=== PATIENT | female | born 1950 | race Asian ===

== ENCOUNTER 2016-10-20 14:01 | Inpatient (IN) | payer MEDICARE ==
[2016-10-20] MEDS ORDERED: ACETAMINOPHEN 325 MG TABLET PO ONE (14:11)
--- NOTE | 2016-10-20 14:14 | ER Document Report ---
ED Medical Screen (RME) - General Stated Complaint: DIFFICULTY BREATHING Time seen by provider: 14:09 Notes: Patient presents with family member complaining of trouble breathing, fever, pain all over her couple of days. Patient has a history of lung cancer, and only has one lung. Left lung removed 14 years ago. I have greeted and performed a rapid initial assessment of this patient. A comprehensive ED assessment and evaluation of the patient, analysis of test results and completion of the medical decision making process will be conducted by additional ED providers. TRAVEL OUTSIDE OF THE [place] IN LAST 30 DAYS: No - Related Data Allergies/Adverse Reactions: No Known Allergies Allergy (Verified 10/20/16 14:08) Past Medical History - Past Medical History Cardiac Medical History: Reports: Hx Congestive Heart Failure Denies: Hx Coronary Artery Disease, Hx Heart Attack, Hx Hypertension Pulmonary Medical History: Reports: Hx COPD - LEFT LUNG REMOVED, Hx Pneumonia Denies: Hx Asthma, Hx Bronchitis Neurological Medical History: Denies: Hx Cerebrovascular Accident, Hx Seizures Malignancy Medical History: Reports: Hx Lung Cancer Musculoskeltal Medical History: Denies Hx Arthritis Psychiatric Medical History: Denies: Hx Depression Past Surgical History: Denies: Hx Hysterectomy - Immunizations Hx Diphtheria, Pertussis, Tetanus Vaccination: Yes Physical Exam - Respiratory Respiratory status: Tachypnea - No wheezing or rhonchi noted on auscultation.
[2016-10-20 14:48] LABS: ABSOLUTE LYMPHOCYTES (AUTO) 0.8 10^3/uL (0.5-4.7); ABSOLUTE MONOCYTES (AUTO) 0.9 10^3/uL (0.1-1.4); ABSOLUTE NEUT (AUTO) 14.4 10^3/uL (1.7-8.2); BASOPHILS % (AUTO) 0.1 % (0-2); HEMATOCRIT 35.6 % (36.0-47.0); HGB HCT DIFFERENCE 0.4; LYMPHOCYTES % (AUTO) 5.1 % (13-45); MEAN CORPUSCULAR HGB CONC 33.6 g/dL (32.0-36.0); MEAN CORPUSCULAR VOLUME 89 fl (80-97); MONOCYTES % (AUTO) 5.3 % (3-13); RED BLOOD COUNT 3.99 10^6/uL (3.72-5.28); RED CELL DISTRIBUTION WIDTH 12.7 % (11.5-14.0); SEGMENTED NEUTROPHILS % (AUTO) 89.5 % (42-78); WHITE BLOOD COUNT 16.1 10^3/uL (4.0-10.5)
[2016-10-20 15:06] LABS: ALANINE AMINOTRANSFERASE 32 U/L (9-52); ALBUMIN 3.6 g/dL (3.5-5.0); ALKALINE PHOSPHATASE 87 U/L (38-126); ANION GAP 14 (5-19); ASPARTATE AMINO TRANSFERASE 26 U/L (14-36); BILIRUBIN,TOTAL 0.6 mg/dL (0.2-1.3); BLOOD UREA NITROGEN 18 mg/dL (7-20); CALCIUM 8.9 mg/dL (8.4-10.2); CARBON DIOXIDE 26 mmol/L (22-30); CHLORIDE 94 mmol/L (98-107); CREATINE KINASE 38 U/L (30-135); CREATININE RESULT 0.65 mg/dL (0.52-1.25); GLUCOSE 149 mg/dL (75-110); POTASSIUM 4.4 mmol/L (3.6-5.0); SODIUM 133.7 mmol/L (137-145); TOTAL PROTEIN 6.8 g/dL (6.3-8.2)
[2016-10-20 15:17] LABS: CREATINE KINASE MB 0.38 ng/mL (<4.55); TROPONIN I 0.02 ng/mL
[2016-10-20 15:24] LABS: APPEARANCE,URINE CLOUDY; BILIRUBIN,URINE NEGATIVE (NEGATIVE); GLUCOSE, URINE NEGATIVE (NEGATIVE); KETONES,URINE NEGATIVE (NEGATIVE); LEUKOCYTE ESTERASE,URINE TRACE (NEGATIVE); NITRITE,URINE NEGATIVE (NEGATIVE); PROTEIN,URINE 100 mg/dL (NEGATIVE); URINE SPECIFIC GRAVITY 1.028
--- NOTE | 2016-10-20 15:51 | ER Document Report ---
ED Respiratory Problem - General Chief Complaint: Breathing Difficulty Stated Complaint: DIFFICULTY BREATHING Information source: Patient Notes: Patient is a 65-year-old female with past medical history as recorded including a left lung partial resection around 14 years ago secondary to lung cancer, congestive heart failure with defibrillator placement, who presents today with the onset around 2 days ago of some body aches, chills, mild productive cough, runny nose and congestion. She also states a mild sore throat. She denies any fevers, abdominal pain, dysuria, or diarrhea. Patient also states the last 2 days she has had some pain to the area of her defibrillator site. She denies any swelling, redness, or discharge. She states that the pain is brought on by "touching the area". TRAVEL OUTSIDE OF THE [place] IN LAST 30 DAYS: No - HPI Patient complains to provider of: Cough, Short of breath Onset: Other - See above Duration: Better Quality of pain: Achy Severity: Mild Pain Level: 1 Context: Other - See above Short of Breath: Mild Cough: Productive Sputum amount: Scant Sputum color: Clear Associated symptoms: Other - See above Similar symptoms previously: Yes Recently seen / treated by doctor: Yes - Related Data Allergies/Adverse Reactions: No Known Allergies Allergy (Verified 10/20/16 14:08) Past Medical History - General Information source: Patient - Social History Smoking Status: Unknown if Ever Smoked Chew tobacco use (# tins/day): No Frequency of alcohol use: None Drug Abuse: None Family History: Reviewed & Not Pertinent Patient has suicidal ideation: No Patient has homicidal ideation: No - Past Medical History Cardiac Medical History: Reports: Hx Congestive Heart Failure Denies: Hx Coronary Artery Disease, Hx Heart Attack, Hx Hypertension Pulmonary Medical History: Reports: Hx COPD - LEFT LUNG REMOVED, Hx Pneumonia Denies: Hx Asthma, Hx Bronchitis Neurological Medical History: Denies: Hx Cerebrovascular Accident, Hx Seizures Renal/ Medical History: Denies: Hx Peritoneal Dialysis Malignancy Medical History: Reports: Hx Lung Cancer Musculoskeltal Medical History: Denies Hx Arthritis Psychiatric Medical History: Denies: Hx Depression Past Surgical History: Denies: Hx Hysterectomy - Immunizations Hx Diphtheria, Pertussis, Tetanus Vaccination: Yes Hx Pneumococcal Vaccination: 05/18/15 Review of Systems - Review of Systems Constitutional: Fever EENT: Nose congestion, Nose discharge. denies: Eye discharge Cardiovascular: denies: Palpitations Respiratory: Cough, Short of breath Gastrointestinal: denies: Vomiting Genitourinary: denies: Dysuria Musculoskeletal: denies: Leg swelling Skin: Other - no hives. denies: Rash Neurological/Psychological: Other - no slurred speech -: Yes All other systems reviewed and negative Physical Exam - Vital signs Vitals: Temp Pulse Resp BP Pulse Ox 102.3 F H 105 H 45 H 130/86 H 97 10/20/16 14:09 10/20/16 14:09 10/20/16 14:09 10/20/16 14:09 10/20/16 14:09 Notes: Reviewed vital signs and nursing note as charted by RN. CONSTITUTIONAL: Alert and oriented and responds appropriately to questions. Well -appearing; well-nourished HEAD: Normocephalic; atraumatic ENT: Normal nose; no rhinorrhea; moist mucous membranes; pharynx with a minimal erythema with a midline uvula with no peritonsillar swelling or exudate. NECK: Supple without meningismus; non-tender; no cervical lymphadenopathy, no masses CARD: Regular rate and rhythm; no murmurs, no clicks, no rubs, no gallops; symmetric distal pulses RESP: Mild decreased breath sounds to the left side consistent with previous surgery. No rhonchi or wheezing to the right lung caba. Patient has no obvious swelling, erythema to the left anterior defibrillator site. ABD/GI: Normal bowel sounds; non-distended; soft, non-tender BACK: The back appears normal and is non-tender to palpation, there is no CVA tenderness EXT: Normal ROM in all joints; non-tender to palpation; no cyanosis, no effusions, no edema SKIN: Normal color for age and race; warm; dry; good turgor; capillary refill < 2 seconds; no acute lesions noted NEURO: Moves all extremities equally; Motor and sensory function intact PSYCH: The patient's mood and manner are appropriate. Grooming and personal hygiene are appropriate. Course - Re-evaluation Re-evalutation: 10/20/16 15:50 Given the history and physical examination we will order an x-ray of the chest, obtain blood cultures, influenza testing, rapid strep, urinalysis, and reassess the patient. Antipyretics have been provided. Given the atypical nature of the chest pain that has been constant for 2 days, we will obtain one troponin and EKG. Heart rate 102, sinus tachycardia, normal axis, no obvious ST elevation or depression. Previous EKG shows no new or worrisome findings. - Vital Signs Vital signs: Temp Pulse Resp BP Pulse Ox 102.3 F H 105 H 32 H 113/79 93 10/20/16 14:09 10/20/16 14:09 10/20/16 15:00 10/20/16 15:01 10/20/16 15:00 - Laboratory Result Diagrams: 10/20/16 14:23 10/20/16 14:23 Laboratory results interpreted by me: 10/20/16 10/20/16 10/20/16 14:23 14:23 15:00 WBC 16.1 H Hct 35.6 L Seg Neutrophils % 89.5 H Lymphocytes % 5.1 L Absolute Neutrophils 14.4 H Sodium 133.7 L Chloride 94 L Glucose 149 H Urine Protein 100 H Urine Blood LARGE H Urine Urobilinogen 2.0 H Ur Leukocyte Esterase TRACE H Discharge - Discharge Clinical Impression: Chest wall pain Pneumonia Qualifiers: Pneumonia type: due to unspecified organism Laterality: right Lung location: middle lobe of lung Qualified Code(s): J18.1 - Lobar pneumonia, unspecified organism Condition: Fair Disposition: ADMITTED INPATIENT Admitting Provider: Hospitalist Unit Admitted: [facility]
--- NOTE | 2016-10-20 16:11 | EKG REPORT ---
SEVERITY:- ABNORMAL ECG - SINUS RHYTHM OLD ANTERIOR DE NONSPECIFIC LATERAL ST CHANGES. : Confirmed by: Kiran Arauz MD 20-Oct-2016 16:10:36
[2016-10-20] MEDS ORDERED: AZITHROMYCIN INJ 500 MG VIAL IV ONE (16:15)
[2016-10-20] MEDS ORDERED: CEFTRIAXONE RTU 1 GM/D5W 50 ML IV ONE (16:15)
[2016-10-20] MEDS ORDERED: IPRATROPIUM/ALBUTEROL 0.5-2.5 MG/3 ML AMPUL NEB PRN (17:42)
--- NOTE | 2016-10-20 17:54 | PDOC H&P ---
History of Present Illness Admission Date/PCP: 10/20/16 16:51 Dr Rivera Patient complains of: Shortness of breath History of Present Illness: CURT MONTERO is a 65 year old female with past medical history as recorded including a left lung partial resection around 14 years ago secondary to lung cancer, congestive heart failure with defibrillator placement, who presents today with the onset around 2 days ago of some body aches, chills, mild productive cough, runny nose and congestion. She also states a mild sore throat. She denies any fevers, abdominal pain, dysuria , or diarrhea. Patient also states the last 2 days she has had some pain to the area of her defibrillator site. She denies any swelling, redness, or discharge. She states that the pain is brought on by "touching the area". Upon evaluation in the ED patient was found to have a right lower lobe infiltrate, and a white count of 16,000 Her fever was 100.2 She was admitted under hospitalist service for intravenous antibiotics and further management Past Medical History Cardiac Medical History: Reports: Congestive Heart Failure Denies: Coronary Artery Disease, Myocardial Infarction, Hypertension Pulmonary Medical History: Reports: Chronic Obstructive Pulmonary Disease (COPD ) - LEFT LUNG REMOVED, Pneumonia Denies: Asthma, Bronchitis Neurological Medical History: Denies: Seizures Malignancy Medical History: Reports: Lung Cancer Musculoskeltal Medical History: Denies: Arthritis Psychiatric Medical History: Denies: Depression Hematology: Reports: Anemia Past Surgical History Past Surgical History: Reports: Other - Left pneumonectomy 2002 Denies: Hysterectomy Social History Information Source: Patient Lives with: Alone Smoking Status: Former Smoker - Until 2002 Frequency of Alcohol Use: None Hx Recreational Drug Use: No Drugs: None Hx Prescription Drug Abuse: No - Advance Directive Resuscitation Status: Full Code Surrogate healthcare decision maker:: Her daughter Dora Family History Parental Family History Reviewed: Yes - father of an [place] Children Family History Reviewed: Yes Sibling(s) Family History Reviewed.: Yes Medication/Allergy Home Medications: Aspirin [Aspirin 81 mg Chewable Tablet] 81 mg PO DAILY #30 tab.chew 09/11/14 Carvedilol [Coreg 6.25 mg Tablet] 6.25 mg PO Q12 #60 tablet 09/11/14 Digoxin [Lanoxin 0.125 mg Tablet] 0.125 mg PO DAILY #30 tablet 09/11/14 Fluticasone Propionate [Flonase Nasal [place] 50 Mcg/[place] 16 gm] 1 spray NASL DAILY #1 spray.pump 09/11/14 Lisinopril [Prinivil 5 mg Tablet] 2.5 mg PO DAILY #30 tablet 09/11/14 Thiamine HCl [Thiamine 100 mg Tablet] 100 mg PO DAILY #30 tablet 09/11/14 Aspirin 81 mg PO DAILY 09/07/15 Oxycodone HCl/Acetaminophen [Oxycodon-Acetaminophen 2.5-325] 1 each PO DAILY Pyridoxine HCl [Vitamin B-6] 25 mg PO DAILY 09/07/15 Allergies/Adverse Reactions: No Known Allergies Allergy (Verified 10/20/16 14:08) Review of Systems Constitutional: PRESENT: fever(s), weakness, other - Cough Eyes: ABSENT: visual disturbances Cardiovascular: PRESENT: chest pain - Pain no anterior chest wall where the defibrillator is, dyspnea on exertion Gastrointestinal: ABSENT: abdominal pain, constipation, diarrhea, hematemesis, hematochezia, nausea, vomiting Genitourinary: ABSENT: dysuria, hematuria Musculoskeletal: ABSENT: joint swelling Integumentary: ABSENT: rash, wounds Neurological: ABSENT: abnormal gait, abnormal speech, confusion, dizziness, focal weakness, syncope Psychiatric: ABSENT: anxiety, depression, homidical ideation, suicidal ideation Hematologic/Lymphatic: ABSENT: easy bleeding, easy bruising Physical Exam Vital Signs: Temp Pulse Resp BP Pulse Ox 100.2 F 105 H 22 H 124/72 97 10/20/16 17:10 10/20/16 14:09 10/20/16 17:01 10/20/16 17:01 10/20/16 17:01 General appearance: PRESENT: no acute distress, cooperative, thin Head exam: PRESENT: atraumatic, normocephalic Eye exam: PRESENT: conjunctiva pink, EOMI, PERRLA. ABSENT: scleral icterus Neck exam: ABSENT: carotid bruit, JVD, lymphadenopathy, thyromegaly Respiratory exam: PRESENT: decreased breath sounds. ABSENT: accessory muscle use, retraction Cardiovascular exam: PRESENT: RRR. ABSENT: diastolic murmur, rubs, systolic murmur Pulses: PRESENT: normal dorsalis pedis pul GI/Abdominal exam: PRESENT: normal bowel sounds, soft. ABSENT: distended, guarding, mass, organolmegaly, rebound, tenderness Musculoskeletal exam: PRESENT: full ROM. ABSENT: deformity Neurological exam: PRESENT: alert, awake, oriented to person, oriented to place , oriented to time, oriented to situation, CN II-XII grossly intact. ABSENT: motor sensory deficit Psychiatric exam: PRESENT: appropriate affect, normal mood. ABSENT: homicidal ideation, suicidal ideation Skin exam: PRESENT: dry, intact, warm. ABSENT: cyanosis, rash Results Laboratory Results: Labs- All tests 24 hr 10/20/16 10/20/16 10/20/16 14:23 14:23 14:23 WBC 16.1 H RBC 3.99 Hgb 12.0 Hct 35.6 L MCV 89 MCH 30.0 MCHC 33.6 RDW 12.7 Plt Count 201 Seg Neutrophils % 89.5 H Lymphocytes % 5.1 L Monocytes % 5.3 Eosinophils % 0.0 Basophils % 0.1 Absolute Neutrophils 14.4 H Absolute Lymphocytes 0.8 Absolute Monocytes 0.9 Absolute Eosinophils 0.0 Absolute Basophils 0.0 Sodium 133.7 L Potassium 4.4 Chloride 94 L Carbon Dioxide 26 Anion Gap 14 BUN 18 Creatinine 0.65 Est GFR ( Amer) > 60 Est GFR (Non-Af Amer) > 60 Glucose 149 H Lactic Acid Calcium 8.9 Total Bilirubin 0.6 Direct Bilirubin 0.0 AST 26 ALT 32 Alkaline Phosphatase 87 Creatine Kinase 38 CK-MB (CK-2) 0.38 Troponin I 0.020 Total Protein 6.8 Albumin 3.6 Urine Color Urine Appearance Urine pH Ur Specific [place] Urine Protein Urine Glucose (UA) Urine Ketones Urine Blood Urine Nitrite Urine Bilirubin Urine Urobilinogen Ur Leukocyte Esterase Urine WBC (Auto) Urine RBC (Auto) Urine Bacteria (Auto) Squamous Epi Cells Auto U Non-Squamous Epis Auto Urine Mucus (Auto) Urine Ascorbic Acid Influenza A (Rapid) Influenza B (Rapid) Group A Strep Rapid 10/20/16 10/20/16 10/20/16 14:23 15:00 15:00 WBC RBC Hgb Hct MCV MCH MCHC RDW Plt Count Seg Neutrophils % Lymphocytes % Monocytes % Eosinophils % Basophils % Absolute Neutrophils Absolute Lymphocytes Absolute Monocytes Absolute Eosinophils Absolute Basophils Sodium Potassium Chloride Carbon Dioxide Anion Gap BUN Creatinine Est GFR ( Amer) Est GFR (Non-Af Amer) Glucose Lactic Acid 1.2 Calcium Total Bilirubin Direct Bilirubin AST ALT Alkaline Phosphatase Creatine Kinase CK-MB (CK-2) Troponin I Total Protein Albumin Urine Color YELLOW Urine Appearance CLOUDY Urine pH 5.0 Ur Specific [place] 1.028 Urine Protein 100 H Urine Glucose (UA) NEGATIVE Urine Ketones NEGATIVE Urine Blood LARGE H Urine Nitrite NEGATIVE Urine Bilirubin NEGATIVE Urine Urobilinogen 2.0 H Ur Leukocyte Esterase TRACE H Urine WBC (Auto) 5 Urine RBC (Auto) >182 Urine Bacteria (Auto) TRACE Squamous Epi Cells Auto 5 U Non-Squamous Epis Auto 2 Urine Mucus (Auto) RARE Urine Ascorbic Acid NEGATIVE Influenza A (Rapid) NEGATIVE Influenza B (Rapid) NEGATIVE Group A Strep Rapid 10/20/16 15:26 WBC RBC Hgb Hct MCV MCH MCHC RDW Plt Count Seg Neutrophils % Lymphocytes % Monocytes % Eosinophils % Basophils % Absolute Neutrophils Absolute Lymphocytes Absolute Monocytes Absolute Eosinophils Absolute Basophils Sodium Potassium Chloride Carbon Dioxide Anion Gap BUN Creatinine Est GFR ( Amer) Est GFR (Non-Af Amer) Glucose Lactic Acid Calcium Total Bilirubin Direct Bilirubin AST ALT Alkaline Phosphatase Creatine Kinase CK-MB (CK-2) Troponin I Total Protein Albumin Urine Color Urine Appearance Urine pH Ur Specific [place] Urine Protein Urine Glucose (UA) Urine Ketones Urine Blood Urine Nitrite Urine Bilirubin Urine Urobilinogen Ur Leukocyte Esterase Urine WBC (Auto) Urine RBC (Auto) Urine Bacteria (Auto) Squamous Epi Cells Auto U Non-Squamous Epis Auto Urine Mucus (Auto) Urine Ascorbic Acid Influenza A (Rapid) Influenza B (Rapid) Group A Strep Rapid POSITIVE EKG Comments: SINUS RHYTHM - STMT - * OLD ANTERIOR [place] - STMT - * NONSPECIFIC LATERAL ST CHANGES Impressions: Chest X-Ray 10/20/16 14:11 IMPRESSION: Nodule versus early or developing right mid lung infiltrate Assessment & Plan - Diagnosis (1) Strep pharyngitis Is this a current diagnosis for this admission?: YesPlan: 10/20/16 15:26 Group A Strep Rapid POSITIVE We will continue ceftriaxone IV (2) Status post internal cardiac defibrillator procedure Is this a current diagnosis for this admission?: Yes (4) Pneumonia Qualifiers: Pneumonia type: due to unspecified organism Laterality: right Lung location: middle lobe of lung Qualified Code(s): J18.1 - Lobar pneumonia, unspecified organism Is this a current diagnosis for this admission?: YesPlan: Community-acquired pneumonia We'll continue ceftriaxone and azithromycin We will have a CT of the chest performed in a.m. as the infiltrate is not well delineated (5) Chronic systolic CHF (congestive heart failure) Is this a current diagnosis for this admission?: YesPlan: Last echocardiogram performed 06/16/2016 showed an EF of 55% and mild diastolic dysfunction Troponins are in intermediate range we will repeat them every 6 hours - Time Time Spent with patient: Patient will be admitted to an IMCU unit as an inpatient Time Spent: 50 to 70 Minutes - Inpatient Certification Based on my medical assessment, after consideration of the patient's comorbidities, presenting symptoms, or acuity I expect that the services needed warrant INPATIENT care.: Yes I certify that my determination is in accordance with my understanding of Medicare's requirements for reasonable and necessary INPATIENT services [42 CFR 412.3e].: Yes Medical Necessity: Need For Continuous Telemetry Monitoring, Need for Nebulizer Therapy and Monitoring of Response
[2016-10-20] MEDS: ACETAMINOPHEN 325 MG TABLET PO PRN (20:34)
[2016-10-20] MEDS: KETOROLAC TROMETHAMINE INJ/PF 30 MG/1 ML SDV IV PRN (20:57)
[2016-10-20] MEDS: FAMOTIDINE 20 MG TABLET PO SCH (23:22)
[2016-10-20] MEDS: CARVEDILOL 6.25 MG TABLET PO SCH (23:23)
[2016-10-21 04:23] LABS: HEMATOCRIT 32.2 % (36.0-47.0); HGB HCT DIFFERENCE 0.8; MEAN CORPUSCULAR HEMOGLOBIN 30.2 pg (27.0-33.4); MEAN CORPUSCULAR VOLUME 89 fl (80-97); RED BLOOD COUNT 3.63 10^6/uL (3.72-5.28); RED CELL DISTRIBUTION WIDTH 12.8 % (11.5-14.0); WHITE BLOOD COUNT 14.7 10^3/uL (4.0-10.5)
[2016-10-21 04:39] LABS: ALANINE AMINOTRANSFERASE 34 U/L (9-52); ALBUMIN 2.7 g/dL (3.5-5.0); ALKALINE PHOSPHATASE 64 U/L (38-126); ANION GAP 11 (5-19); ASPARTATE AMINO TRANSFERASE 26 U/L (14-36); BILIRUBIN,TOTAL 0.6 mg/dL (0.2-1.3); BLOOD UREA NITROGEN 23 mg/dL (7-20); CALCIUM 8.3 mg/dL (8.4-10.2); CARBON DIOXIDE 23 mmol/L (22-30); CHLORIDE 97 mmol/L (98-107); CREATININE RESULT 0.66 mg/dL (0.52-1.25); GLUCOSE 157 mg/dL (75-110); POTASSIUM 4.1 mmol/L (3.6-5.0); SODIUM 130.7 mmol/L (137-145); TOTAL PROTEIN 5.5 g/dL (6.3-8.2)
[2016-10-21] MEDS ORDERED: CEFTRIAXONE 1 GM/D5W RTU 1 GM/50 ML RTUPB IV SCH (10:00)
[2016-10-21] MEDS ORDERED: AZITHROMYCIN 500 MG in DEXTROSE 5%-WATER 250 ML IV SCH (10:00)
[2016-10-21] MEDS ORDERED: LISINOPRIL 5 MG TABLET PO SCH ×2 (10:00→18:00)
[2016-10-21] MEDS: ENOXAPARIN SODIUM INJ 30 MG/0.3 ML DISP.SYRIN SUBCUT SCH (10:54)
[2016-10-21] MEDS: CARVEDILOL 6.25 MG TABLET PO SCH (10:57)
[2016-10-21] MEDS: FAMOTIDINE 20 MG TABLET PO SCH ×2 (10:57→21:08)
[2016-10-21] MEDS: ASPIRIN 81 MG TABLET, CHEWABLE PO SCH (10:57)
[2016-10-21] MEDS ORDERED: CARVEDILOL 6.25 MG TABLET PO SCH (13:09)
[2016-10-21] MEDS ORDERED: FUROSEMIDE INJ/PF 20 MG/2 ML SDV IV ONE (14:00)
--- NOTE | 2016-10-21 15:37 | PDOC PROGRESS REPORT ---
Subjective Progress Note for:: 10/21/16 Subjective:: 65 year old female extremely frail with a known history of left pneumonectomy for Ca about 13 years ago, previous smoker Was admitted with increasing shortness of breath patient was diagnosed of pneumonia ; a CT of the chest performed yesterday showed infiltrates in the right middle and lower lobe Patient was still febrile this morning but feeling somewhat better, she is currently on Levaquin and cefepime She has no chest pain, nausea vomiting or abdominal pain Although she is still somewhat tachypneic she is oxygenating today at 94% on 2 L /mn Physical Exam Vital Signs: Temp Pulse Resp BP Pulse Ox 101.4 F H 92 28 H 116/59 L 94 10/21/16 11:21 10/21/16 14:00 10/21/16 12:15 10/21/16 11:21 10/21/16 12:15 Intake & Output 10/20/16 10/21/16 10/22/16 00:59 00:59 00:59 Intake Total 208 Balance 208 Weight 40.7 kg General appearance: PRESENT: no acute distress, cooperative Head exam: PRESENT: atraumatic, normocephalic Eye exam: PRESENT: conjunctiva pink, EOMI, PERRLA. ABSENT: scleral icterus Neck exam: ABSENT: carotid bruit, JVD, lymphadenopathy, thyromegaly Respiratory exam: PRESENT: accessory muscle use, decreased breath sounds, tachypnea, wheezes Cardiovascular exam: PRESENT: RRR. ABSENT: gallop, rubs, systolic murmur Pulses: PRESENT: normal dorsalis pedis pul GI/Abdominal exam: PRESENT: normal bowel sounds, soft. ABSENT: distended, guarding, mass, organolmegaly, rebound, tenderness Neurological exam: PRESENT: alert, awake, oriented to person, oriented to place , oriented to time, oriented to situation, CN II-XII grossly intact. ABSENT: motor sensory deficit Skin exam: PRESENT: dry, intact, warm. ABSENT: cyanosis, rash Results Laboratory Results: 10/21/16 04:01 10/21/16 04:01 10/21/16 10/21/16 10/21/16 04:01 04:01 04:01 WBC 14.7 H RBC 3.63 L Hgb 11.0 L Hct 32.2 L MCV 89 MCH 30.2 MCHC 34.0 RDW 12.8 Plt Count 150 Sodium 130.7 L Potassium 4.1 Chloride 97 L Carbon Dioxide 23 Anion Gap 11 BUN 23 H Creatinine 0.66 Est GFR ( Amer) > 60 Est GFR (Non-Af Amer) > 60 Glucose 157 H Calcium 8.3 L Total Bilirubin 0.6 AST 26 ALT 34 Alkaline Phosphatase 64 Total Protein 5.5 L Albumin 2.7 L TSH 1.05 10/20/16 10/21/16 20:05 04:01 Troponin I 0.018 0.016 EKG Comments: STMT - * SINUS RHYTHM - STMT - * OLD ANTERIOR [place] - STMT - * NONSPECIFIC LATERAL ST CHANGES Impressions: Chest X-Ray 10/20/16 14:11 IMPRESSION: Nodule versus early or developing right mid lung infiltrate Chest CT 10/21/16 08:00 IMPRESSION: Right middle and lower lobe airspace disease. In the appropriate clinical setting this is consistent with pneumonia. However there are all small pulmonary nodules so the possibility of metastatic disease cannot be excluded. Empiric therapy and follow-up is recommended. Assessment & Plan - Diagnosis (1) Strep pharyngitis Is this a current diagnosis for this admission?: YesPlan: Continue treatment with ceftriaxone (2) Status post internal cardiac defibrillator procedure Is this a current diagnosis for this admission?: Yes (4) Pneumonia Qualifiers: Pneumonia type: due to unspecified organism Laterality: right Lung location: middle lobe of lung Qualified Code(s): J18.1 - Lobar pneumonia , unspecified organism Is this a current diagnosis for this admission?: YesPlan: No sputum has been obtained yet; 2 blood cultures were negative Continue broad spectrum with Levaquin and cefepime (5) Diastolic CHF Qualifiers: Congestive heart failure chronicity: chronic Qualified Code(s): I50.32 - Chronic diastolic (congestive) heart failure Is this a current diagnosis for this admission?: YesPlan: Chronic diastolic CHF Patient has had BNP is over 20,000 in the past We will just give the patient 10 mg IV Lasix Noted that an echocardiogram performed on 06/01/2016 showed an EF of 55% and mild diastolic dysfunction (6) Pulmonary nodules Is this a current diagnosis for this admission?: YesPlan: 2 nodules described in the right lower lobe Patient should be followed as an outpatient with serial CAT scans - Time Time Spent with patient: 25-34 minutes
[2016-10-21] MEDS: ACETAMINOPHEN 325 MG TABLET PO PRN (15:41)
[2016-10-21] MEDS: CEFEPIME 1 GM/D5W RTU 1 GM/50 ML RTUPB IV SCH (18:38)
[2016-10-21] MEDS: CARVEDILOL 3.125 MG TABLET PO SCH (21:08)
[2016-10-21] MEDS: LISINOPRIL 5 MG TABLET PO SCH (21:08)
[2016-10-21] MEDS: KETOROLAC TROMETHAMINE INJ/PF 30 MG/1 ML SDV IV PRN (21:11)
[2016-10-22] MEDS: CEFEPIME 1 GM/D5W RTU 1 GM/50 ML RTUPB IV SCH (05:39)
[2016-10-22] MEDS: LISINOPRIL 5 MG TABLET PO SCH (09:11)
[2016-10-22] MEDS: FAMOTIDINE 20 MG TABLET PO SCH (09:11)
[2016-10-22] MEDS: ASPIRIN 81 MG TABLET, CHEWABLE PO SCH (09:11)
[2016-10-22] MEDS: ENOXAPARIN SODIUM INJ 30 MG/0.3 ML DISP.SYRIN SUBCUT SCH (09:12)
[2016-10-22] MEDS: CARVEDILOL 3.125 MG TABLET PO SCH (09:12)
[2016-10-22] MEDS ORDERED: AZITHROMYCIN 250 MG TABLET PO SCH (10:00)
--- NOTE | 2016-10-22 10:30 | PDOC DISCHARGE SUMMARY ---
General - Admit/Disc Date/PCP Admission Date/Primary Care Provider: 10/20/16 17:42 Discharge Date: 10/22/16 - Discharge Diagnosis (1) Chest wall pain Is this a current diagnosis for this admission?: YesSummary: Resolved and likely secondary to pneumonia, possibly related to scar tissue and around the pacer pocket without evidence of acute infection or complication. (2) Pneumonia Is this a current diagnosis for this admission?: YesSummary: Likely strep, continue a 10 day course of penicillin. Follow up with primary care provider in 10 days to confirm clearing. (3) Pulmonary nodules Is this a current diagnosis for this admission?: YesSummary: Likely related to the acute infection, recommend follow-up CT scan in 3-6 months. (4) Strep pharyngitis Is this a current diagnosis for this admission?: YesSummary: Continue penicillin therapy for an additional 10 days. Salt water gargles as needed. - Additional Information Resuscitation Status: Full Code Discharge Diet: As Tolerated Discharge Activity: Activity As Tolerated Home Medications: Aspirin [Aspirin 325 mg Tablet] 325 mg PO DAILY 10/21/16 Gabapentin [Neurontin 300 mg Capsule] 300 mg PO QHS 10/21/16 Acetaminophen [Tylenol 325 mg Tablet] 650 mg PO Q6HP PRN tablet 10/22/16 Amox Tr/Potassium Clavulanate [Augmentin 875-125 mg Tablet] 1 tab PO BID #20 tablet 10/22/16 Carvedilol [Coreg 3.125 mg Tablet] 3.125 mg PO Q12 #60 tablet 10/22/16 Lisinopril [Prinivil 5 mg Tablet] 2.5 mg PO Q12 #30 tablet 10/22/16 History of Present Illness Patient complains of: Cough and congestion with fevers and chills History of Present Illness: CURT MONTERO is a 65 year old female with past medical history as recorded including a left lung partial resection around 14 years ago secondary to lung cancer, congestive heart failure with defibrillator placement, who presents today with the onset around 2 days ago of some body aches, chills, mild productive cough, runny nose and congestion. She also states a mild sore throat. She denies any fevers, abdominal pain, dysuria , or diarrhea. Patient also states the last 2 days she has had some pain to the area of her defibrillator site. She denies any swelling, redness, or discharge. She states that the pain is brought on by "touching the area". Upon evaluation in the ED patient was found to have a right lower lobe infiltrate, and a white count of 16,000 Her fever was 100.2 She was admitted under hospitalist service for intravenous antibiotics and further management Hospital Course Hospital Course: She was admitted to the hospital and started on broad spectrum antibiotics, rapid strep screen was positive, blood cultures 2 were negative, CT of the chest showed a multilobar pneumonia in the right middle and lower lobe with small pulmonary nodules incidentally noted. Over the course of the next 48 hours she rapidly improved, was weaned off supplemental oxygen easily and on the day of discharge is actually asking to go home. She states her fever broke more than 24 hours ago and since that time she has felt well enough to go home. She is currently oxygenating greater than 94% on room air for this provider at the bedside. She is able speak in complete word sentences without pausing for respiration and is clearly in no acute distress. At this point she is stable for discharge home. She should follow-up with her primary care provider in 7-10 days to confirm clearing of the pneumonia and resolution of the pharyngitis. She can return to the emergency department for any worsening in her condition. Physical Exam Vital Signs: Temp Pulse Resp BP Pulse Ox 97.3 F 66 18 128/61 H 95 10/22/16 07:35 10/22/16 07:35 10/22/16 07:35 10/22/16 07:35 10/22/16 07:35 Intake & Output 10/21/16 10/22/16 10/23/16 06:59 06:59 06:59 Intake Total 208 1993 Balance 208 1993 Weight 40.7 kg 40.1 kg EXAM GENERAL: NAD; well developed, well nourished; no obese; alert and oriented to person, place, time, situation HEENT: normocephalic, atraumatic; no conjunctival injection, no scleral icterus ; oral mucosa moist; posterior oropharynx mildly erythematous without exudate, erosions or lesions; no cervical adenopathy RESPIRATORY: no accessory muscle use, no increased WOB, good air entry bilaterally; no wheezes, rales, rhonchi; bilateral right greater than left inspiratory crackles, mild CARDIO: no JVD; RRR; no systolic murmur; no tachycardia GI: soft; nondistended; normal bowel sounds; no rebound, rigidity, guarding VASCULAR: no carotid bruit; no abdominal bruit; no pallor; 2+ radial, DP pulse ; normal capillary refill EXTREMITIES: no calf tender; no palpable cords in calf; no clubbing, cyanosis , pedal edema PSYCH: normal affect, normal mood SKIN: warm; moist; no petechiae; no telengectasias; no jaundice; no rash Results Laboratory Results: 10/21/16 04:01 10/21/16 04:01 10/20/16 10/21/16 20:05 04:01 Troponin I 0.018 0.016 Impressions: Chest X-Ray 10/20/16 14:11 IMPRESSION: Nodule versus early or developing right mid lung infiltrate Chest CT 10/21/16 08:00 IMPRESSION: Right middle and lower lobe airspace disease. In the appropriate clinical setting this is consistent with pneumonia. However there are all small pulmonary nodules so the possibility of metastatic disease cannot be excluded. Empiric therapy and follow-up is recommended. Qualifiers PATEINT BEING DISCHARGED WITH ANY OF THE FOLLOWING DIAGNOSIS?: No VTE patient discharged on overlapping Therapy?: Yes Plan Discharge Plan: Discharge home for continued antibiotics, follow-up with PCP in 7-10 days, return to the emergency if worsening condition. Patient expresses no concerns about going home today and quite in fact anxious to go home. Time Spent: Greater than 30 Minutes
[2016-10-22 16:19] VITALS: BP 119/62
== END 2016-10-22 17:39 | disposition home or self-care (01) | DRG 152 ==
LOC: ER 14:01 → UNDOADMIN 16:51 → EH 16:51 → 3W 18:37
PROVIDERS: ADMIT Emergency Medicine; ATTEND Emergency Medicine
DX: J02.0 Streptococcal pharyngitis (principal); J18.1 Lobar pneumonia, unspecified organism; J18.9 Pneumonia, unspecified organism; I50.22 Chronic systolic (congestive) heart failure; J44.0 Chronic obstructive pulmonary disease with (acute) lower respiratory infection; R91.1 Solitary pulmonary nodule; Z85.118 Personal history of other malignant neoplasm of bronchus and lung; Z90.2 Acquired absence of lung [part of]; Z95.810 Presence of automatic (implantable) cardiac defibrillator; Z87.891 Personal history of nicotine dependence
CPT/HCPCS: 36415; 71020; 71250; 80053; 81001; 82550; 82553; 83605; 83880; 84443; 84484; 85025; 85027; 87040; 87804; 87880; 93005; 93010; 94660; 96374; 99285; J0456; J0692; J0696; J1650; J1885; J1940; J7060; J7620

== ENCOUNTER 2017-02-06 17:11 | Emergency (ER) | payer MEDICARE ==
--- NOTE | 2017-02-06 18:03 | ER Document Report ---
ED Medical Screen (RME) - General Chief Complaint: Abdominal Pain Stated Complaint: BLOOD IN URINE Time Seen by Provider: 02/06/17 17:48 Notes: Patient is complaining of pain with urinating since this morning. Has been off and on in the past. Noted some blood in the toilet bowl after urinating this morning. She first started having this problem 5 or 6 months ago. She has seen a local urologist and, according to the daughter, had a cystoscopy done and there were no significant findings such as cancer, etc. Patient has not had a fever. History of lung cancer surgery many years ago. History of defibrillator. Hypertension. TRAVEL OUTSIDE OF THE [place] IN LAST 30 DAYS: No - Related Data Allergies/Adverse Reactions: No Known Allergies Allergy (Verified 10/20/16 14:08) Past Medical History - Past Medical History Cardiac Medical History: Reports: Hx Congestive Heart Failure Denies: Hx Coronary Artery Disease, Hx Heart Attack, Hx Hypertension Pulmonary Medical History: Reports: Hx COPD - LEFT LUNG REMOVED, Hx Pneumonia Denies: Hx Asthma, Hx Bronchitis Neurological Medical History: Denies: Hx Cerebrovascular Accident, Hx Seizures Renal/ Medical History: Denies: Hx Peritoneal Dialysis Malignancy Medical History: Reports: Hx Lung Cancer Musculoskeltal Medical History: Denies Hx Arthritis Psychiatric Medical History: Denies: Hx Depression Past Surgical History: Reports: Other - Left pneumonectomy 2002. Denies: Hx Hysterectomy - Immunizations Hx Diphtheria, Pertussis, Tetanus Vaccination: Yes Physical Exam - Vital signs Vitals: Temp Pulse Resp BP Pulse Ox 97.6 F 84 24 H 129/63 H 97 02/06/17 17:17 02/06/17 17:17 02/06/17 17:17 02/06/17 17:17 02/06/17 17:17 Course - Vital Signs Vital signs: Temp Pulse Resp BP Pulse Ox 97.6 F 84 24 H 129/63 H 97 02/06/17 17:17 02/06/17 17:17 02/06/17 17:17 02/06/17 17:17 02/06/17 17:17
[2017-02-06 18:11] LABS: ABSOLUTE EOSINOPHILS # (AUTO) 0.2 10^3/uL (0.0-0.6); ABSOLUTE LYMPHOCYTES (AUTO) 1.9 10^3/uL (0.5-4.7); ABSOLUTE MONOCYTES (AUTO) 0.5 10^3/uL (0.1-1.4); ABSOLUTE NEUT (AUTO) 2.9 10^3/uL (1.7-8.2); BASOPHILS % (AUTO) 0.4 % (0-2); EOSINOPHILS % (AUTO) 3.5 % (0-6); HEMATOCRIT 38.2 % (36.0-47.0); HEMOGLOBIN 12.7 g/dL (12.0-15.5); HGB HCT DIFFERENCE -0.1; LYMPHOCYTES % (AUTO) 34.5 % (13-45); MEAN CORPUSCULAR HEMOGLOBIN 29.8 pg (27.0-33.4); MEAN CORPUSCULAR HGB CONC 33.2 g/dL (32.0-36.0); MEAN CORPUSCULAR VOLUME 90 fl (80-97); MONOCYTES % (AUTO) 9.4 % (3-13); RED BLOOD COUNT 4.26 10^6/uL (3.72-5.28); RED CELL DISTRIBUTION WIDTH 12.5 % (11.5-14.0); SEGMENTED NEUTROPHILS % (AUTO) 52.2 % (42-78); WHITE BLOOD COUNT 5.5 10^3/uL (4.0-10.5)
[2017-02-06 18:22] LABS: PROTHROMBIN TIME 13.4 SEC (11.4-15.4)
[2017-02-06 18:35] LABS: ALANINE AMINOTRANSFERASE 27 U/L (9-52); ALBUMIN 3.8 g/dL (3.5-5.0); ALKALINE PHOSPHATASE 84 U/L (38-126); ANION GAP 10 (5-19); ASPARTATE AMINO TRANSFERASE 26 U/L (14-36); BILIRUBIN,DIRECT 0.2 mg/dL (0.0-0.4); BILIRUBIN,TOTAL 0.3 mg/dL (0.2-1.3); BLOOD UREA NITROGEN 8 mg/dL (7-20); CALCIUM 9.1 mg/dL (8.4-10.2); CARBON DIOXIDE 29 mmol/L (22-30); CHLORIDE 100 mmol/L (98-107); CREATININE RESULT 0.61 mg/dL (0.52-1.25); GLUCOSE 103 mg/dL (75-110); POTASSIUM 4.2 mmol/L (3.6-5.0); SODIUM 139.2 mmol/L (137-145); TOTAL PROTEIN 7.1 g/dL (6.3-8.2)
[2017-02-06 18:47] LABS: APPEARANCE,URINE CLEAR; BILIRUBIN,URINE NEGATIVE (NEGATIVE); GLUCOSE, URINE NEGATIVE (NEGATIVE); KETONES,URINE NEGATIVE (NEGATIVE); LEUKOCYTE ESTERASE,URINE NEGATIVE (NEGATIVE); NITRITE,URINE NEGATIVE (NEGATIVE); PROTEIN,URINE NEGATIVE (NEGATIVE); URINE SPECIFIC GRAVITY 1.002; UROBILINOGEN,URINE NEGATIVE mg/dL (<2.0)
--- NOTE | 2017-02-06 21:08 | RADIOLOGY REPORT (SQ) ---
EXAM DESCRIPTION: CT LTD RENAL STONE PROTOCOL ON COMPLETED DATE/TIME: 02/06/2017 8:50 pm REASON FOR STUDY: flank pain, right hematura COMPARISON: May 2015 TECHNIQUE: CT scan of the abdomen and pelvis performed without intravenous or oral contrast. Images reviewed with lung, soft tissue, and bone windows. Reconstructed coronal and sagittal MPR images revi ewed. All images stored on PACS. All CT scanners at this facility use dose modulation, iterative reconstruction, and/or weight based d osing when appropriate to reduce radiation dose to as low as reasonably achievable (ALARA). [facility]: Dose Right [facility]: CareDose [facility]: Dose Right [facility]: Teradose 4D [facility]: [employer] RADIATION DOSE: 4.80mGy. LIMITATIONS: None. FINDINGS: LOWER CHEST: Patient is status post left pneumonectomy. NON-CONTRASTED LIVER, SPLEEN, ADRENALS: Evaluation limited by lack of IV contrast. No identified sign ificant masses. PANCREAS: No masses. No peripancreatic inflammatory changes. GALLBLADDER: No identified stones by CT criteria. No inflammatory changes to suggest cholecystitis. RIGHT KIDNEY AND URETER: No suspicious masses. Assessment limited by lack of IV contrast. No signif icant calcifications. No hydronephrosis or hydroureter. LEFT KIDNEY AND URETER: No suspicious masses. Assessment limited by lack of IV contrast. No signifi cant calcifications. No hydronephrosis or hydroureter. AORTA AND RETROPERITONEUM: No aneurysm. No retroperitoneal masses or adenopathy. BOWEL AND PERITONEAL CAVITY: No obvious masses or inflammatory changes. No free fluid. APPENDIX: Normal. PELVIS, BLADDER, AND ABDOMINAL WALL:No abnormal masses. No free fluid. Bladder normal. BONES: No significant findings. OTHER: No other significant finding. IMPRESSION: NO SIGNIFICANT OR ACUTE PROCESS IN THE ABDOMEN OR PELVIS. TECHNICAL DOCUMENTATION: JOB ID: [id number] Quality ID # [id number]: Final reports with documentation of one or more dose reduction techniques (e.g., Au tomated exposure control, adjustment of the mA and/or kV according to patient size, use of iterative reconstruction technique) 2010 [employer]- All Rights Reserved
--- NOTE | 2017-02-06 21:17 | ER Document Report ---
ED General - General Chief Complaint: Abdominal Pain Stated Complaint: BLOOD IN URINE Time Seen by Provider: 02/06/17 17:48 Mode of Arrival: Ambulatory Information source: Patient, Relative Notes: 66-year-old female presents with complaints of hematuria. Patient notes symptoms started just prior to arrival, patient has urinated since and the bleeding has stopped. Patient admits to mild right flank pain Denies any fevers chills nausea vomiting or diarrhea TRAVEL OUTSIDE OF THE [place] IN LAST 30 DAYS: No - HPI Onset: Just prior to arrival Onset/Duration: Sudden Quality of pain: Achy Severity: Mild Pain Level: 1 Associated symptoms: None Exacerbated by: Denies Relieved by: Denies Similar symptoms previously: No Recently seen / treated by doctor: No - Related Data Allergies/Adverse Reactions: No Known Allergies Allergy (Verified 10/20/16 14:08) Past Medical History - Social History Smoking Status: Never Smoker Cigarette use (# per day): No Chew tobacco use (# tins/day): No Smoking Education Provided: No Family History: Reviewed & Not Pertinent Patient has suicidal ideation: No Patient has homicidal ideation: No - Past Medical History Cardiac Medical History: Reports: Hx Congestive Heart Failure Denies: Hx Coronary Artery Disease, Hx Heart Attack, Hx Hypertension Pulmonary Medical History: Reports: Hx COPD - LEFT LUNG REMOVED, Hx Pneumonia Denies: Hx Asthma, Hx Bronchitis Neurological Medical History: Denies: Hx Cerebrovascular Accident, Hx Seizures Renal/ Medical History: Denies: Hx Peritoneal Dialysis Malignancy Medical History: Reports: Hx Lung Cancer Musculoskeltal Medical History: Denies Hx Arthritis Psychiatric Medical History: Denies: Hx Depression Past Surgical History: Reports: Other - Left pneumonectomy 2002. Denies: Hx Hysterectomy - Immunizations Hx Diphtheria, Pertussis, Tetanus Vaccination: Yes Hx Pneumococcal Vaccination: 05/18/15 Review of Systems - Review of Systems Notes: REVIEW OF SYSTEMS: CONSTITUTIONAL : Denies fever, chills, or sweats. Denies recent illness. EENT: Denies eye, ear, throat, or mouth pain or symptoms. Denies nasal or sinus congestion or discharge. Denies throat, tongue, or mouth swelling or difficulty swallowing. CARDIOVASCULAR: Denies chest pain. Denies palpitations or racing or irregular heart beat. Denies ankle edema. RESPIRATORY: Denies cough, cold, or chest congestion. Denies shortness of breath, difficulty breathing, or wheezing. GASTROINTESTINAL: Denies abdominal pain or distention. Denies nausea, vomiting , or diarrhea. Denies blood in vomitus, stools, or per rectum. Denies black, tarry stools. Denies constipation. Admits to right flank pain GENITOURINARY: Admits to blood in urine FEMALE GENITOURINARY: Denies vaginal bleeding, heavy or abnormal periods, irregular periods. Denies vaginal discharge or odor. MUSCULOSKELETAL: Denies back or neck pain or stiffness. Denies joint pain or swelling. SKIN: Denies rash, lesions or sores. HEMATOLOGIC : Denies easy bruising or bleeding. LYMPHATIC: Denies swollen, enlarged glands. NEUROLOGICAL: Denies confusion or altered mental status. Denies passing out or loss of consciousness. Denies dizziness or lightheadedness. Denies headache. Denies weakness or paralysis or loss of use of either side. Denies problems with gait or speech. Denies sensory loss, numbness, or tingling. Denies seizures. PSYCHIATRIC: Denies anxiety or stress. Denies depression, suicidal ideation, or homicidal ideation. ALL OTHER SYSTEMS REVIEWED AND NEGATIVE. PHYSICAL EXAMINATION: GENERAL: Well-appearing, well-nourished and in no acute distress. HEAD: Atraumatic, normocephalic. EYES: Pupils equal round and reactive to light, extraocular movements intact, conjunctiva are normal. ENT: Nares patent, oropharynx clear without exudates. Moist mucous membranes. NECK: Normal range of motion, supple without lymphadenopathy LUNGS: Breath sounds clear to auscultation bilaterally and equal. No wheezes rales or rhonchi. HEART: Regular rate and rhythm without murmurs ABDOMEN: Soft, nontender, nondistended abdomen. No guarding, no rebound. No masses appreciated. Female : deferred Musculoskeletal: Normal range of motion, no pitting or edema. No cyanosis. NEUROLOGICAL: Cranial nerves grossly intact. Normal speech, normal gait. Normal sensory, motor exams PSYCH: Normal mood, normal affect. SKIN: Warm, Dry, normal turgor, no rashes or lesions noted. Dictation was performed using [employer] recognition software Physical Exam - Vital signs Vitals: Temp Pulse Resp BP Pulse Ox 97.6 F 84 24 H 129/63 H 97 02/06/17 17:17 02/06/17 17:17 06/22/17 17:17 02/06/17 17:17 02/06/17 17:17 Course - Re-evaluation Re-evalutation: 02/06/17 21:16 CT noted no acute abnormality patient will be given follow-up with urology for hematuria and is otherwise well-appearing stable for discharge Urinalysis notes no sign of infection After performing a Medical Screening Examination, I estimate there is LOW risk for ACUTE APPENDICITIS, BOWEL OBSTRUCTION, ACUTE CHOLECYSTITIS, PERFORATED DIVERTICULITIS, INCARCERATED HERNIA, PANCREATITIS, PELVIC INFLAMMATORY DISEASE, PERFORATED ULCER, ECTOPIC , or TUBO-OVARIAN ABSCESS, thus I consider the discharge disposition reasonable. Also, there is no evidence or peritonitis , sepsis, or toxicity. I have reevaluated this patient multiple times and no significant life threatening changes are noted. The patient and I have discussed the diagnosis and risks, and we agree with discharging home with close follow-up with the understanding that symptoms and presentations can change. We also discussed returning to the Emergency Department immediately if new or worsening symptoms occur. We have discussed the symptoms which are most concerning (e.g., bloody stool, fever, changing or worsening pain, vomiting) that necessitate immediate return. 02/07/17 02:10 - Vital Signs Vital signs: Temp Pulse Resp BP Pulse Ox 97.6 F 74 18 112/57 L 97 02/06/17 21:37 02/06/17 21:37 02/06/17 21:37 02/06/17 21:37 02/06/17 21:37 - Laboratory Result Diagrams: 02/06/17 18:00 02/06/17 18:00 Laboratory results interpreted by me: 02/06/17 18:00 Urine Blood SMALL H - Diagnostic Test Radiology reviewed: Image reviewed, Reports reviewed - No acute abnormality Discharge - Discharge Clinical Impression: Hematuria, Flank pain Condition: Stable Disposition: HOME, SELF-CARE Instructions: Hematuria (OM) Referrals: INEZ ADAN DO [Primary Care Provider] - Follow up as needed REBECCA HUGO MD [ACTIVE STAFF] - Follow up tomorrow
[2017-02-06 21:38] VITALS: BP 112/57
== END 2017-02-06 21:50 | disposition home or self-care (01) ==
LOC: ER 17:11
DX: R31.9 Hematuria, unspecified (principal); R10.9 Unspecified abdominal pain; J44.9 Chronic obstructive pulmonary disease, unspecified; Z85.118 Personal history of other malignant neoplasm of bronchus and lung; Z90.2 Acquired absence of lung [part of]
CPT/HCPCS: 36415; 76380; 80053; 81001; 85025; 85610; 87086; 99284

== ENCOUNTER 2017-03-06 17:51 | Inpatient (IN) | payer MEDICARE ==
[2017-03-06] MEDS ORDERED: NORMAL SALINE 1000 ML 1,000 ML IV ONE (18:07)
--- NOTE | 2017-03-06 18:09 | ER Document Report ---
ED Medical Screen (RME) - General Chief Complaint: Fever Stated Complaint: DIFFICULTY BREATHING Time Seen by Provider: 03/06/17 18:07 Notes: Patient has had cough with green sputum fever and shortness of breath for 3-4 days. Patient has had a similar episode in the past with pneumonia. Patient does have a history of a lobectomy for lung cancer. TRAVEL OUTSIDE OF THE [place] IN LAST 30 DAYS: No - Related Data Allergies/Adverse Reactions: No Known Allergies Allergy (Verified 10/20/16 14:08) Past Medical History - Past Medical History Cardiac Medical History: Reports: Hx Congestive Heart Failure Denies: Hx Coronary Artery Disease, Hx Heart Attack, Hx Hypertension Pulmonary Medical History: Reports: Hx COPD - LEFT LUNG REMOVED, Hx Pneumonia Denies: Hx Asthma, Hx Bronchitis Neurological Medical History: Denies: Hx Cerebrovascular Accident, Hx Seizures Renal/ Medical History: Denies: Hx Peritoneal Dialysis Malignancy Medical History: Reports: Hx Lung Cancer Musculoskeltal Medical History: Denies Hx Arthritis Psychiatric Medical History: Denies: Hx Depression Past Surgical History: Reports: Other - Left pneumonectomy 2002. Denies: Hx Hysterectomy - Immunizations Hx Diphtheria, Pertussis, Tetanus Vaccination: Yes Physical Exam - Vital signs Vitals: Temp Pulse Resp BP Pulse Ox 99.1 F 103 H 18 109/65 96 03/06/17 17:55 03/06/17 17:55 03/06/17 17:55 03/06/17 17:55 03/06/17 17:55 Course - Vital Signs Vital signs: Temp Pulse Resp BP Pulse Ox 99.1 F 103 H 18 109/65 96 03/06/17 17:55 03/06/17 17:55 03/06/17 17:55 03/06/17 17:55 03/06/17 17:55
[2017-03-06 18:43] LABS: ABSOLUTE LYMPHOCYTES (AUTO) 0.8 10^3/uL (0.5-4.7); ABSOLUTE MONOCYTES (AUTO) 1.4 10^3/uL (0.1-1.4); ABSOLUTE NEUT (AUTO) 9.4 10^3/uL (1.7-8.2); BASOPHILS % (AUTO) 0.1 % (0-2); EOSINOPHILS % (AUTO) 0.2 % (0-6); HEMATOCRIT 32.7 % (36.0-47.0); HEMOGLOBIN 11.2 g/dL (12.0-15.5); HGB HCT DIFFERENCE 0.9; LYMPHOCYTES % (AUTO) 6.7 % (13-45); MEAN CORPUSCULAR HEMOGLOBIN 30.6 pg (27.0-33.4); MEAN CORPUSCULAR HGB CONC 34.1 g/dL (32.0-36.0); MEAN CORPUSCULAR VOLUME 90 fl (80-97); MONOCYTES % (AUTO) 12.1 % (3-13); RED BLOOD COUNT 3.65 10^6/uL (3.72-5.28); SEGMENTED NEUTROPHILS % (AUTO) 80.9 % (42-78); WHITE BLOOD COUNT 11.6 10^3/uL (4.0-10.5)
[2017-03-06 18:54] LABS: ALANINE AMINOTRANSFERASE 36 U/L (9-52); ALBUMIN 3.4 g/dL (3.5-5.0); ALKALINE PHOSPHATASE 99 U/L (38-126); ANION GAP 13 (5-19); ASPARTATE AMINO TRANSFERASE 33 U/L (14-36); BILIRUBIN,DIRECT 0.2 mg/dL (0.0-0.4); BILIRUBIN,TOTAL 0.8 mg/dL (0.2-1.3); BLOOD UREA NITROGEN 12 mg/dL (7-20); CALCIUM 8.5 mg/dL (8.4-10.2); CARBON DIOXIDE 23 mmol/L (22-30); CHLORIDE 95 mmol/L (98-107); CREATININE RESULT 0.57 mg/dL (0.52-1.25); GLUCOSE 186 mg/dL (75-110); POTASSIUM 4.3 mmol/L (3.6-5.0); SODIUM 131.1 mmol/L (137-145); TOTAL PROTEIN 6.9 g/dL (6.3-8.2)
--- NOTE | 2017-03-06 19:00 | ER Document Report ---
ED Fever - General Chief Complaint: Fever Stated Complaint: DIFFICULTY BREATHING Time Seen by Provider: 03/06/17 18:07 Mode of Arrival: Ambulatory Information source: Patient TRAVEL OUTSIDE OF THE [place] IN LAST 30 DAYS: No - HPI Notes: Patient has had cough with green sputum fever and shortness of breath for 3-4 days. Patient has had a similar episode in the past with pneumonia. Patient does have a history of a lobectomy for lung cancer. 66-year-old female with history of lung cancer is post left pneumonectomy presents with 4 days of fever cough and shortness of breath. Shortness of breath has been moderate. She has had some mild green sputum. She denies any new pain but reports anorexia and no solid p.o. intake for the last few days. This is confirmed by family. This has been similar in the past when she has had prior pneumonia. She has had a history of CHF and has a defibrillator but denies any defibrillator discharge. PCP Dr. Rivera - Related Data Allergies/Adverse Reactions: No Known Allergies Allergy (Verified 10/20/16 14:08) Past Medical History - Social History Smoking Status: Former Smoker Lives with: Family, Other - Patient's is by approximately 6 years. Family History: Reviewed & Not Pertinent Patient has suicidal ideation: No Patient has homicidal ideation: No - Past Medical History Cardiac Medical History: Reports: Hx Congestive Heart Failure Denies: Hx Coronary Artery Disease, Hx Heart Attack, Hx Hypertension Pulmonary Medical History: Reports: Hx COPD - LEFT LUNG REMOVED, Hx Pneumonia Denies: Hx Asthma, Hx Bronchitis Neurological Medical History: Denies: Hx Cerebrovascular Accident, Hx Seizures Renal/ Medical History: Denies: Hx Peritoneal Dialysis Malignancy Medical History: Reports: Hx Lung Cancer Musculoskeltal Medical History: Denies Hx Arthritis Psychiatric Medical History: Denies: Hx Depression Past Surgical History: Reports: Other - Left pneumonectomy 2002. Denies: Hx Hysterectomy - Immunizations Hx Diphtheria, Pertussis, Tetanus Vaccination: Yes Hx Pneumococcal Vaccination: 05/18/15 Review of Systems - Review of Systems -: Yes All other systems reviewed and negative Physical Exam - Vital signs Vitals: Temp Pulse Resp BP Pulse Ox 99.1 F 103 H 18 109/65 96 03/06/17 17:55 03/06/17 17:55 03/06/17 17:55 03/06/17 17:55 03/06/17 17:55 - Notes Notes: GENERAL: VS as per nursing doc. then cachectic female in mild respiratory distress HEAD: Atraumatic, normocephalic. EYES: Pupils equal round and reactive to light, extraocular movements intact, sclera anicteric, no conjunctival injection or discharge. ENT: Nares patent, oropharynx clear without exudates, slightly dry mucous membranes. NECK: Supple without lymphadenopathy. LUNGS: Tachypneic, breath sounds are decreased markedly on the left and on the right as well. HEART: Regular rate and rhythm without murmurs. ABDOMEN: Soft, non-tender, scaphoid BACK: No CVA tenderness. EXTREMITIES: Normal range of motion, no calf tenderness, no edema. NEUROLOGICAL: Cranial nerves grossly intact. Normal speech. Normal sensory and motor exams. No gross cerebellar abnormalities. PSYCH: Normal mood, normal affect. SKIN: Warm, dry, no petechiae Course - Re-evaluation Re-evalutation: 03/06/17 22:02 The patient remained hemodynamically stable. Oxygen saturation 96% on room air. X-ray shows what appears to be a right lower lobe infiltrate, urine as well did not look clean but a culture is pending as are blood cultures. Lactic acid 1.8, white blood cell count slightly elevated. As the patient has no reserve at this point she would benefit from admission. Levaquin has been initiated. - Vital Signs Vital signs: Temp Pulse Resp BP Pulse Ox 99.1 F 98 28 H 108/60 97 03/06/17 17:55 03/06/17 21:00 03/06/17 21:00 03/06/17 21:00 03/06/17 21:00 - Laboratory Result Diagrams: 03/06/17 18:25 03/06/17 18:16 Laboratory results interpreted by me: 03/06/17 03/06/17 03/06/17 18:16 18:25 18:45 WBC 11.6 H RBC 3.65 L Hgb 11.2 L Hct 32.7 L Seg Neutrophils % 80.9 H Lymphocytes % 6.7 L Absolute Neutrophils 9.4 H Sodium 131.1 L Chloride 95 L Glucose 186 H Albumin 3.4 L Urine Protein 100 H Urine Blood LARGE H Ur Leukocyte Esterase MODERATE H Urine Ascorbic Acid 20 H - Diagnostic Test Radiology reviewed: Image reviewed - Right lower infiltrate, Reports reviewed - Consults Dr. Cárdenas Time consulted: 22:09 - A call has been placed for admission. Spoke with patient with daughter and she is a full code at this point. Discharge - Discharge Clinical Impression: Pneumonia Qualifiers: Pneumonia type: due to unspecified organism Laterality: right Lung location: middle lobe of lung Qualified Code(s): J18.1 - Lobar pneumonia, unspecified organism Condition: Fair Disposition: ADMITTED OBSERVATION Admitting Provider: Hospitalist Unit Admitted: Telemetry
[2017-03-06 19:18] LABS: APPEARANCE,URINE CLOUDY; BILIRUBIN,URINE NEGATIVE (NEGATIVE); GLUCOSE, URINE NEGATIVE (NEGATIVE); KETONES,URINE NEGATIVE (NEGATIVE); LEUKOCYTE ESTERASE,URINE MODERATE (NEGATIVE); NITRITE,URINE NEGATIVE (NEGATIVE); PROTEIN,URINE 100 mg/dL (NEGATIVE); URINE SPECIFIC GRAVITY 1.023; UROBILINOGEN,URINE NEGATIVE mg/dL (<2.0)
--- NOTE | 2017-03-06 19:26 | RADIOLOGY REPORT (SQ) ---
EXAM DESCRIPTION: CHEST PA/LAT COMPLETED DATE/TIME: 03/06/2017 6:41 pm REASON FOR STUDY: cough fever COMPARISON: 10/20/2016 TECHNIQUE: Frontal and lateral radiographic views of the chest acquired. NUMBER OF VIEWS: Two view./ 3 films total. LIMITATIONS: None. FINDINGS: LUNGS AND PLEURA: New patchy infiltrate changes right lung base. Nearly complete clearing of previously noted patchy change of the right mid lung field. Linear marking again noted right upper lung field. Changes post left pneumonectomy. MEDIASTINUM AND HILAR STRUCTURES: Stable appearance post left pneumonectomy. HEART AND VASCULAR STRUCTURES: Stable heart, obscured by post pneumonectomy. BONES: No acute findings. HARDWARE: Transvenous pacer. OTHER: No other significant finding. IMPRESSION: Patchy infiltrate right lung base. TECHNICAL DOCUMENTATION: JOB ID: [id number] [employer]- All Rights Reserved
[2017-03-06] MEDS ORDERED: IPRATROPIUM/ALBUTEROL 0.5-2.5 MG/3 ML AMPUL NEB ONE (20:50)
[2017-03-06] MEDS ORDERED: LEVOFLOXACIN 750 MG/D5W RTU 150 ML IV ONE (21:58)
[2017-03-06] MEDS ORDERED: ACETAMINOPHEN 325 MG TABLET PO PRN (22:41)
[2017-03-06] MEDS ORDERED: GUAIFENESIN SYRP 200 MG/10 ML UDC PO PRN (22:42)
[2017-03-06] MEDS ORDERED: GABAPENTIN 300 MG CAPSULE PO ONE (23:00)
[2017-03-06] MEDS ORDERED: FLUTICASONE NASAL SPRAY 50 MCG/SPRY 120 SPRAY/16 GM NASL ONE ×2 (23:00→23:15)
[2017-03-06 23:26] LABS: ARTERIAL BLOOD BASE EXCESS 1.2 mmol/L; ARTERIAL BLOOD O2 SATURATION 94.1 % (94-98)
[2017-03-06] MEDS ORDERED: FLUTICASONE NASAL SPRAY 50 MCG/SPRY 120 SPRAY/16 GM ONE (23:27)
--- NOTE | 2017-03-07 00:19 | PDOC H&P ---
History of Present Illness Admission Date/PCP: 03/06/17 22:42 Patient complains of: Shortness of breath and productive cough History of Present Illness: CURT MONTERO is a 66 year old female with a past medical history of left- sided pneumonectomy for remote cancer, coronary artery disease, and hypertension who would been her usual state of health until 4 days ago noted to have rhinorrhea without sore throat a productive cough of green sputum subjective fever and chills and shortness of breath. She denies any recent antibiotics or infectious contacts in the emergency room she is found to have a right-sided infiltrate with fluid in the fissure, tachypnea, tachycardia and leukocytosis. She is started on empiric antibiotics and referred to the hospital for admission. Past Medical History Cardiac Medical History: Reports: Congestive Heart Failure Denies: Coronary Artery Disease, Myocardial Infarction, Hypertension Pulmonary Medical History: Reports: Chronic Obstructive Pulmonary Disease (COPD ) - LEFT LUNG REMOVED, Pneumonia Denies: Asthma, Bronchitis Neurological Medical History: Denies: Seizures Malignancy Medical History: Reports: Lung Cancer Musculoskeltal Medical History: Denies: Arthritis Psychiatric Medical History: Denies: Depression Hematology: Reports: Anemia Past Surgical History Past Surgical History: Reports: Internal Defibrillator, Pacemaker, Other - Left pneumonectomy 2002 Denies: Hysterectomy Social History Information Source: Patient Lives with: Family, Other - Patient's is by approximately 6 years. Smoking Status: Former Smoker Frequency of Alcohol Use: None Hx Recreational Drug Use: No Drugs: None Hx Prescription Drug Abuse: No - Advance Directive Resuscitation Status: Full Code Family History Family History: COPD Parental Family History Reviewed: Yes Children Family History Reviewed: Yes Sibling(s) Family History Reviewed.: Yes Medication/Allergy Home Medications: Aspirin [Aspirin 325 mg Tablet] 325 mg PO DAILY 10/21/16 Gabapentin [Neurontin 300 mg Capsule] 300 mg PO QHS 10/21/16 Acetaminophen [Tylenol 325 mg Tablet] 650 mg PO Q6HP PRN tablet 10/22/16 Amox Tr/Potassium Clavulanate [Augmentin 875-125 mg Tablet] 1 tab PO BID #20 tablet 10/22/16 Carvedilol [Coreg 3.125 mg Tablet] 3.125 mg PO Q12 #60 tablet 10/22/16 Lisinopril [Prinivil 5 mg Tablet] 2.5 mg PO Q12 #30 tablet 10/22/16 Allergies/Adverse Reactions: No Known Allergies Allergy (Verified 10/20/16 14:08) Review of Systems Constitutional: PRESENT: as per HPI, fatigue, fever(s) Eyes: ABSENT: visual disturbances Ears: ABSENT: hearing changes Cardiovascular: ABSENT: chest pain, dyspnea on exertion, edema, orthropnea, palpitations Respiratory: PRESENT: cough, dyspnea, sputum Gastrointestinal: ABSENT: abdominal pain, constipation, diarrhea, hematemesis, hematochezia, nausea, vomiting Genitourinary: ABSENT: dysuria, hematuria Musculoskeletal: ABSENT: joint swelling Integumentary: ABSENT: rash, wounds Neurological: ABSENT: abnormal gait, abnormal speech, confusion, dizziness, focal weakness, syncope Psychiatric: ABSENT: anxiety, depression, homidical ideation, suicidal ideation Endocrine: ABSENT: cold intolerance, heat intolerance, polydipsia, polyuria Hematologic/Lymphatic: ABSENT: easy bleeding, easy bruising Physical Exam Vital Signs: Temp Pulse Resp BP Pulse Ox 98.4 F 80 26 H 116/60 98 03/06/17 23:39 03/06/17 23:39 03/06/17 23:39 03/06/17 23:39 03/06/17 23:39 General appearance: PRESENT: cooperative, mild distress, thin. ABSENT: disheveled Head exam: PRESENT: atraumatic, normocephalic Eye exam: PRESENT: conjunctiva pink, EOMI, PERRLA. ABSENT: scleral icterus Ear exam: PRESENT: normal external ear exam Mouth exam: PRESENT: moist, tongue midline Neck exam: ABSENT: carotid bruit, JVD, lymphadenopathy, thyromegaly Respiratory exam: PRESENT: accessory muscle use, crackles, prolonged expiratory phas, retraction, rhonchi, tachypnea. ABSENT: symmetrical Cardiovascular exam: PRESENT: RRR. ABSENT: diastolic murmur, rubs, systolic murmur Pulses: PRESENT: normal dorsalis pedis pul Vascular exam: PRESENT: normal capillary refill GI/Abdominal exam: PRESENT: normal bowel sounds, soft. ABSENT: distended, guarding, mass, organolmegaly, rebound, tenderness Rectal exam: PRESENT: deferred Extremities exam: PRESENT: full ROM. ABSENT: calf tenderness, clubbing, pedal edema Neurological exam: PRESENT: alert, awake, oriented to person, oriented to place , oriented to time, oriented to situation, CN II-XII grossly intact. ABSENT: motor sensory deficit Psychiatric exam: PRESENT: appropriate affect, normal mood. ABSENT: homicidal ideation, suicidal ideation Skin exam: PRESENT: dry, intact, warm. ABSENT: cyanosis, rash Results Impressions: Chest X-Ray 03/06/17 18:08 IMPRESSION: Patchy infiltrate right lung base. Assessment & Plan - Diagnosis (1) Pneumonia Is this a current diagnosis for this admission?: YesPlan: Likely secondary to upper URI complicated by pneumonectomy. He is admitted with a pneumonia care set to a monitored bed with empiric antibiotics, Flonase, Claritin, flutter valve and incentive spirometry follow-up CBC and culture. (2) Acute respiratory failure Is this a current diagnosis for this admission?: YesPlan: Secondary to pneumonia complicated by pneumonectomy and history of COPD, supplemental oxygen incentive spirometry, flutter valve and pneumonia treatment. (3) Diastolic CHF Qualifiers: Congestive heart failure chronicity: chronic Qualified Code(s): I50.32 - Chronic diastolic (congestive) heart failure Is this a current diagnosis for this admission?: YesPlan: Currently compensated, avoid hypertension, tachycardia and hypoxia. Continue outpatient medication may require diuresis - Time Time Spent: 30 to 50 Minutes - Inpatient Certification Medical Necessity: Need Close Monitoring Due to Risk of Patient Decompensation
[2017-03-07] MEDS: HEPARIN SOD (PORCINE) 5,000 UNIT/ML 1 ML SYRINGE SUBCUT SCH ×3 (05:19→21:28)
--- NOTE | 2017-03-07 06:04 | EKG REPORT ---
SEVERITY:- ABNORMAL ECG - SINUS RHYTHM PROBABLE ANTEROSEPTAL INFARCT, AGE INDETERM : Confirmed by: Luci Ann MD 07-Mar-2017 06:03:34
[2017-03-07 07:03] LABS: ABSOLUTE LYMPHOCYTES (AUTO) 0.9 10^3/uL (0.5-4.7); ABSOLUTE NEUT (AUTO) 5.4 10^3/uL (1.7-8.2); BASOPHILS % (AUTO) 0.2 % (0-2); EOSINOPHILS % (AUTO) 0.6 % (0-6); HEMATOCRIT 28.3 % (36.0-47.0); HEMOGLOBIN 9.6 g/dL (12.0-15.5); HGB HCT DIFFERENCE 0.5; LYMPHOCYTES % (AUTO) 12.5 % (13-45); MEAN CORPUSCULAR VOLUME 88 fl (80-97); MONOCYTES % (AUTO) 13.5 % (3-13); RED BLOOD COUNT 3.21 10^6/uL (3.72-5.28); RED CELL DISTRIBUTION WIDTH 12.8 % (11.5-14.0); SEGMENTED NEUTROPHILS % (AUTO) 73.2 % (42-78); WHITE BLOOD COUNT 7.4 10^3/uL (4.0-10.5)
[2017-03-07 07:24] LABS: ANION GAP 10 (5-19); BLOOD UREA NITROGEN 8 mg/dL (7-20); CALCIUM 8.2 mg/dL (8.4-10.2); CARBON DIOXIDE 24 mmol/L (22-30); CHLORIDE 101 mmol/L (98-107); CREATININE RESULT 0.49 mg/dL (0.52-1.25); GLUCOSE 107 mg/dL (75-110); POTASSIUM 3.9 mmol/L (3.6-5.0); SODIUM 134.8 mmol/L (137-145)
[2017-03-07] MEDS: IPRATROPIUM/ALBUTEROL 0.5-2.5 MG/3 ML AMPUL NEB SCH ×3 (08:17→20:36)
[2017-03-07] MEDS: LORATADINE 10 MG TABLET PO SCH (09:13)
[2017-03-07] MEDS: ASPIRIN 325 MG TABLET PO SCH (09:13)
[2017-03-07] MEDS: FLUTICASONE NASAL SPRAY 50 MCG/SPRY 120 SPRAY/16 GM NASL SCH (09:15)
[2017-03-07] MEDS: LISINOPRIL 5 MG TABLET PO SCH ×2 (09:16→21:29)
[2017-03-07] MEDS: CARVEDILOL 3.125 MG TABLET PO SCH ×2 (09:16→21:29)
[2017-03-07] MEDS ORDERED: KETOROLAC TROMETHAMINE INJ/PF 30 MG/1 ML SDV IV ONE (14:45)
--- NOTE | 2017-03-07 17:27 | Progress Note ---
Provider Note Provider Note: Unable to reach listed contact on phone at 17:26. Unavailable and generic unidentifiable voicemail.
--- NOTE | 2017-03-07 17:32 | PDOC PROGRESS REPORT ---
Subjective Progress Note for:: 03/07/17 Subjective:: patient reports she is feeling better and would like to go home as soon as she can. Admits to left lower chest discomfort when coughing. Patient denies abdominal pain, nausea, vomiting, fevers, chills, diarrhea, constipation, headache, new onset weakness. Physical Exam Vital Signs: Temp Pulse Resp BP Pulse Ox 98.9 F 92 23 H 124/64 100 03/07/17 16:00 03/07/17 16:00 03/07/17 16:00 03/07/17 16:00 03/07/17 16:00 Intake & Output 03/06/17 03/07/17 03/08/17 06:59 06:59 06:59 Intake Total 720 Balance 720 Weight 39.9 kg Exam: General: Thin, older than stated age appearing, no acute respiratory distress HEENT: AT/NC, PERRL, EOMI, oropharynx is moist, pink, no scleral icterus, no conjunctival injection Neck: No JVD, trachea midline Chest: RLL rhonchi, left absent breath sounds CV: Regular rate and rhythm, normal S1 and S2, no murmur, rub, or gallop Abdomen: Soft, nontender to palpation, nondistended, active bowel sounds; no rebound, rigidity, or guarding Extremities: No cyanosis, clubbing or edema Neuro: Cranial nerves II through XII are grossly intact without focal deficits Psych: Normal mood and affect Results Laboratory Results: 03/07/17 06:46 03/07/17 06:46 03/07/17 03/07/17 06:46 06:46 WBC 7.4 RBC 3.21 L Hgb 9.6 L Hct 28.3 L MCV 88 MCH 30.0 MCHC 34.0 RDW 12.8 Plt Count 237 Seg Neutrophils % 73.2 Lymphocytes % 12.5 L Monocytes % 13.5 H Eosinophils % 0.6 Basophils % 0.2 Absolute Neutrophils 5.4 Absolute Lymphocytes 0.9 Absolute Monocytes 1.0 Absolute Eosinophils 0.0 Absolute Basophils 0.0 Sodium 134.8 L Potassium 3.9 Chloride 101 Carbon Dioxide 24 Anion Gap 10 BUN 8 Creatinine 0.49 L Est GFR ( Amer) > 60 Est GFR (Non-Af Amer) > 60 Glucose 107 Calcium 8.2 L Impressions: Chest X-Ray 03/06/17 18:08 IMPRESSION: Patchy infiltrate right lung base. Assessment & Plan - Diagnosis (1) Pneumonia Qualifiers: Laterality: right Lung location: lower lobe of lung Is this a current diagnosis for this admission?: YesPlan: Continue patient on scheduled nebulized treatments and Levaquin pending sputum culture. Patient reports she is feeling significantly improved (2) Acute respiratory failure Qualifiers: Respiratory failure complication: hypoxia Qualified Code(s): J96.01 - Acute respiratory failure with hypoxia Is this a current diagnosis for this admission?: YesPlan: Continue oxygen as needed (3) Chest wall pain Is this a current diagnosis for this admission?: YesPlan: Toradol as needed (4) Diastolic CHF Qualifiers: Congestive heart failure chronicity: chronic Qualified Code(s): I50.32 - Chronic diastolic (congestive) heart failure Is this a current diagnosis for this admission?: YesPlan: Currently euvolemic (5) Status post internal cardiac defibrillator procedure Is this a current diagnosis for this admission?: Yes (6) Malnutrition Is this a current diagnosis for this admission?: YesPlan: Patient with BMI of 16.6. Consult dietary. Add Ensure 3 times daily - Time Time Spent with patient: 25-34 minutes Medications reviewed and adjusted accordingly: Yes Anticipated discharge: Home Within: within 48 hours
[2017-03-07] MEDS ORDERED: LEVOFLOXACIN 750 MG/D5W RTU 750 MG/150 ML RTUPB IV SCH (22:00)
[2017-03-07] MEDS ORDERED: GABAPENTIN 300 MG CAPSULE PO SCH (22:00)
[2017-03-08] MEDS: HEPARIN SOD (PORCINE) 5,000 UNIT/ML 1 ML SYRINGE SUBCUT SCH ×2 (05:23→14:47)
[2017-03-08] MEDS ORDERED: KETOROLAC TROMETHAMINE INJ/PF 30 MG/1 ML SDV IV PRN (07:42)
[2017-03-08] MEDS ORDERED: TRAMADOL HCL 50 MG TABLET PO PRN (07:42)
[2017-03-08] MEDS: IPRATROPIUM/ALBUTEROL 0.5-2.5 MG/3 ML AMPUL NEB SCH ×2 (07:57→13:49)
[2017-03-08] MEDS: ASPIRIN 325 MG TABLET PO SCH (09:49)
[2017-03-08] MEDS: FLUTICASONE NASAL SPRAY 50 MCG/SPRY 120 SPRAY/16 GM NASL SCH (09:49)
[2017-03-08] MEDS: CARVEDILOL 3.125 MG TABLET PO SCH (09:50)
[2017-03-08] MEDS: LORATADINE 10 MG TABLET PO SCH (09:50)
[2017-03-08] MEDS: LISINOPRIL 5 MG TABLET PO SCH (09:50)
[2017-03-08] MEDS ORDERED: GUAIFENESIN 600 MG TABLET.SA PO SCH (10:00)
[2017-03-08] MEDS ORDERED: DIGOXIN 0.125 MG TABLET PO SCH (10:00)
[2017-03-08 13:02] VITALS: BP 92/47
--- NOTE | 2017-03-08 17:02 | PDOC DISCHARGE SUMMARY ---
General - Admit/Disc Date/PCP Admission Date/Primary Care Provider: 03/06/17 22:42 Discharge Date: 03/08/17 - Discharge Diagnosis (1) Pneumonia Is this a current diagnosis for this admission?: Yes (2) Acute respiratory failure Is this a current diagnosis for this admission?: Yes (3) Chest wall pain Is this a current diagnosis for this admission?: Yes (4) Diastolic CHF Is this a current diagnosis for this admission?: Yes (5) Status post internal cardiac defibrillator procedure Is this a current diagnosis for this admission?: Yes (6) Malnutrition Is this a current diagnosis for this admission?: Yes - Additional Information Resuscitation Status: Full Code Discharge Diet: Regular Discharge Activity: Activity As Tolerated Home Medications: Aspirin [Aspirin 81 mg Chewable Tablet] 81 mg PO DAILY 03/07/17 Digoxin [Lanoxin 0.125 mg Tablet] 0.125 mg PO DAILY 03/07/17 Gabapentin [Neurontin 300 mg Capsule] 300 mg PO QHS 03/07/17 Lisinopril [Prinivil 2.5 mg Tablet] 2.5 mg PO DAILY 03/07/17 Albuterol Sulfate [Ventolin Hfa] 1 - 2 puff IH Q4 PRN #1 hfa.aer.ad 03/08/17 Benzonatate [Tessalon Perles 100 mg Capsule] 100 mg PO Q8HP PRN #40 capsule Carvedilol [Coreg 3.125 mg Tablet] 3.125 mg PO Q12 #60 tablet 03/08/17 Fluticasone Propionate [Flonase Nasal [place] 50 Mcg/[place] 16 gm] 1 spray NASL DAILY #1 spray.pump 03/08/17 Guaifenesin [Mucinex Sr 600 mg Tablet.sa] 600 mg PO Q12 #20 tablet.sa 03/08/17 Lactose-Reduced Food [Ensure Muscle Health] 237 ml PO TID #90 liquid 03/08/17 Levofloxacin [Levaquin 750 mg Tablet] 750 mg PO DAILY #8 tab 03/08/17 Loratadine [Claritin 10 mg Tablet] 10 mg PO DAILY #30 tablet 03/08/17 Tramadol HCl [Ultram 50 mg Tablet] 50 mg PO Q6HP PRN #10 tablet 03/08/17 History of Present Illness History of Present Illness: CURT MONTERO is a 66 year old femalea past medical history of left-sided pneumonectomy for remote cancer, coronary artery disease, and hypertension who would been her usual state of health until 4 days ago noted to have rhinorrhea without sore throat a productive cough of green sputum subjective fever and chills and shortness of breath. She denies any recent antibiotics or infectious contacts in the emergency room she is found to have a right-sided infiltrate with fluid in the fissure, tachypnea, tachycardia and leukocytosis. She is started on empiric antibiotics and referred to the hospital for admission. Hospital Course Hospital Course: Patient continued to improve on Levaquin. Patient's white count improved. Her cough did become productive. She had some chest discomfort which is controlled with Toradol and tramadol. Patient did not require oxygen and on day of discharge was requesting to go home. Physical Exam Vital Signs: Temp Pulse Resp BP Pulse Ox 98.0 F 84 15 92/47 L 98 03/08/17 14:05 03/08/17 14:05 03/08/17 14:05 03/08/17 14:05 03/08/17 14:05 Intake & Output 03/07/17 03/08/17 03/09/17 06:59 06:59 06:59 Intake Total 1235 Balance 1235 Weight 39.9 kg 40.2 kg Exam: General: Thin, older than stated age appearing, no acute respiratory distress HEENT: AT/NC, PERRL, EOMI, oropharynx is moist, pink, no scleral icterus, no conjunctival injection Neck: No JVD, trachea midline Chest: Occasional RLL rhonchi, left absent breath sounds CV: Regular rate and rhythm, normal S1 and S2, no murmur, rub, or gallop Abdomen: Soft, nontender to palpation, nondistended, active bowel sounds; no rebound, rigidity, or guarding Extremities: No cyanosis, clubbing or edema Neuro: Cranial nerves II through XII are grossly intact without focal deficits Psych: Normal mood and affect Results Laboratory Results: 03/07/17 06:46 03/07/17 06:46 Impressions: Chest X-Ray 03/06/17 18:08 IMPRESSION: Patchy infiltrate right lung base. Qualifiers PATEINT BEING DISCHARGED WITH ANY OF THE FOLLOWING DIAGNOSIS?: No Plan Time Spent: Less than 30 Minutes
== END 2017-03-08 15:13 | disposition home or self-care (01) | DRG 193 ==
LOC: ER 17:51 → OBSVTOIN 22:42 → EH 22:42 → UNDOADMOB 22:50 → EH 22:50 → 4S 03-07 00:36
PROVIDERS: ADMIT Internal Medicine; ATTEND Internal Medicine
PROC: 3E0F73Z Introduction of Anti-inflammatory into Respiratory Tract, Via Natural or Artificial Opening (ICD-10-PCS; principal; 2017-03-07)
DX: J18.9 Pneumonia, unspecified organism (principal); J96.01 Acute respiratory failure with hypoxia; I50.32 Chronic diastolic (congestive) heart failure; E46 Unspecified protein-calorie malnutrition; Z68.1 Body mass index [BMI] 19.9 or less, adult; I11.0 Hypertensive heart disease with heart failure; I25.10 Atherosclerotic heart disease of native coronary artery without angina pectoris; J44.9 Chronic obstructive pulmonary disease, unspecified; D64.9 Anemia, unspecified; Z79.82 Long term (current) use of aspirin; Z79.899 Other long term (current) drug therapy; Z95.810 Presence of automatic (implantable) cardiac defibrillator; Z90.2 Acquired absence of lung [part of]; Z85.118 Personal history of other malignant neoplasm of bronchus and lung; Z87.891 Personal history of nicotine dependence
CPT/HCPCS: 36415; 36600; 71020; 80048; 80053; 81001; 82803; 83605; 85025; 87040; 87070; 87077; 87086; 87186; 87205; 88305; 88313; 88341; 88342; 93005; 93010; 94640; 94667; 94668; 94799; 96361; 96365; 96366; 99285; J1644; J1885; J1956; J3490; J7030; J7620

== ENCOUNTER → 2017-03-10 | Outpatient (CLI) | payer MEDICARE ==
--- NOTE | 2017-03-10 14:12 | RADIOLOGY REPORT (SQ) ---
EXAM DESCRIPTION: CT ABD/PELVIS COMBO COMPLETED DATE/TIME: 03/10/2017 10:30 am REASON FOR STUDY: GROSS HEMATURIA R31.0 GROSS HEMATURIA COMPARISON: CT of the chest dated 10/21/2016 TECHNIQUE: CT scan of the abdomen and pelvis performed with and without intravenous contrast, and wi thout oral contrast. Contrasted imaging performed helical scanning technique and dynamic intravenous contrast injection. Images reviewed with lung, soft tissue, and bone windows. Reconstructed coronal a nd sagittal MPR images reviewed. Delayed images for evaluation of the urinary system also acquired. A ll images stored on PACS. All CT scanners at this facility use dose modulation, iterative reconstruction, and/or weight based d osing when appropriate to reduce radiation dose to as low as reasonably achievable (ALARA). [facility]: Dose Right [facility]: CareDose [facility]: Dose Right [facility]: Teradose 4D [facility]: [employer] CONTRAST TYPE AND DOSE: contrast/concentration: Isovue 370.00 mg/ml; Total Contrast Delivered: 39.0 ml; Total Saline Delivered: 65.0 ml RENAL FUNCTION: Creatinine 0.4 RADIATION DOSE: Up-to-date CT equipment and radiation dose reduction techniques were employed. CTDIv ol: 8.9 - 8.9 mGy. DLP: 1273 mGy-cm. . LIMITATIONS: Lack of oral contrast and paucity of intra-abdominal fat. FINDINGS: NON-CONTRASTED IMAGING: No significant renal or bladder calcifications. No other significa nt organ calcifications. POST-CONTRASTED IMAGING: LOWER CHEST: Patchy infiltrates are present in the right lower lobe. There has been left pneumonecto my. LIVER: Normal size. No masses. No dilated ducts. SPLEEN: Normal size. No focal lesions. PANCREAS: No masses. No significant calcifications. No adjacent inflammation or peripancreatic fluid collections. Pancreatic duct not dilated. GALLBLADDER: Gallbladder is contracted. No stones are seen. ADRENAL GLANDS: No significant masses or asymmetry. RIGHT KIDNEY AND URETER: No solid masses. No significant calcifications. There is minimal pelvica liectasis. The ureter cannot be followed all the way to the bladder. However, no ureteral calculus is appreciated. LEFT KIDNEY AND URETER: No solid masses. No significant calcifications. No hydronephrosis or hydr oureter. AORTA AND VESSELS: No aneurysm. No dissection. Renal arteries, SMA, celiac without stenosis. RETROPERITONEUM: No retroperitoneal adenopathy, hemorrhage or masses. BOWEL AND PERITONEAL CAVITY: No masses or inflammatory changes. No free fluid or peritoneal masses. APPENDIX: Not identified. PELVIS: A normal appearing urinary bladder contains contrast on the delayed images. The uterus appea rs to be retroflexed. ABDOMINAL WALL: No masses. No hernias. BONES: Osteopenia. OTHER: No other significant finding. IMPRESSION: 1. Left pneumonectomy right lower lobe infiltrates. 2. There is some minimal pelvicaliectasis on the right. No ureteral stone is identified. 3. The gallbladder is contracted but no stones are present. 4. The appendix is not identified. TECHNICAL DOCUMENTATION: JOB ID: [id number] Quality ID # [id number]: Final reports with documentation of one or more dose reduction techniques (e.g., Au tomated exposure control, adjustment of the mA and/or kV according to patient size, use of iterative reconstruction technique) 2010 [employer]- All Rights Reserved
== END ==
LOC: RAD 09:52
PROVIDERS: ATTEND Urology
DX: R31.0 Gross hematuria (principal)
CPT/HCPCS: 74178; 82565

== ENCOUNTER 2017-03-26 10:04 | Day surgery (SDC) | payer MEDICARE ==
[2017-03-25 11:05] LABS: ABSOLUTE EOSINOPHILS # (AUTO) 0.1 10^3/uL (0.0-0.6); ABSOLUTE LYMPHOCYTES (AUTO) 1.3 10^3/uL (0.5-4.7); ABSOLUTE MONOCYTES (AUTO) 0.4 10^3/uL (0.1-1.4); ABSOLUTE NEUT (AUTO) 1.6 10^3/uL (1.7-8.2); BASOPHILS % (AUTO) 0.4 % (0-2); EOSINOPHILS % (AUTO) 2.2 % (0-6); HEMATOCRIT 35.3 % (36.0-47.0); HEMOGLOBIN 11.9 g/dL (12.0-15.5); HGB HCT DIFFERENCE 0.4; LYMPHOCYTES % (AUTO) 37.6 % (13-45); MEAN CORPUSCULAR HEMOGLOBIN 30.3 pg (27.0-33.4); MEAN CORPUSCULAR HGB CONC 33.6 g/dL (32.0-36.0); MEAN CORPUSCULAR VOLUME 90 fl (80-97); MONOCYTES % (AUTO) 11.7 % (3-13); RED BLOOD COUNT 3.92 10^6/uL (3.72-5.28); SEGMENTED NEUTROPHILS % (AUTO) 48.1 % (42-78); WHITE BLOOD COUNT 3.4 10^3/uL (4.0-10.5)
--- NOTE | 2017-03-25 11:13 | RADIOLOGY REPORT (SQ) ---
EXAM DESCRIPTION: CHEST PA/LATERAL COMPLETED DATE/TIME: 03/25/2017 10:53 am REASON FOR STUDY: PRE OP COMPARISON: Chest films 09/24/2010, 11/01/2015, 10/20/2016, 03/06/2017 CT chest 09/24/2010, 10/21/2016 EXAM PARAMETERS: NUMBER OF VIEWS: two views TECHNIQUE: Digital Frontal and Lateral radiographic views of the chest acquired. RADIATION DOSE: NA LIMITATIONS: none FINDINGS: LUNGS AND PLEURA: Persistent patchy airspace disease in the right lateral costophrenic sul cus. This is similar compared to 03/06/2017 and new compared to 10/21/2016. Airspace disease in the right mid lung seen on 10/20/2016 and 10/21/2016 has cleared. There is chronic pleural-parenchymal scarring at the right lung apex, stable compared to studies dati ng back to 2010. Baseline hyperinflation of the right lung related to left pneumonectomy. Left hemithorax is opacifie d with post pneumonectomy fluid. Mediastinal structures are shifted into the left chest. No right-sided pleural effusion or pneumothorax. MEDIASTINUM AND HILAR STRUCTURES: Shift of mediastinal structures into the left chest post left pneum onectomy. HEART AND VASCULAR STRUCTURES: Cardiac silhouette size difficult to visualize, shifted into the left chest post pneumonectomy. BONES: No acute findings. HARDWARE: Left-sided pacemaker unchanged OTHER: No other significant finding. IMPRESSION: Persistent airspace disease in the right lateral costophrenic sulcus. TECHNICAL DOCUMENTATION: JOB ID: [id number] [employer]- All Rights Reserved
[2017-03-25 11:29] LABS: ANION GAP 9 (5-19); BLOOD UREA NITROGEN 11 mg/dL (7-20); CARBON DIOXIDE 28 mmol/L (22-30); CHLORIDE 101 mmol/L (98-107); CREATININE RESULT 0.57 mg/dL (0.52-1.25); GLUCOSE 94 mg/dL (75-110); POTASSIUM 4.7 mmol/L (3.6-5.0); SODIUM 138.3 mmol/L (137-145)
--- NOTE | 2017-03-25 12:11 | EKG REPORT ---
SEVERITY:- BORDERLINE ECG - SINUS RHYTHM BORDERLINE T ABNORMALITIES, ANTERIOR LEADS : Confirmed by: Harpreet Whitley 25-Mar-2017 12:11:08
[~2017-03-26 10:04] MED LIST: CIPROFLOXACIN 400 MG/D5W RTU 400 MG/200 ML RTUPB IV PRN; LACTATED RINGERS 1000 ML IV PRN; LIDOCAINE 0.5% INJ-PF (5 MG/ML) 50 ML SDV SUBCUT PRN
[2017-03-26] MEDS ORDERED: LIDOCAINE 2% URO-JET 5 ML KIT ONE (11:05)
[2017-03-26] MEDS ORDERED: KETAMINE HCL INJ 500 MG/10 ML VIAL ONE (11:41)
[2017-03-26] MEDS ORDERED: FENTANYL CITRATE INJ/PF 100 MCG/2 ML AMPUL ONE ×2 (11:41→11:42)
[2017-03-26] MEDS ORDERED: MIDAZOLAM 2 MG/2 ML INJ ONE (11:42)
[2017-03-26] MEDS ORDERED: PROPOFOL INJ 200 MG/20 ML VIAL IV ONE ×2 (11:42→13:55)
[2017-03-26] MEDS ORDERED: CEFAZOLIN INJ 1 GM VIAL ONE (12:57)
--- NOTE | 2017-03-26 14:07 | Operative Report ---
Operative Report DATE OF SURGERY: 03/26/17 PREOPERATIVE DIAGNOSIS: Hematuria OPERATION: Cystoscopy, pyelograms, selective cytologies, Right ureteroscopy and ureteral biopsy x 3 SURGEON: APRIL LOW ANESTHESIA: Spinal TISSUE REMOVED OR ALTERED: Right mid ureter biopsy x 3 COMPLICATIONS: none ESTIMATED BLOOD LOSS: 0 INTRAOPERATIVE FINDINGS: 66-year-old female who has had intermittent gross hematuria for many months, this was evaluated by performing office cystoscopy which was negative, we had a cytology which is positive for high-grade disease, and a CT scan which showed some mild dilation of the right collecting system. In the OR we performed a cystoscopy selective cytology in the left side, pyelogram of the left side, pyelogram is normal on the left side, Polygram in the right side which showed a mid ureteral approximately 3 cm area with a filling defect, which ureteroscopy was performed and then biopsy 3 was taken from this area. We also did a selective cytology from the right ureter as well. Patient came to the operating room and placed in dorsal lithotomy position was prepped draped and padded in a sterile standard fashion. He is a 30 lens I cannulated the urethra into the bladder entire bladder was visualized there is no mucosal abnormalities in the bladder, there is no area in the bladder which was concerning for any kind of tumor. I used an open- ended ureteral catheter and then I shot a retrograde Polygram the left which is completely normal, I cannulated the left with a wire up into the renal pelvis, the open ended ureteral catheter with a separate open-ended ureteral catheter. Then using another open-ended ureteral catheter shot a pyelogram in the right noticed some mild right hydronephrosis, 3 cm filling defect in the mid ureter, I was able to get a wire into the renal pelvis, and then used a semirigid ureteroscope with the guidance of a 025 Glidewire and I was able to get to the mid ureter, identified the tumor, the wire was able to get past the tumor itself but I was unable to get the ureteroscope past the tumor, cytology was taken from this area, with a previous voided cytology that was high-grade that was likely originating from this area as endoscopically the tumor looked like a high-grade tumor. I then used the Parana ureteroscopic biopsy forceps and I took a biopsy 3 from the mid ureter area and sent for pathological analysis. I also took a picture of this area endoscopically. At this point I decided not to place ureteral stent, she has had CT scan in the past which did not show any evidence of disease outside the ureter, she has had a chest x-ray which did not show any disease, she will need a CT scan of the chest and I feel that the next appropriate move for her would be to undergo a right robotic nephroureterectomy with a lymph node dissection. I have discussed this with the family they will decide if they want to go to [facility] versus [place] to a tertiary center to get this done. PROCEDURE: 66-year-old female who has had intermittent gross hematuria for many months, this was evaluated by performing office cystoscopy which was negative, we had a cytology which is positive for high-grade disease, and a CT scan which showed some mild dilation of the right collecting system. In the OR we performed a cystoscopy selective cytology in the left side, pyelogram of the left side, pyelogram is normal on the left side, Polygram in the right side which showed a mid ureteral approximately 3 cm area with a filling defect, which ureteroscopy was performed and then biopsy 3 was taken from this area. We also did a selective cytology from the right ureter as well. Patient came to the operating room and placed in dorsal lithotomy position was prepped draped and padded in a sterile standard fashion. He is a 30 lens I cannulated the urethra into the bladder entire bladder was visualized there is no mucosal abnormalities in the bladder, there is no area in the bladder which was concerning for any kind of tumor. I used an open-ended ureteral catheter and then I shot a retrograde Polygram the left which is completely normal, I cannulated the left with a wire up into the renal pelvis, the open ended ureteral catheter with a separate open-ended ureteral catheter. Then using another open-ended ureteral catheter shot a pyelogram in the right noticed some mild right hydronephrosis, 3 cm filling defect in the mid ureter, I was able to get a wire into the renal pelvis, and then used a semirigid ureteroscope with the guidance of a 025 Glidewire and I was able to get to the mid ureter, identified the tumor, the wire was able to get past the tumor itself but I was unable to get the ureteroscope past the tumor, cytology was taken from this area, with a previous voided cytology that was high-grade that was likely originating from this area as endoscopically the tumor looked like a high-grade tumor. I then used the Parana ureteroscopic biopsy forceps and I took a biopsy 3 from the mid ureter area and sent for pathological analysis. I also took a picture of this area endoscopically. At this point I decided not to place ureteral stent, she has had CT scan in the past which did not show any evidence of disease outside the ureter, she has had a chest x-ray which did not show any disease, she will need a CT scan of the chest and I feel that the next appropriate move for her would be to undergo a right robotic nephroureterectomy with a lymph node dissection. I have discussed this with the family they will decide if they want to go to [facility] versus [place] to a tertiary center to get this done.
[2017-03-26] MEDS ORDERED: ONDANSETRON HCL INJ/PF 4 MG/2 ML SDV ONE (14:13)
[2017-03-26] MEDS ORDERED: PHENYLEPHRINE HCL INJ/PF 10 MG/1 ML SDV ONE (14:13)
[2017-03-26] MEDS ORDERED: LIDOCAINE 2% INJ-PF (20 MG/ML) 10 ML AMPUL ONE (14:13)
[2017-03-26] MEDS ORDERED: HYDROCODONE/ACETAMINOPHEN 5-325 MG TABLET PO PRN (14:26)
[2017-03-26] MEDS ORDERED: ONDANSETRON HCL INJ/PF 4 MG/2 ML SDV IV PRN (14:27)
--- NOTE | 2017-03-26 16:59 | RADIOLOGY REPORT (SQ) ---
EXAM DESCRIPTION: PYELOGRAM RETROGRADE COMPLETED DATE/TIME: 03/26/2017 2:03 pm REASON FOR STUDY: BILATERAL PYELOGRAM WITH BIOPSY IN CYSTO R31.0 GROSS HEMATURIA COMPARISON: CT abdomen pelvis 03/10/2017, 02/06/2017 FLUOROSCOPY TIME: 1 minutes 27 seconds 6 digital radiographic images saved to PACS. TECHNIQUE: Intra-operative images acquired during surgical procedure to evaluate progress. NUMBER OF IMAGES: 6 digital radiographic images saved to pac's LIMITATIONS: None. FINDINGS: Retrograde study performed. Left-sided retrograde injection demonstrates no filling defec ts worrisome for stones. No hydronephrosis. On the right side, at about the level of the right L5 transverse process, a filling defect is present which could represent an air bubble or ureteral stone. There is adjacent ureteral spasm or mild str icture, and proximal right hydronephrosis and hydroureter. Please see the operative report for further details. IMPRESSION: Intra procedural imaging and fluoro COMMENT: Quality ID [id number]: Final reports for procedures using fluoroscopy that document radiation exp osure indices, or exposure time and number of fluorographic images (if radiation exposure indices are not available) Please consult full operative report of the attending physician for description of the procedure. TECHNICAL DOCUMENTATION: JOB ID: [id number] [employer]- All Rights Reserved
[2017-03-26 17:47] VITALS: BP 145/65
== END 2017-03-26 17:45 | disposition home or self-care (01) ==
LOC: OROUT 10:04
PROVIDERS: ATTEND Urology
PROC: 0TB68ZX Excision of Right Ureter, Via Natural or Artificial Opening Endoscopic, Diagnostic (ICD-10-PCS; principal; 2017-03-26 12:00)
DX: D09.19 Carcinoma in situ of other urinary organs (principal); R31.0 Gross hematuria; N13.30 Unspecified hydronephrosis; J44.9 Chronic obstructive pulmonary disease, unspecified; M19.90 Unspecified osteoarthritis, unspecified site; Z95.810 Presence of automatic (implantable) cardiac defibrillator; Z85.118 Personal history of other malignant neoplasm of bronchus and lung; Z87.891 Personal history of nicotine dependence; Z86.11 Personal history of tuberculosis; Z79.82 Long term (current) use of aspirin; Z79.899 Other long term (current) drug therapy
CPT/HCPCS: 93005; 36415; 85025; 80048; 88162; 88305 ×2; 71020; 74420; 93010; 52354; C1769; C1758; J2250; J0690; J2370; J2405; J2704; J3490; 910; J3010

== ENCOUNTER 2017-08-18 11:54 | Emergency (ER) | payer MEDICARE ==
[2017-08-18 13:24] LABS: ABSOLUTE BASOPHILS # (AUTO) 0.1 10^3/uL (0.0-0.2); ABSOLUTE EOSINOPHILS # (AUTO) 0.4 10^3/uL (0.0-0.6); ABSOLUTE LYMPHOCYTES (AUTO) 1.6 10^3/uL (0.5-4.7); ABSOLUTE MONOCYTES (AUTO) 0.8 10^3/uL (0.1-1.4); ABSOLUTE NEUT (AUTO) 7.2 10^3/uL (1.7-8.2); BASOPHILS % (AUTO) 0.5 % (0-2); EOSINOPHILS % (AUTO) 3.8 % (0-6); HEMATOCRIT 34.8 % (36.0-47.0); HEMOGLOBIN 11.7 g/dL (12.0-15.5); LYMPHOCYTES % (AUTO) 15.5 % (13-45); MEAN CORPUSCULAR HEMOGLOBIN 29.9 pg (27.0-33.4); MEAN CORPUSCULAR HGB CONC 33.6 g/dL (32.0-36.0); MEAN CORPUSCULAR VOLUME 89 fl (80-97); MONOCYTES % (AUTO) 7.9 % (3-13); PLATELET COUNT 293 10^3/uL (150-450); RED BLOOD COUNT 3.91 10^6/uL (3.72-5.28); RED CELL DISTRIBUTION WIDTH 13.6 % (11.5-14.0); SEGMENTED NEUTROPHILS % (AUTO) 72.3 % (42-78); TOTAL CELLS COUNTED % (AUTO) 100 %
[2017-08-18 13:30] LABS: INTERNATIONAL RATION (INR) 1.05; PROTHROMBIN TIME 14.4 SEC (11.4-15.4)
[2017-08-18 13:44] LABS: ALANINE AMINOTRANSFERASE 29 U/L (9-52); ALBUMIN 3.7 g/dL (3.5-5.0); ALKALINE PHOSPHATASE 88 U/L (38-126); ANION GAP 9 (5-19); ASPARTATE AMINO TRANSFERASE 30 U/L (14-36); BILIRUBIN,DIRECT 0.2 mg/dL (0.0-0.4); BILIRUBIN,TOTAL 0.6 mg/dL (0.2-1.3); BLOOD UREA NITROGEN 17 mg/dL (7-20); CALCIUM 9.3 mg/dL (8.4-10.2); CARBON DIOXIDE 27 mmol/L (22-30); CHLORIDE 102 mmol/L (98-107); GLUCOSE 114 mg/dL (75-110); POTASSIUM 4.7 mmol/L (3.6-5.0); SODIUM 137.5 mmol/L (137-145); TOTAL PROTEIN 6.7 g/dL (6.3-8.2)
--- NOTE | 2017-08-18 15:03 | CONSULTATION REPORT E ---
Consultation Report NAME: CURT MONTERO : 1950 AGE: 66Y DATE: 08/18/2017 TO: NARA OHARA M.D. FROM: JORJE GRAY M.D. Requesting Physician CHIEF COMPLAINT: Abdominal wall mass, foul smelling. HISTORY OF PRESENTING ILLNESS: The patient is a 66-year-old Pashto female who presents to the emergency department by [facility] complaining of abdominal pain, drainage from an abdominal wall mass, and foul smell. Patient does have a language barrier. She is not accompanied by anybody. Apparently she is 2-1/2 weeks status post robotic nephrectomy at [facility]. Postoperatively the patient recovered with her daughter in [place]. She recently returned to [place] where she resides. Because of poor appetite, failure to thrive, and bloody purulent discharge from an abdominal wall mass she is seen in the emergency department for further evaluation. PAST MEDICAL HISTORY: Significant for COPD, tuberculosis, smoking disorder, chicken pox, cardiomyopathy. PAST SURGICAL HISTORY: Significant for left pneumonectomy in 2001 for pulmonary malignancy; defibrillator placement 2014 in [place], dual chamber; status post robotic nephrectomy July of 2016 at [facility] for kidney malignancy. HOSPITALIZATION: As per HPI. FAMILY HISTORY: Significant for heart disease. SOCIAL HISTORY: Former smoker; patient is . MEDICATIONS: Multiple. See admission documentation. ALLERGIES: None known. REVIEW OF SYSTEMS: As per HPI. CONSTITUTIONAL: Patient has had poor stamina and has had weight loss since her recent nephrectomy. CARDIAC: Patient denies. GASTROINTESTINAL: Patient has had no nausea or vomiting or diarrhea or constipation. PHYSICAL EXAMINATION: VITAL SIGNS: Temperature 98.4, heart rate 91, blood pressure 124/67, weight 33 kg. GENERAL: The patient is a cachectic, Pashto female in no acute distress. EYES: Without icterus. MUSCULOSKELETAL: Obvious loss of body mass due to cachexia. LUNGS: No breath sounds on the left side; heart sounds heard in the left chest. Lungs sounds distant on the right side. Multiple scars on chest and abdomen consistent with remote and recent surgery. ABDOMEN: Scaphoid, not distended. Left lower quadrant has an operative incision with mass of purulent draining fleshy viable tissue emanating from the incision. We removed a foul smell gauze, washed up the tissue which exposed a heaped up granulating mass of viable soft tissue approximately 4 cm in diameter. The tissue appears to be suspended by a small stalk emanating through the abdominal wall defect consistent with a laparoscopy site. The abdomen is otherwise completely benign. EXTREMITY: The lower extremities are without gross deformity. Vascular exam reveals palpable pulses in the radial and femoral arteries. LABORATORY PROFILE: White blood cell count of 10,000; hemoglobin of 11.7. Electrolytes within normal limits. IMPRESSION: 1. Postoperative abdominal wall mass at site of recent laparoscopy most consistent with herniating omentum; status post robotically assisted nephrectomy at [facility]. 2. Multiple chronic comorbidities including left pneumonectomy for lung carcinoma; cardiomyopathy; dual chamber pacemaker. RECOMMENDATIONS: 1. The patient is not in an emergency situation . The patient does not have a septic picture. I believe the principle problem is evisceration of portion of omentum through the abdominal wall at the laparoscopy port site which is now chronic. 2. We will explore transferring the patient back to [place]. However, if that cannot be facilitated, then care may need to be provided here at [place]. 3. Discussed the above with the patient's daughter here in [place]. They would like to follow-up with [facility] which I think is very reasonable considering the patient's multiple comorbidities including chronic respiratory insufficiency, status post pneumonectomy, and presence of cardiac pacemaker defibrillator; although the operative procedure may not be very complex, the patient could deteriorate requiring advanced ICU support. DICTATING PHYSICIAN: NARA OHARA M.D. [id number] PHY#: [id number] ID: [id number] JOB#: [id number] ACCT: [id number] cc:NARA OHARA M.D. > MTDD
--- NOTE | 2017-08-18 15:55 | ER Document Report ---
ED General - General Chief Complaint: Post Surgical Bleeding Stated Complaint: SURGICAL COMPLICATIONS Time Seen by Provider: 08/18/17 12:38 Mode of Arrival: Ambulatory Information source: Patient Notes: This is a 66-year-old female status post recent robotic assisted left nephrectomy for localized cancer (at [facility] on August 01). The patient presents to the emergency room with bleeding around the wound site. The patient does note that she has been eating and drinking okay. She did have a period of constipation after the surgery. She denies any fever, chills or abdominal pain. TRAVEL OUTSIDE OF THE [place] IN LAST 30 DAYS: No - HPI Onset: Last week Onset/Duration: Gradual Quality of pain: No pain Severity: None Pain Level: Denies Associated symptoms: denies: Chest pain, Fever, Shortness of breath Exacerbated by: Denies Relieved by: Denies Similar symptoms previously: No Recently seen / treated by doctor: No - Related Data Allergies/Adverse Reactions: No Known Allergies Allergy (Verified 08/18/17 11:55) Past Medical History - General Information source: Patient - Social History Smoking Status: Never Smoker Cigarette use (# per day): No Chew tobacco use (# tins/day): No Frequency of alcohol use: None Drug Abuse: None Lives with: Spouse/Significant other Family History: COPD Patient has suicidal ideation: No Patient has homicidal ideation: No - Past Medical History Cardiac Medical History: Reports: Hx Congestive Heart Failure Denies: Hx Coronary Artery Disease, Hx Heart Attack, Hx Hypertension Pulmonary Medical History: Reports: Hx COPD - LEFT LUNG REMOVED, Hx Pneumonia Denies: Hx Asthma, Hx Bronchitis Neurological Medical History: Denies: Hx Cerebrovascular Accident, Hx Seizures Renal/ Medical History: Denies: Hx Peritoneal Dialysis Malignancy Medical History: Reports: Hx Lung Cancer Musculoskeltal Medical History: Denies Hx Arthritis Psychiatric Medical History: Denies: Hx Depression Past Surgical History: Reports: Hx Cardiac Surgery - defib, Hx Internal Defibrillator, Hx Pacemaker, Hx Urinary Tract Surgery - LEFT KIDNEY and URETER REMOVED, Other - Left pneumonectomy 2002. Denies: Hx Hysterectomy - Immunizations Hx Diphtheria, Pertussis, Tetanus Vaccination: Yes Hx Pneumococcal Vaccination: 05/18/15 Review of Systems - Review of Systems Constitutional: denies: Chills, Fever EENT: No symptoms reported Cardiovascular: No symptoms reported Respiratory: No symptoms reported Gastrointestinal: See HPI Genitourinary: No symptoms reported Female Genitourinary: No symptoms reported Musculoskeletal: See HPI Skin: No symptoms reported Hematologic/Lymphatic: No symptoms reported Neurological/Psychological: No symptoms reported Physical Exam - Vital signs Vitals: Temp Pulse Resp BP Pulse Ox 98.4 F 91 18 124/67 100 08/18/17 12:02 08/18/17 12:02 08/18/17 12:02 08/18/17 12:02 08/18/17 12:02 Notes: Physical exam: GENERAL: 66-year-old female, alert and oriented 3, no acute distress HEAD: Atraumatic, normocephalic. EYES: Pupils equal round and reactive to light, extraocular movements intact, sclera anicteric, conjunctiva are normal. ENT: TMs normal, nares patent, oropharynx clear without exudates. Moist mucous membranes. NECK: Normal range of motion, supple without obvious mass or JVD. LUNGS: Breath sounds clear to auscultation bilaterally and equal. No wheezes rales or rhonchi. HEART: Regular rate and rhythm without murmurs, rubs or gallops. ABDOMEN: Soft, left lower quadrant surgical site has old foul-smelling gauze stuck to eviscerated omentum. Does not appear to have any eviscerated bowel. Bowel sounds are soft and there is no evidence of obstruction. The abdomen is nontender. The surrounding abdominal wall skin is without erythema, discharge. EXTREMITIES: Normal range of motion, no pitting or edema. No clubbing or cyanosis. NEUROLOGICAL: Cranial nerves II through XII grossly intact. Normal speech, moving all extremities. PSYCH: Normal mood, normal affect. SKIN: Warm, Dry, normal turgor, no rashes or lesions noted. Course - Re-evaluation Re-evalutation: 08/18/17 15:50 I discussed the case with Dr. Armas and we examined the wound site together. It appears that this eviscerated omentum is not acute but probably there for the past week or 2. The patient has no evidence of bowel obstruction or sepsis. The white count is 10. She is afebrile. I have discussed the case with Dr. Dow who is covering for Dr. Singleton at [place] for urology. He recommended transferring the patient ER to ER for evaluation. I discussed the case with Dr. Gupta who is in the ER at [place] and has agreed to accept the patient. I have discussed the plan with the patient's daughter as well as the patient and the patient is absolutely refusing transfer and wants to go to the clinic tomorrow. She does have a problem with anxiety and does not want to be transferred tonight. The patient will be discharged. Clinically speaking, given that there is no evidence of acute obstruction or sepsis, this choice is probably okay. However, I have discussed with the daughter that ultimately there is in communication with the abdomen and she is at risk of sepsis and this will need to be fixed surgically. They understand these risks but are adamant about discharge tonight with follow-up tomorrow. 08/18/17 18:56 - Vital Signs Vital signs: Temp Pulse Resp BP Pulse Ox 98.1 F 85 16 122/50 L 96 08/18/17 16:25 08/18/17 16:25 08/18/17 16:25 08/18/17 16:25 08/18/17 16:25 - Laboratory Result Diagrams: 08/18/17 13:14 08/18/17 13:14 Laboratory results interpreted by me: 08/18/17 08/18/17 13:14 13:14 Hgb 11.7 L Hct 34.8 L Glucose 114 H Critical Care Note - Critical Care Note Total time excluding time spent on procedures (mins): 60 Discharge - Discharge Clinical Impression: Eviscerated omentum Condition: Stable Disposition: HOME, SELF-CARE Additional Instructions: As we discussed, I had spoken to Dr. Dow who is covering for Dr. Singleton and he had requested you being transferred ER to ER. I had made arrangements for transfer to the ER so that urology could evaluate you. Given that you do not want to be transferred this evening: I strongly suggest you either go to [place] in the morning or call the office first thing in the morning. In the meantime, keep the wound covered with Xeroform (the yellow medicated gauze), and cover this with regular white gauze. If you develop any fever, abdominal pain, vomiting, return to the emergency room at once per Referrals: INEZ ADAN, DO [Primary Care Provider] - Follow up as needed
[2017-08-18 17:00] VITALS: BP 122/50
== END 2017-08-18 16:32 | disposition home or self-care (01) ==
LOC: ER 11:54
DX: T81.31XA Disruption of external operation (surgical) wound, not elsewhere classified, initial encounter (principal); Y83.6 Removal of other organ (partial) (total) as the cause of abnormal reaction of the patient, or of later complication, without mention of misadventure at the time of the procedure; Z90.5 Acquired absence of kidney; Z85.528 Personal history of other malignant neoplasm of kidney; J44.9 Chronic obstructive pulmonary disease, unspecified; Z90.2 Acquired absence of lung [part of]; Z95.810 Presence of automatic (implantable) cardiac defibrillator
CPT/HCPCS: 36415; 80053; 85025; 85610; 99285

== ENCOUNTER → 2018-02-03 | Outpatient (CLI) | payer MEDICARE ==
--- NOTE | 2018-02-03 14:38 | RADIOLOGY REPORT (SQ) ---
EXAM DESCRIPTION: CT ABD/PELVIS WITH IV ORAL COMPLETED DATE/TIME: 02/03/2018 1:12 pm REASON FOR STUDY: BLADDER CA (C67.9) C67.9 MALIGNANT NEOPLASM OF BLADDER, UNSPECIFIED COMPARISON: CT abdomen pelvis 02/06/2016, 01/02/2015, 09/09/2014 CT angio chest 09/24/2010 TECHNIQUE: CT scan of the abdomen and pelvis performed using helical scanning technique with dynamic intravenous contrast injection. Patient drank oral contrast. Images reviewed with lung, soft tissue , and bone windows. Reconstructed coronal and sagittal MPR images reviewed. Delayed images for evalua tion of the urinary system also acquired. All images stored on PACS. All CT scanners at this facility use dose modulation, iterative reconstruction, and/or weight based d osing when appropriate to reduce radiation dose to as low as reasonably achievable (ALARA). [facility]: Dose Right [facility]: CareDose [facility]: Dose Right [facility]: Teradose 4D [facility]: [employer] [place] CONTRAST TYPE AND DOSE: contrast/concentration: Isovue 370.00 mg/ml; Total Contrast Delivered: 37.0 ml; Total Saline Delivered: 65.0 ml RENAL FUNCTION: Creatinine 0.8 RADIATION DOSE: CT Rad equipment meets quality standard of care and radiation dose reduction techniq ues were employed. CTDIvol: 2.2 - 2.6 mGy. DLP: 335 mGy-cm.. LIMITATIONS: None. FINDINGS: LOWER CHEST: Old left pneumonectomy. Stable scarring right lung base. No pleural effusio ns. LIVER: Normal size. No masses. No dilated ducts. SPLEEN: Normal size. No focal lesions. PANCREAS: No masses. No significant calcifications. No adjacent inflammation or peripancreatic fluid collections. Pancreatic duct not dilated. GALLBLADDER: No identified stones by CT criteria. No inflammatory changes to suggest cholecystitis. ADRENAL GLANDS: Right adrenal gland surgically absent. 2 cm nodule left adrenal gland stable compare d to CT angio chest from 2010 RIGHT KIDNEY AND URETER: Post right nephro ureterectomy LEFT KIDNEY AND URETER: No solid masses. No significant calcifications. No hydronephrosis or hydr oureter. AORTA AND VESSELS: No aneurysm. No dissection. Renal arteries, SMA, celiac without stenosis. RETROPERITONEUM: No retroperitoneal adenopathy, hemorrhage or masses. BOWEL AND PERITONEAL CAVITY: Patient drank oral contrast. No CT evidence of bowel obstruction. No m asses or inflammatory changes. No free fluid or peritoneal masses. APPENDIX: Not identified. No right lower quadrant inflammatory change. . PELVIS: Normal size female pelvic organs. No gross urinary bladder masses by CT. No pelvic adenopat hy. ABDOMINAL WALL: No masses. No hernias. BONES: No significant or acute findings. OTHER: No other significant finding. IMPRESSION: Post right nephro ureterectomy No pelvic adenopathy. No gross bladder mucosal masses Unremarkable left kidney and left ureter. TECHNICAL DOCUMENTATION: JOB ID: [id number] Quality ID # [id number]: Final reports with documentation of one or more dose reduction techniques (e.g., Au tomated exposure control, adjustment of the mA and/or kV according to patient size, use of iterative reconstruction technique) 2010 [employer]- All Rights Reserved Reading location - IP/workstation name: [email or web address]
== END ==
LOC: RAD 12:34
PROVIDERS: ATTEND Internal Medicine Medical Oncology
DX: C67.9 Malignant neoplasm of bladder, unspecified (principal)
CPT/HCPCS: 74177; 82565

== ENCOUNTER → 2018-03-03 | Outpatient (CLI) | payer MEDICARE ==
[2018-03-03 11:42] LABS: ABSOLUTE EOSINOPHILS # (AUTO) 0.2 10^3/uL (0.0-0.6); ABSOLUTE LYMPHOCYTES (AUTO) 2.3 10^3/uL (0.5-4.7); ABSOLUTE MONOCYTES (AUTO) 0.6 10^3/uL (0.1-1.4); ABSOLUTE NEUT (AUTO) 5.5 10^3/uL (1.7-8.2); BASOPHILS % (AUTO) 0.4 % (0-2); EOSINOPHILS % (AUTO) 2.3 % (0-6); HEMATOCRIT 37.1 % (36.0-47.0); HEMOGLOBIN 12.5 g/dL (12.0-15.5); LYMPHOCYTES % (AUTO) 26.1 % (13-45); MEAN CORPUSCULAR HEMOGLOBIN 29.9 pg (27.0-33.4); MEAN CORPUSCULAR HGB CONC 33.7 g/dL (32.0-36.0); MEAN CORPUSCULAR VOLUME 89 fl (80-97); MONOCYTES % (AUTO) 6.9 % (3-13); PLATELET COUNT 316 10^3/uL (150-450); RED BLOOD COUNT 4.18 10^6/uL (3.72-5.28); RED CELL DISTRIBUTION WIDTH 13.1 % (11.5-14.0); SEGMENTED NEUTROPHILS % (AUTO) 64.3 % (42-78); TOTAL CELLS COUNTED % (AUTO) 100 %; WHITE BLOOD COUNT 8.6 10^3/uL (4.0-10.5)
[2018-03-03 12:09] LABS: ALANINE AMINOTRANSFERASE 33 U/L (9-52); ALBUMIN 4.2 g/dL (3.5-5.0); ALKALINE PHOSPHATASE 89 U/L (38-126); ANION GAP 12 (5-19); ASPARTATE AMINO TRANSFERASE 31 U/L (14-36); BILIRUBIN,DIRECT 0.2 mg/dL (0.0-0.4); BILIRUBIN,TOTAL 0.5 mg/dL (0.2-1.3); BLOOD UREA NITROGEN 15 mg/dL (7-20); CALCIUM 9.4 mg/dL (8.4-10.2); CARBON DIOXIDE 28 mmol/L (22-30); CHLORIDE 99 mmol/L (98-107); CHOLESTEROL 171.48 mg/dL (0-200); GLUCOSE 109 mg/dL (75-110); POTASSIUM 4.9 mmol/L (3.6-5.0); SODIUM 139.2 mmol/L (137-145); TOTAL PROTEIN 7.8 g/dL (6.3-8.2); TRIGLYCERIDES 109 mg/dL (<150)
[2018-03-03 12:21] LABS: DIRECT LDL 94 mg/dL (<100)
--- NOTE | 2018-03-03 14:08 | WOMENS IMAGING REPORT ---
EXAM DESCRIPTION: BONE DENSITY HIP/SPINE COMPLETED DATE/TIME: 03/03/2018 2:00 pm REASON FOR STUDY: OSTEOPOROSIS Z12.31 ENCNTR SCREEN MAMMOGRAM FOR MALIGNANT NEOPLASM OF EDD M81.0 AGE-RELATED OSTEOPOROSIS W/O CURRENT PATHOLOGICAL FRAC I50.9 HEART FAILURE, UNSPECIFIED COMPARISON: None. TECHNIQUE: Dual-Energy X-ray Absorptiometry (DEXA) of the AP Spine and Hip. LIMITATIONS: None. FINDINGS: LUMBAR SPINE: The bone mineral density (BMD) measured from L1-L4 in the AP projection correlates with a T-score of -4.6, which is osteoporosis as defined by the World Health Organization. HIP: The bone mineral density (BMD) measured in the left hip correlates with a T-score of -4.2, which is o steoporosis as defined by the World Health Organization. IMPRESSION: 1. LUMBAR SPINE: Osteoporosis 2. HIP: Osteoporosis COMMENT: The World Health Organization defines low BMD as follows: T-score: Normal: Greater than -1.0 Osteopenia: Between -1.0 and -2.5 Osteoporosis: Less than -2.5 without fractures Established osteoporosis: Less than -2.5 with fractures In general, you may wish to consider: Diagnosis Treatment Follow-up DEXA Normal BMD Prevention 2-3 years Osteopenia Prevention/Therapy 1-2 years Osteoporosis Therapy Yearly TECHNICAL DOCUMENTATION: JOB ID: [id number] [employer]- All Rights Reserved Reading location - IP/workstation name: [email or web address]
--- NOTE | 2018-03-03 16:10 | WOMENS IMAGING REPORT ---
EXAM DESCRIPTION: BILAT SCREENING MAMMO W/CAD COMPLETED DATE/TIME: 03/03/2018 2:00 pm REASON FOR STUDY: SCREENING MAMMO Z12.31 ENCNTR SCREEN MAMMOGRAM FOR MALIGNANT NEOPLASM OF EDD M81. 0 AGE-RELATED OSTEOPOROSIS W/O CURRENT PATHOLOGICAL FRAC I50.9 HEART FAILURE, UNSPECIFIED COMPARISON: No previous, baseline TECHNIQUE: Standard craniocaudal and mediolateral oblique views of each breast recorded using digita l acquisition. LIMITATIONS: None. FINDINGS: No masses, calcifications or architectural distortion. No areas of suspicion. Read with the assistance of CAD. .[facility] - R2 Cenova Version 1.3 .[facility] - R2 Cenova Version 1.3 .[facility] - R2 Cenova Version 2.4 .[facility] - R2 Cenova Version 2.4 .[facility] - R2 Scientific Diver Version 9.2 IMPRESSION: NORMAL MAMMOGRAM. BIRADS 1. BREAST DENSITY: c. The breasts are heterogeneously dense, which may obscure small masses. BIRAD: 1 NEGATIVE RECOMMENDATION: ROUTINE SCREENING Please continue yearly bilateral screening mammography/tomosynthesis in February 2019 COMMENT: The patient has been notified of the results by letter per SA requirements. Additional no tification policies are in place for contacting patient with suspicious or incomplete findings. Quality ID #[id number]: The [employer] recommends an annual screening mammogram for women aged 40 years or over. This facility utilizes a reminder system to ensure that all patients receive reminder letters, and/or direct phone calls for appointments. This includes reminders for routine scr eening mammograms, diagnostic mammograms, or other Breast Imaging Interventions when appropriate. Th is patient will be placed in the appropriate reminder system. The [employer] (ACR) has developed recommendations for screening MRI of the breast s in certain patient populations, to be used in conjunction with mammography. Breast MRI surveillanc e may be appropriate for women with more than 20% lifetime risk of developing breast cancer as deter mined by genetic testing, significant family history of the disease, or history of mantle radiation f or Hodgkins Disease. ACR Practice Guidelines 2008. TECHNICAL DOCUMENTATION: FINDING NUMBER: (1) ASSESSMENT: (1) JOB ID: [id number] [employer]- All Rights Reserved Reading location - IP/workstation name: [email or web address]
--- NOTE | 2018-03-03 18:58 | XCELERA REPORT ---
[address] [address] Transthoracic Echocardiogram Report Name: CURT MONTERO Age: 67 yrs Gender: Female : 1950 Patient Status: Outpatient Patient Location: Study Date: 03/03/2018 09:40 AM Height: 60 in Weight: 80 lb BSA: 1.3 m2 Procedure: A complete two-dimensional transthoracic echocardiogram was performed (2D, M-mode, spectral and color flow Doppler). The study was technically difficult with many images being suboptimal in quality. Reason For Study: CHF Ordering Physician: MAO POPE Performed By: Edouard Nice Interpretation Summary Left ventricular systolic function is low normal. Consider additional methods to assess LVEF such as MUGA scan, CTA heart, cardiac MRI, COLBY, etc. if clinically indicated. The left ventricle is grossly normal size. There is mild concentric left ventricular hypertrophy. LV diastolic function could not be adequately assessed. Not all wall segments were well visualized. Regional wall motion abnormalities cannot be excluded due to limited visualization. The right ventricle is not well visualized secondary to technical limitations Right atrium not well visualized secondary to technical limitations The left atrium is mildly dilated. There is no mitral valve stenosis. There is a mild to moderate amount of mitral regurgitation There is no aortic valve stenosis There is a mild amount of aortic regurgitation There is a trace or physiologic amount of tricuspid regurgitation Tricuspid regurgitation jet envelope not well defined to measure RV systolic pressure accurately. The aortic root is not well visualized. The inferior vena cava was not well visualized There is no pericardial effusion. MMode/2D Measurements & Calculations RVDd: 3.5 cm LVIDd: 5.1 cm FS: 37.7 % Ao root diam: 3.3 cm IVSd: 0.70 cm LVIDs: 3.2 cm EDV(Teich): 123.8 ml LVPWd: 0.78 cmESV(Teich): 40.3 ml Ao root area: 8.4 cm2 EF(Teich): 67.4 % LA dimension: 4.0 cm LVOT diam: 2.0 cm LVOT area: 3.0 cm2 Doppler Measurements & Calculations MV E max esteban: MV P1/2t max esteban: Ao V2 max: AI max esteban: 51.8 cm/sec 47.3 cm/sec 132.0 cm/sec 202.7 cm/sec MV A max esteban: MV P1/2t: 35.0 msec Ao max PG: AI max P.1 cm/sec MVA(P1/2t): 6.3 cm2 7.0 mmHg 16.4 mmHg MV E/A: 1.6 MV dec slope: AMANUEL(V,D): 1.7 cm2AI dec slope: 396.2 cm/sec2 90.3 cm/sec2 MV dec time: AI P1/2t: 0.24 sec 657.2 msec LV V1 max PG: TV V2 max: PA V2 max: PI end-d esteban: 2.3 mmHg 250.0 cm/sec 64.5 cm/sec 159.8 cm/sec LV V1 max: TV max P.0 mmHg PA max P.0 cm/sec 1.7 mmHg LV dP/dt: 505.0 mmHg/s Left Ventricle The left ventricle is grossly normal size. There is mild concentric left ventricular hypertrophy. Left ventricular systolic function is low normal. Consider additional methods to assess LVEF such as MUGA scan, CTA heart, cardiac MRI, COLBY, etc. if clinically indicated. LV diastolic function could not be adequately assessed. Not all wall segments were well visualized. Regional wall motion abnormalities cannot be excluded due to limited visualization. Right Ventricle The right ventricle is not well visualized secondary to technical limitations. Atria Right atrium not well visualized secondary to technical limitations. The left atrium is mildly dilated. Mitral Valve The mitral valve leaflets are sclerotic, but show no functional abnormalities. There is no mitral valve stenosis. There is a mild to moderate amount of mitral regurgitation. Aortic Valve The aortic valve is not well visualized secondary to technical limitations. There is no aortic valve stenosis. There is a mild amount of aortic regurgitation. Tricuspid Valve The tricuspid valve is not well visualized secondary to technical limitations. There is no tricuspid stenosis. There is a trace or physiologic amount of tricuspid regurgitation. Tricuspid regurgitation jet envelope not well defined to measure RV systolic pressure accurately. Pulmonic Valve The pulmonic valve is not well visualized. Great Vessels The aortic root is not well visualized. The inferior vena cava was not well visualized. Effusions There is no pericardial effusion. Incidental Findings Pacemaker wire noted. : MAO POPE > Harpreet Whitley
== END ==
LOC: SP 09:14
PROVIDERS: ATTEND Internal Medicine
DX: Z12.31 Encounter for screening mammogram for malignant neoplasm of breast (principal); M81.0 Age-related osteoporosis without current pathological fracture; E55.9 Vitamin D deficiency, unspecified; E78.5 Hyperlipidemia, unspecified; E03.9 Hypothyroidism, unspecified; D64.9 Anemia, unspecified; R10.9 Unspecified abdominal pain; I50.9 Heart failure, unspecified
CPT/HCPCS: 36415; 77067; 77080; 80053; 80061; 82306; 84443; 85025; 93306

== ENCOUNTER → 2019-02-09 | Outpatient (CLI) | payer MEDICARE ==
--- NOTE | 2019-02-09 11:01 | RADIOLOGY REPORT (SQ) ---
EXAM DESCRIPTION: CT ABD/PELVIS WITH IV ORAL COMPLETED DATE/TIME: 02/09/2019 10:21 am REASON FOR STUDY: BLADDER CA (C67.9) C67.9 MALIGNANT NEOPLASM OF BLADDER, UNSPECIFIED COMPARISON: 02/03/2018 TECHNIQUE: CT scan of the abdomen and pelvis performed using helical scanning technique with dynamic intravenous contrast injection. Oral contrast. Images reviewed with lung, soft tissue, and bone win dows. Reconstructed coronal and sagittal MPR images reviewed. Delayed images for evaluation of the ur inary system also acquired. All images stored on PACS. All CT scanners at this facility use dose modulation, iterative reconstruction, and/or weight based d osing when appropriate to reduce radiation dose to as low as reasonably achievable (ALARA). [facility]: Dose Right [facility]: CareDose [facility]: Dose Right [facility]: Teradose 4D [facility]: [employer] CONTRAST TYPE AND DOSE: contrast/concentration: Isovue 300.00 mg/ml; Total Contrast Delivered: 47.0 ml; Total Saline Delivered: 65.0 ml RENAL FUNCTION: Creatinine 1 RADIATION DOSE: CT Rad equipment meets quality standard of care and radiation dose reduction techniq ues were employed. CTDIvol: 2.3 - 3.2 mGy. DLP: 244 mGy-cm.. LIMITATIONS: Upper portion of the stomach is not included. FINDINGS: LOWER CHEST: No significant findings. No nodules or infiltrates. LIVER: Normal size. No masses. No dilated ducts. SPLEEN: Normal size. No focal lesions. PANCREAS: No masses. No significant calcifications. No adjacent inflammation or peripancreatic fluid collections. Pancreatic duct not dilated. GALLBLADDER: No identified stones by CT criteria. No inflammatory changes to suggest cholecystitis. ADRENAL GLANDS: There is a 2 cm left adrenal nodule. RIGHT KIDNEY AND URETER: Surgically absent. LEFT KIDNEY AND URETER: No solid masses. No significant calcifications. No hydronephrosis or hydr oureter. AORTA AND VESSELS: No aneurysm. No dissection. Renal arteries, SMA, celiac without stenosis. RETROPERITONEUM: No retroperitoneal adenopathy, hemorrhage or masses. BOWEL AND PERITONEAL CAVITY: No masses or inflammatory changes. No free fluid or peritoneal masses. APPENDIX: Normal. PELVIS: No pelvic mass. The bladder is not optimally evaluated. Cannot exclude a mass in the right side of the bladder posteriorly. ABDOMINAL WALL: No masses. No hernias. BONES: No significant or acute findings. OTHER: No other significant finding. IMPRESSION: Stable left adrenal nodule. Possible bladder mass. Right nephrectomy. TECHNICAL DOCUMENTATION: JOB ID: [id number] Quality ID # [id number]: Final reports with documentation of one or more dose reduction techniques (e.g., Au tomated exposure control, adjustment of the mA and/or kV according to patient size, use of iterative reconstruction technique) 2010 [email or web address]- All Rights Reserved Reading location - IP/workstation name: [email or web address]
== END ==
LOC: RAD 09:06
PROVIDERS: ATTEND Internal Medicine Medical Oncology
DX: C67.9 Malignant neoplasm of bladder, unspecified (principal); E27.8 Other specified disorders of adrenal gland
CPT/HCPCS: 74177; 82565

== ENCOUNTER → 2019-04-30 | Outpatient (CLI) | payer MEDICARE ==
[2019-04-30 11:10] LABS: ABSOLUTE EOSINOPHILS # (AUTO) 0.1 10^3/uL (0.0-0.6); ABSOLUTE MONOCYTES (AUTO) 0.9 10^3/uL (0.1-1.4); ABSOLUTE NEUT (AUTO) 5.6 10^3/uL (1.7-8.2); BASOPHILS % (AUTO) 0.3 % (0-2); EOSINOPHILS % (AUTO) 1.4 % (0-6); HEMATOCRIT 39.4 % (36.0-47.0); HEMOGLOBIN 13.6 g/dL (12.0-15.5); LYMPHOCYTES % (AUTO) 23.1 % (13-45); MEAN CORPUSCULAR HEMOGLOBIN 30.4 pg (27.0-33.4); MEAN CORPUSCULAR HGB CONC 34.4 g/dL (32.0-36.0); MEAN CORPUSCULAR VOLUME 88 fl (80-97); MONOCYTES % (AUTO) 10.2 % (3-13); PLATELET COUNT 315 10^3/uL (150-450); RED BLOOD COUNT 4.46 10^6/uL (3.72-5.28); RED CELL DISTRIBUTION WIDTH 12.6 % (11.5-14.0); TOTAL CELLS COUNTED % (AUTO) 100 %; WHITE BLOOD COUNT 8.7 10^3/uL (4.0-10.5)
[2019-04-30 11:27] LABS: APPEARANCE,URINE CLOUDY; BILIRUBIN,URINE NEGATIVE (NEGATIVE); GLUCOSE, URINE NEGATIVE (NEGATIVE); KETONES,URINE NEGATIVE (NEGATIVE); LEUKOCYTE ESTERASE,URINE TRACE (NEGATIVE); NITRITE,URINE NEGATIVE (NEGATIVE); PROTEIN,URINE 100 mg/dL (NEGATIVE); URINE SPECIFIC GRAVITY 1.019; UROBILINOGEN,URINE NEGATIVE mg/dL (<2.0)
[2019-04-30 11:29] LABS: COLOR,URINE YELLOW
[2019-04-30 11:30] LABS: ALBUMIN 4.4 g/dL (3.5-5.0); ALKALINE PHOSPHATASE 102 U/L (38-126); AMYLASE 135 U/L (30-110); ANION GAP 13 (5-19); ASPARTATE AMINO TRANSFERASE 28 U/L (14-36); BILIRUBIN,DIRECT 0.1 mg/dL (0.0-0.4); BILIRUBIN,TOTAL 0.4 mg/dL (0.2-1.3); BLOOD UREA NITROGEN 22 mg/dL (7-20); CALCIUM 9.5 mg/dL (8.4-10.2); CARBON DIOXIDE 28 mmol/L (22-30); CHLORIDE 97 mmol/L (98-107); GLUCOSE 89 mg/dL (75-110); POTASSIUM 4.4 mmol/L (3.6-5.0); TOTAL PROTEIN 7.7 g/dL (6.3-8.2)
== END ==
LOC: OD 09:46
PROVIDERS: ATTEND Family Medicine
DX: R11.2 Nausea with vomiting, unspecified (principal); R35.0 Frequency of micturition
CPT/HCPCS: 36415; 80053; 81001; 82150; 83690; 85025

== ENCOUNTER → 2019-06-15 | Outpatient (CLI) | payer MEDICARE ==
[2019-06-15 16:54] LABS: ABSOLUTE EOSINOPHILS # (AUTO) 0.1 10^3/uL (0.0-0.6); ABSOLUTE LYMPHOCYTES (AUTO) 1.4 10^3/uL (0.5-4.7); ABSOLUTE MONOCYTES (AUTO) 1.1 10^3/uL (0.1-1.4); ABSOLUTE NEUT (AUTO) 6.5 10^3/uL (1.7-8.2); BASOPHILS % (AUTO) 0.2 % (0-2); EOSINOPHILS % (AUTO) 1.4 % (0-6); HEMATOCRIT 35.5 % (36.0-47.0); HEMOGLOBIN 12.3 g/dL (12.0-15.5); LYMPHOCYTES % (AUTO) 15.7 % (13-45); MEAN CORPUSCULAR HEMOGLOBIN 30.2 pg (27.0-33.4); MEAN CORPUSCULAR HGB CONC 34.6 g/dL (32.0-36.0); MEAN CORPUSCULAR VOLUME 88 fl (80-97); MONOCYTES % (AUTO) 11.9 % (3-13); PLATELET COUNT 360 10^3/uL (150-450); RED BLOOD COUNT 4.05 10^6/uL (3.72-5.28); RED CELL DISTRIBUTION WIDTH 12.5 % (11.5-14.0); SEGMENTED NEUTROPHILS % (AUTO) 70.8 % (42-78); TOTAL CELLS COUNTED % (AUTO) 100 %; WHITE BLOOD COUNT 9.2 10^3/uL (4.0-10.5)
[2019-06-15 17:12] LABS: AMORPHOUS SEDIMENT,URINE TRACE /HPF; APPEARANCE,URINE CLOUDY; BILIRUBIN,URINE NEGATIVE (NEGATIVE); COLOR,URINE AMBER; GLUCOSE, URINE NEGATIVE (NEGATIVE); KETONES,URINE NEGATIVE (NEGATIVE); LEUKOCYTE ESTERASE,URINE MODERATE (NEGATIVE); NITRITE,URINE NEGATIVE (NEGATIVE); PROTEIN,URINE >=500 mg/dL (NEGATIVE); URINE SPECIFIC GRAVITY 1.022
[2019-06-15 17:17] LABS: ALBUMIN 3.8 g/dL (3.5-5.0); ALKALINE PHOSPHATASE 126 U/L (38-126); AMYLASE 105 U/L (30-110); ANION GAP 9 (5-19); ASPARTATE AMINO TRANSFERASE 32 U/L (14-36); BILIRUBIN,DIRECT 0.1 mg/dL (0.0-0.4); BILIRUBIN,TOTAL 0.4 mg/dL (0.2-1.3); BLOOD UREA NITROGEN 18 mg/dL (7-20); CALCIUM 9.1 mg/dL (8.4-10.2); CARBON DIOXIDE 29 mmol/L (22-30); CHLORIDE 94 mmol/L (98-107); GLUCOSE 97 mg/dL (75-110); POTASSIUM 4.6 mmol/L (3.6-5.0); TOTAL PROTEIN 7.4 g/dL (6.3-8.2)
== END ==
LOC: OD 15:40
PROVIDERS: ATTEND Family Medicine
DX: R11.0 Nausea (principal); R39.15 Urgency of urination; R63.0 Anorexia
CPT/HCPCS: 36415; 80053; 81001; 82150; 83690; 84443; 85025; 87086

== ENCOUNTER → 2019-07-10 | Outpatient (CLI) | payer MEDICARE | LOC: OD 10:15 | PROVIDERS: ATTEND Specialist | DX: I25.10 Atherosclerotic heart disease of native coronary artery without angina pectoris (principal); I42.0 Dilated cardiomyopathy; E78.49 Other hyperlipidemia; I11.0 Hypertensive heart disease with heart failure; I50.41 Acute combined systolic (congestive) and diastolic (congestive) heart failure; I44.7 Left bundle-branch block, unspecified; I35.1 Nonrheumatic aortic (valve) insufficiency | CPT/HCPCS: 36415; 80162 ==

== ENCOUNTER 2019-07-22 15:15 | Inpatient (IN) | payer MEDICARE ==
[2019-07-22] MEDS ORDERED: ONDANSETRON HCL INJ/PF 4 MG/2 ML SDV IV ONE (16:01)
[2019-07-22] MEDS ORDERED: NORMAL SALINE 1000 ML 1,000 ML IV ONE (16:01)
--- NOTE | 2019-07-22 16:07 | ER Document Report ---
ED Medical Screen (RME) - General Chief Complaint: Nausea/Vomiting Stated Complaint: DEHYDRATION Time Seen by Provider: 07/22/19 15:57 Primary Care Provider: MAHESH VILLEGAS MD [Primary Care Provider] - Follow up as needed Notes: Patient is a 68-year-old female who presents to the emergency department with nausea and vomiting for the past week. She went to her primary care provider today and she was directed to the emergency department for evaluation for dehydration and possible infection. According to her [employer] friends who are with her, the patient has 1 lung and one kidney. Exam: Appears severely dehydrated, tachypneic, ecchymosis noted to back. Patient states that she has been sleeping on a heating pad. Patient is able to tell me her name and date of . I have greeted and performed a rapid initial assessment of this patient. A comprehensive ED assessment and evaluation of the patient, analysis of test results and completion of medical decision making process will be conducted by an additional ED providers. TRAVEL OUTSIDE OF THE [place] IN LAST 30 DAYS: No - Related Data Allergies/Adverse Reactions: No Known Allergies Allergy (Verified 07/22/19 15:52) Past Medical History - Social History Chew tobacco use (# tins/day): No Frequency of alcohol use: None Drug Abuse: None - Past Medical History Cardiac Medical History: Reports: Hx Congestive Heart Failure Denies: Hx Coronary Artery Disease, Hx Heart Attack, Hx Hypertension Pulmonary Medical History: Reports: Hx COPD - LEFT LUNG REMOVED, Hx Pneumonia Denies: Hx Asthma, Hx Bronchitis Neurological Medical History: Denies: Hx Cerebrovascular Accident, Hx Seizures Renal/ Medical History: Denies: Hx Peritoneal Dialysis Malignancy Medical History: Reports: Hx Lung Cancer Musculoskeltal Medical History: Denies Hx Arthritis Psychiatric Medical History: Denies: Hx Depression Past Surgical History: Reports: Hx Cardiac Surgery - defib, Hx Internal Defibrillator, Hx Pacemaker, Hx Urinary Tract Surgery - LEFT KIDNEY and URETER REMOVED, Other - Left pneumonectomy 2002. Denies: Hx Hysterectomy - Immunizations Hx Diphtheria, Pertussis, Tetanus Vaccination: Yes Physical Exam - Vital signs Vitals: Pulse Resp BP Pulse Ox 99 26 H 100/56 L 96 07/22/19 15:17 07/22/19 15:17 07/22/19 15:17 07/22/19 15:17 Course - Vital Signs Vital signs: Temp Pulse Resp BP Pulse Ox 99 26 H 100/56 L 96 07/22/19 15:53 07/22/19 15:53 07/22/19 15:53 07/22/19 15:53 Doctor's Discharge - Discharge Referrals: MAHESH VILLEGAS MD [Primary Care Provider] - Follow up as needed
--- NOTE | 2019-07-22 16:57 | RADIOLOGY REPORT (SQ) ---
EXAM DESCRIPTION: CHEST SINGLE VIEW COMPLETED DATE/TIME: 07/22/2019 4:45 pm REASON FOR STUDY: shortness of breath COMPARISON: 03/06/2017 EXAM PARAMETERS: NUMBER OF VIEWS: One view. TECHNIQUE: Single frontal radiographic view of the chest acquired. RADIATION DOSE: NA LIMITATIONS: None. FINDINGS: LUNGS AND PLEURA: Left pneumonectomy changes. Scarring the right upper lobe. No acute in filtrate or effusion. No mass. MEDIASTINUM AND HILAR STRUCTURES: No masses. Contour normal. HEART AND VASCULAR STRUCTURES: Heart normal in size. Normal vasculature. BONES: No acute findings. HARDWARE: Pacemaker/defibrillator. OTHER: No other significant finding. IMPRESSION: NO ACUTE RADIOGRAPHIC FINDING IN THE CHEST. TECHNICAL DOCUMENTATION: JOB ID: [id number] [facility]- All Rights Reserved Reading location - IP/workstation name: [email or web address]
--- NOTE | 2019-07-22 17:18 | ER Document Report ---
ED General - General Chief Complaint: Nausea/Vomiting Stated Complaint: DEHYDRATION Time Seen by Provider: 07/22/19 15:57 Notes: Ms. Dias is a 68 yo f w/ PMH lung cancer status post left pneumonectomy, right nephrectomy, cardiomyopathy presented to the ED for concern for dehydration by primary care doctor Dr. Noriega. Primary physician was evaluating the patient and concerned about 5 to 8 pounds of weight loss over the past week secondary to ongoing nausea, vomiting and diarrhea ongoing for the past 6 to 7 days. Patient also has known history of CHF and COPD. Patient refused ambulance and was brought in by private ambulance. Patient states that she has been having ongoing vomiting nonstop throughout the day at least 20 episodes. Vomitus is now become clear and yellow in coloration. She previously was having multiple episodes of diarrhea although that has decreased significantly. Patient denies any fevers but she endorses chills. TRAVEL OUTSIDE OF THE [place] IN LAST 30 DAYS: No - Related Data Allergies/Adverse Reactions: No Known Allergies Allergy (Verified 07/22/19 15:52) Past Medical History - Social History Smoking Status: Former Smoker Chew tobacco use (# tins/day): No Frequency of alcohol use: None Drug Abuse: None Family History: COPD Patient has suicidal ideation: No Patient has homicidal ideation: No - Past Medical History Cardiac Medical History: Reports: Hx Congestive Heart Failure Denies: Hx Coronary Artery Disease, Hx Heart Attack, Hx Hypertension Pulmonary Medical History: Reports: Hx COPD - LEFT LUNG REMOVED, Hx Pneumonia Denies: Hx Asthma, Hx Bronchitis Neurological Medical History: Denies: Hx Cerebrovascular Accident, Hx Seizures Renal/ Medical History: Denies: Hx Peritoneal Dialysis Malignancy Medical History: Reports: Hx Lung Cancer Musculoskeletal Medical History: Denies Hx Arthritis Psychiatric Medical History: Denies: Hx Depression Past Surgical History: Reports: Hx Cardiac Surgery - defib, Hx Internal Defibrillator, Hx Pacemaker, Hx Urinary Tract Surgery - LEFT KIDNEY and URETER REMOVED, Other - Left pneumonectomy 2002. Denies: Hx Hysterectomy - Immunizations Hx Diphtheria, Pertussis, Tetanus Vaccination: Yes Hx Pneumococcal Vaccination: 05/18/15 Review of Systems - Review of Systems Constitutional: See HPI EENT: No symptoms reported Cardiovascular: No symptoms reported Respiratory: No symptoms reported Gastrointestinal: See HPI Genitourinary: No symptoms reported Female Genitourinary: No symptoms reported Musculoskeletal: No symptoms reported Skin: No symptoms reported Hematologic/Lymphatic: No symptoms reported Neurological/Psychological: No symptoms reported Physical Exam - Vital signs Vitals: Pulse Resp BP Pulse Ox 99 26 H 100/56 L 96 07/22/19 15:17 07/22/19 15:17 07/22/19 15:17 07/22/19 15:17 Interpretation: Hypotensive, Tachycardic, Tachypneic - General General appearance: Alert, Other - Ill but nontoxic In distress: Mild - HEENT Head: Normocephalic, Atraumatic Eyes: Normal Pupils: PERRL Mucous membranes: Dry - Respiratory Respiratory status: Tachypnea Chest status: Nontender Breath sounds: Other - Decreased breath sounds on the left, consistent with patient's known pneumonectomy Chest palpation: Normal - Cardiovascular Rhythm: Regular Heart sounds: Normal auscultation Murmur: No - Abdominal Inspection: Normal, Other - Old well-healed laparoscopic incisions Distension: No distension Bowel sounds: Normal Tenderness: Tender - Mildly tender throughout without any rebound or guarding. Organomegaly: No organomegaly - Back Back: Normal, Nontender - Extremities General upper extremity: Normal inspection, Nontender, Normal color, Normal ROM, Normal temperature General lower extremity: Normal inspection, Nontender, Normal color, Normal ROM, Normal temperature, Normal weight bearing. No: Georgette's sign - Neurological Neuro grossly intact: Yes Cognition: Normal Orientation: AAOx4 [place] Coma Scale Eye Opening: Spontaneous David Coma Scale Verbal: Oriented [place] Coma Scale Motor: Obeys Commands David Coma Scale Total: 15 Speech: Normal Motor strength normal: LUE, RUE, LLE, RLE Sensory: Normal - Psychological Associated symptoms: Normal affect, Normal mood - Skin Skin Temperature: Warm Skin Moisture: Dry Skin Color: Normal Course - Re-evaluation Re-evalutation: Patient appears clinically dehydrated but generally well. Initial vitals notable for tachycardia, soft blood pressure and tachypnea. Concern for electrolyte abnormality, dehydration, abdominal obstructive process, JUD Labs notable for significant lactic acidosis, leukocytosis as well as left shift. Patient also has new JUD, and significantly elevated BUN to creatinine ratio consistent with dehydration. Multiple electrolyte abnormalities including hyperkalemia, elevated alk phos, hyponatremia. The patient's history of abdominal surgery with a right nephrectomy, will obtain CT abdomen pelvis to rule out obstructive process. For the patient's GFR will not permit for IV contrast therefore she will be given only p.o. contrast. [facility] staff noted that the patient's temperature has become progressively lower from 96 now to 94. Patient was initially given multiple blankets. Now placed on Misha hugger. Remaining 2 L of IV fluids will be via warmed saline. 07/22/19 21:23 Radiology to receive read regarding CT given prolonged nature. Radiologist notes new metastatic lesions to the liver which have appeared since CT obtained in January 2019 however do not appear acute. No evidence of ascites or acute obstructive process. Increased retroperitoneal lymphadenopathy also consistent with metastatic disease. 07/22/19 21:[address] Cárdenas regarding admission. 07/22/19 21:[address] Cárdenas. Daughter in [place] requested to speak to me. I personally spoke to the daughter regarding the new metastasis to the liver. 07/22/19 22:[address] Cárdenas. Recommended admission to [facility]. - Vital Signs Vital signs: Temp Pulse Resp BP Pulse Ox 97.5 F 99 37 H 112/78 99 07/23/19 01:05 07/22/19 15:53 07/23/19 00:22 07/23/19 00:22 07/23/19 00:22 - Laboratory Result Diagrams: 07/22/19 17:12 07/22/19 16:22 Laboratory results interpreted by me: 07/22/19 07/22/19 07/22/19 16:22 17:12 17:12 WBC 20.6 H Seg Neuts % (Manual) 91 H Band Neutrophils % 2 L Lymphocytes % (Manual) 4 L Abs Neuts (Manual) 19.2 H PT 18.5 H Sodium 131.0 L Potassium 5.9 H Chloride 96 L Carbon Dioxide 21 L BUN 86 H Creatinine 1.66 H Est GFR ( Amer) 37 L Est GFR (MDRD) Non-Af 31 L Glucose 112 H Lactic Acid (Sepsis) Calcium 8.1 L Magnesium 2.7 H Direct Bilirubin 0.5 H AST 223 H Alkaline Phosphatase 541 H NT-Pro-B Natriuret Pep Albumin 2.9 L Urine Protein Urine Ketones Urine Blood Leukocyte Esterase Rfl 07/22/19 07/22/19 07/22/19 17:12 17:12 18:35 WBC Seg Neuts % (Manual) Band Neutrophils % Lymphocytes % (Manual) Abs Neuts (Manual) PT Sodium Potassium Chloride Carbon Dioxide BUN Creatinine Est GFR ( Amer) Est GFR (MDRD) Non-Af Glucose Lactic Acid (Sepsis) 4.5 H Calcium Magnesium Direct Bilirubin AST Alkaline Phosphatase NT-Pro-B Natriuret Pep 2880 H Albumin Urine Protein 30 H Urine Ketones TRACE H Urine Blood LARGE H Leukocyte Esterase Rfl LARGE H 07/22/19 21:45 WBC Seg Neuts % (Manual) Band Neutrophils % Lymphocytes % (Manual) Abs Neuts (Manual) PT Sodium Potassium Chloride Carbon Dioxide BUN Creatinine Est GFR ( Amer) Est GFR (MDRD) Non-Af Glucose Lactic Acid (Sepsis) 2.5 H Calcium Magnesium Direct Bilirubin AST Alkaline Phosphatase NT-Pro-B Natriuret Pep Albumin Urine Protein Urine Ketones Urine Blood Leukocyte Esterase Rfl - EKG Interpretation by Ct EKG shows normal: Sinus rhythm, Intervals, ST-T Waves Rate: Tachycardia Rhythm: NSR Voltage: Decreased voltage Discharge - Discharge Clinical Impression: Lactic acid acidosis, JUD (acute kidney injury), Dehydration, Electrolyte abnormality, Liver metastases Leukocytosis Qualifiers: Leukocytosis type: unspecified Qualified Code(s): D72.829 - Elevated white blood cell count, unspecified UTI (urinary tract infection) Qualifiers: Urinary tract infection type: site unspecified Hematuria presence: with hematuria Qualified Code(s): N39.0 - Urinary tract infection, site not specified Condition: Fair Disposition: ADMITTED INPATIENT Admitting Provider: Avi (Hospitalist) Unit Admitted: [facility]
[2019-07-22 17:43] LABS: INTERNATIONAL RATION (INR) 1.53; PROTHROMBIN TIME 18.5 SEC (11.4-15.4)
[2019-07-22 17:44] LABS: PARTIAL THROMBOPLASTIN TIME 32.3 SEC (23.5-35.8)
[2019-07-22 17:46] LABS: HEMATOCRIT 36.7 % (36.0-47.0); HEMOGLOBIN 12.1 g/dL (12.0-15.5); MEAN CORPUSCULAR HEMOGLOBIN 28.5 pg (27.0-33.4); MEAN CORPUSCULAR VOLUME 86 fl (80-97); PLATELET COUNT 437 10^3/uL (150-450); RED BLOOD COUNT 4.25 10^6/uL (3.72-5.28); RED CELL DISTRIBUTION WIDTH 13.8 % (11.5-14.0); WHITE BLOOD COUNT 20.6 10^3/uL (4.0-10.5)
[2019-07-22 18:04] LABS: VENOUS BLOOD HCO3 20.7 mmol/L (20-32); VENOUS BLOOD PCO2 36.9 mmHg (35-63); VENOUS BLOOD PH 7.37 (7.30-7.42)
[2019-07-22 18:07] LABS: ALBUMIN 2.9 g/dL (3.5-5.0); ALKALINE PHOSPHATASE 541 U/L (38-126); ANION GAP 14 (5-19); ASPARTATE AMINO TRANSFERASE 223 U/L (14-36); BILIRUBIN,DIRECT 0.5 mg/dL (0.0-0.4); BLOOD UREA NITROGEN 86 mg/dL (7-20); CALCIUM 8.1 mg/dL (8.4-10.2); CARBON DIOXIDE 21 mmol/L (22-30); CHLORIDE 96 mmol/L (98-107); CREATINE KINASE 66 U/L (30-135); GLUCOSE 112 mg/dL (75-110); POTASSIUM 5.9 mmol/L (3.6-5.0); TOTAL PROTEIN 6.3 g/dL (6.3-8.2)
[2019-07-22 18:07] LABS: ABSOLUTE LYMPHOCYTES# (MANUAL) 0.8 10^3/uL (0.5-4.7); ABSOLUTE MONOCYTES # (MANUAL) 0.6 10^3/uL (0.1-1.4); BAND NEUTROPHILS % (MANUAL) 2 % (3-5); BASOPHILS % (MANUAL) 0 % (0-2); EOSINOPHILS % (MANUAL) 0 % (0-6); LYMPHOCYTES % (MANUAL) 4 % (13-45); MONOCYTES % (MANUAL) 3 % (3-13); NUCLEATED RED BLOOD CELLS 1 /100 WBC (0); SEGMENTED NEUTROPHILS % (MAN) 91 % (42-78); TOTAL CELLS COUNTED 100
[2019-07-22 18:08] LABS: ANISOCYTOSIS SLIGHT; PLATELET COMMENT ADEQUATE
[2019-07-22 18:39] LABS: TROPONIN I 0.041 ng/mL
[2019-07-22] MEDS ORDERED: ASPIRIN 81 MG TABLET, CHEWABLE PO ONE (18:44)
[2019-07-22 19:12] LABS: APPEARANCE,URINE CLOUDY; BILIRUBIN,URINE NEGATIVE (NEGATIVE); COLOR,URINE AMBER; GLUCOSE, URINE NEGATIVE (NEGATIVE); KETONES,URINE TRACE mg/dL (NEGATIVE); PROTEIN,URINE 30 mg/dL (NEGATIVE); URINE SPECIFIC GRAVITY 1.017; UROBILINOGEN,URINE NEGATIVE mg/dL (<2.0)
[2019-07-22] MEDS ORDERED: NORMAL SALINE 1000 ML 2,000 ML IV ONE (21:19)
[2019-07-22] MEDS ORDERED: CEFTRIAXONE 1 GM/D5W RTU 1 GM/50 ML RTUPB IV ONE ×2 (21:21→23:00)
--- NOTE | 2019-07-22 21:26 | RADIOLOGY REPORT (SQ) ---
EXAM DESCRIPTION: CT ABDOMEN PELVIS WITHOUT IV CONTRAST COMPLETED DATE/TME: 07/22/2019 18:44 CLINICAL HISTORY: 68 years, Female, abd pain, nonstop vomiting This exam was performed according to our departmental dose-optimization program which includes automated exposure control, adjustment of the mA and/or kVp according to patient size and/or use of iterative reconstruction technique where applicable. Compared to CT abdomen dated 02/09/2019. FINDINGS: Visualized lung bases demonstrate small left pleural effusion with left basilar atelectasis. Volume loss in left chest. Liver demonstrates diffuse hypodense ill-defined lesions which appears new from the prior study. These are suspicious for metastatic disease. No biliary dilatation. Status post right nephrectomy. Left kidney is within normal limits with no hydronephrosis. Adrenal glands are within normal limits. Pancreas is within normal limits. No dilated loops of bowel to suggest obstruction. Mild amount of stool in the colon. No free fluid or free air. Moderate retroperitoneal para-aortic and iliac chain lymphadenopathy is noted, worst along the right iliac chain. No abdominal aortic aneurysm. No free fluid or free air. IMPRESSION: Interval development of hepatic metastases and retroperitoneal lymphadenopathy consistent with malignancy. No evidence for bowel obstruction.
[2019-07-22] MEDS ORDERED: MAG HYDROX/AL HYDROX/SIMETH SUSP 30 ML UDCUP PO PRN (22:20)
[2019-07-22] MEDS ORDERED: IPRATROPIUM/ALBUTEROL 0.5-2.5 MG/3 ML AMPUL NEB PRN (22:20)
[2019-07-22] MEDS ORDERED: MAGNESIUM HYDROXIDE SUSP 30 ML UDCUP PO PRN (22:20)
[2019-07-22] MEDS ORDERED: ACETAMINOPHEN 325 MG TABLET PO PRN (22:20)
[2019-07-22] MEDS ORDERED: LACTULOSE SYRUP 20 GM/30 ML UDCUP PO ONE (22:24)
[2019-07-22] MEDS ORDERED: VANCOMYCIN HCL 0 MG in DEXTROSE 5%-WATER 250 ML IV NR (22:30)
[2019-07-22] MEDS ORDERED: VANCOMYCIN HCL INJ 1000 MG VIAL IV PRN (22:56)
[2019-07-22] MEDS ORDERED: HYDROCORTISONE SOD SUCCINATE INJ/PF 100 MG/2 ML SDV IV ONE (23:00)
[2019-07-22] MEDS ORDERED: VANCOMYCIN HCL 750 MG in DEXTROSE 5%-WATER 250 ML IV ONE (23:00)
[2019-07-23] MEDS ORDERED: ZOLPIDEM TARTRATE 5 MG TABLET PO ONE (00:12)
[2019-07-23] MEDS ORDERED: INFLUENZA QUAD (6MOS+) 2019-20 VAC 0.5 ML SYR IM ONE (02:44)
[2019-07-23 05:10] LABS: HEMATOCRIT 35.7 % (36.0-47.0); HEMOGLOBIN 11.7 g/dL (12.0-15.5); MEAN CORPUSCULAR HEMOGLOBIN 28.4 pg (27.0-33.4); MEAN CORPUSCULAR HGB CONC 32.8 g/dL (32.0-36.0); MEAN CORPUSCULAR VOLUME 87 fl (80-97); PLATELET COUNT 395 10^3/uL (150-450); RED BLOOD COUNT 4.12 10^6/uL (3.72-5.28); RED CELL DISTRIBUTION WIDTH 13.7 % (11.5-14.0); WHITE BLOOD COUNT 21.4 10^3/uL (4.0-10.5)
[2019-07-23 05:24] LABS: ANION GAP 14 (5-19); BLOOD UREA NITROGEN 68 mg/dL (7-20); CALCIUM 7.6 mg/dL (8.4-10.2); CARBON DIOXIDE 17 mmol/L (22-30); CHLORIDE 101 mmol/L (98-107); GLUCOSE 93 mg/dL (75-110)
[2019-07-23] MEDS: OXYCODONE HCL IR 5 MG TABLET PO PRN (05:49)
[2019-07-23] MEDS: HEPARIN SOD (PORCINE) 5,000 UNIT/ML 1 ML VIAL SUBCUT SCH ×3 (05:50→22:54)
[2019-07-23] MEDS ORDERED: HYDROCORTISONE SOD SUCCINATE INJ/PF 100 MG/2 ML SDV IV SCH (06:00)
[2019-07-23 06:01] LABS: ABSOLUTE LYMPHOCYTES# (MANUAL) 0.6 10^3/uL (0.5-4.7); ABSOLUTE MONOCYTES # (MANUAL) 0.2 10^3/uL (0.1-1.4); BASOPHILS % (MANUAL) 0 % (0-2); EOSINOPHILS % (MANUAL) 0 % (0-6); LYMPHOCYTES % (MANUAL) 2 % (13-45); MONOCYTES % (MANUAL) 1 % (3-13); SEGMENTED NEUTROPHILS % (MAN) 96 % (42-78); TOTAL CELLS COUNTED 100
[2019-07-23 06:02] LABS: PLATELET COMMENT ADEQUATE
--- NOTE | 2019-07-23 06:16 | PDOC H&P ---
History of Present Illness Admission Date/PCP: 07/22/19 22:16 LILIANA LAGUNA MD Patient complains of: Nausea vomiting and diarrhea History of Present Illness: CURT MONTERO is a 68 year old female with an extensive medical history of left-sided pneumonectomy for lung cancer, nephrectomy for renal cancer, coronary artery disease and hypertension. She presents with nausea vomiting and diarrhea for approximately 1 week associated with weight loss she is referred to the emergency department by primary care Dr. Laguna. In the emergency room she is found to have hypothermia, leukocytosis, pyuria, acute renal failure. CT is negative for hydronephrosis or abscess but significant for metastatic liver disease and lymphadenopathy. She started on empiric antibiotics, IV fluids, bear hugger and referred to the hospitalist for admission. Past Medical History Cardiac Medical History: Reports: Congestive Heart Failure Denies: Coronary Artery Disease, Myocardial Infarction, Hypertension Pulmonary Medical History: Reports: Chronic Obstructive Pulmonary Disease (COPD) - LEFT LUNG REMOVED, Pneumonia Denies: Asthma, Bronchitis Neurological Medical History: Denies: Seizures Malignancy Medical History: Reports: Lung Cancer Musculoskeltal Medical History: Denies: Arthritis Psychiatric Medical History: Denies: Depression Hematology: Reports: Anemia Past Surgical History Past Surgical History: Reports: Internal Defibrillator, Pacemaker, Other - Left pneumonectomy 2002 Denies: Hysterectomy Social History Smoking Status: Former Smoker Electronic Cigarette use?: No Frequency of Alcohol Use: None Hx Recreational Drug Use: No Drugs: None Hx Prescription Drug Abuse: No Family History Family History: COPD Parental Family History Reviewed: Yes Children Family History Reviewed: Yes Sibling(s) Family History Reviewed.: Yes Medication/Allergy Home Medications: Albuterol Sulfate [Ventolin Hfa] 1 - 2 puff IH Q4 PRN #1 [email or web address].[email or web address] 03/08/17 Gabapentin [Neurontin 300 mg Capsule] 300 mg PO BID 07/23/19 Metoprolol Succinate [Toprol Xl 25 mg Tab.sr] 25 mg PO BID 07/23/19 Oxycodone HCl [Oxy-Ir 5 mg Tablet] 5 mg PO Q6HP PRN 07/23/19 Allergies/Adverse Reactions: No Known Allergies Allergy (Verified 07/22/19 15:52) Review of Systems Constitutional: PRESENT: as per HPI, anorexia, chills, fatigue, night sweats, weakness, weight loss Eyes: ABSENT: visual disturbances Ears: ABSENT: hearing changes Cardiovascular: ABSENT: chest pain, dyspnea on exertion, edema, orthropnea, palpitations Respiratory: PRESENT: as per HPI. ABSENT: cough, hemoptysis Gastrointestinal: PRESENT: as per HPI, nausea, vomiting Genitourinary: PRESENT: as per HPI Musculoskeletal: ABSENT: joint swelling Integumentary: ABSENT: rash, wounds Neurological: ABSENT: abnormal gait, abnormal speech, confusion, dizziness, focal weakness, syncope Psychiatric: ABSENT: anxiety, depression, homidical ideation, suicidal ideation Endocrine: ABSENT: cold intolerance, heat intolerance, polydipsia, polyuria Hematologic/Lymphatic: ABSENT: easy bleeding, easy bruising Physical Exam Vital Signs: Temp Pulse Resp BP Pulse Ox 95.7 F L 106 H 28 H 113/63 100 07/23/19 03:42 07/23/19 03:42 07/23/19 03:42 07/23/19 03:42 07/23/19 03:42 Intake & Output 07/21/19 07/22/19 07/23/19 11:59 11:59 11:59 Intake Total 3300 Balance 3300 Weight 37 kg General appearance: PRESENT: cooperative, severe distress, thin, well-developed. ABSENT: disheveled, well-nourished Head exam: PRESENT: atraumatic, normocephalic Eye exam: PRESENT: conjunctiva pink, EOMI, PERRLA. ABSENT: scleral icterus Ear exam: PRESENT: normal external ear exam Mouth exam: PRESENT: dry mucosa, moist, tongue midline Neck exam: ABSENT: carotid bruit, JVD, lymphadenopathy, thyromegaly Respiratory exam: PRESENT: clear to auscultation genaro. ABSENT: rales, rhonchi, wheezes Cardiovascular exam: PRESENT: RRR, tachycardia. ABSENT: diastolic murmur, rubs, systolic murmur Pulses: PRESENT: normal dorsalis pedis pul Vascular exam: PRESENT: normal capillary refill GI/Abdominal exam: PRESENT: normal bowel sounds, soft, tenderness - Right upper quadrant pain. ABSENT: distended, guarding, mass, organolmegaly, rebound Rectal exam: PRESENT: deferred Extremities exam: PRESENT: full ROM. ABSENT: calf tenderness, clubbing, pedal edema Neurological exam: PRESENT: alert, awake, oriented to person, oriented to place, oriented to time, oriented to situation, CN II-XII grossly intact. ABSENT: motor sensory deficit Psychiatric exam: PRESENT: appropriate affect, normal mood. ABSENT: homicidal ideation, suicidal ideation Skin exam: PRESENT: dry, intact, warm. ABSENT: cyanosis, rash Results Laboratory Results: 07/23/19 04:33 07/23/19 04:33 07/22/19 07/22/19 07/22/19 16:22 16:22 17:12 WBC 20.6 H RBC 4.25 Hgb 12.1 Hct 36.7 MCV 86 MCH 28.5 MCHC 33.0 RDW 13.8 Plt Count 437 Seg Neutrophils % Not Reportable VBG pH VBG pCO2 VBG HCO3 VBG Base Excess Sodium 131.0 L Potassium 5.9 H Chloride 96 L Carbon Dioxide 21 L Anion Gap 14 BUN 86 H Creatinine 1.66 H Est GFR ( Amer) 37 L Glucose 112 H Calcium 8.1 L Magnesium 2.7 H Total Bilirubin 1.0 AST 223 H Alkaline Phosphatase 541 H Total Protein 6.3 Albumin 2.9 L TSH 2.30 Urine Color Urine Appearance Urine pH Ur Specific [place] Urine Protein Urine Glucose (UA) Urine Ketones Urine Blood Urine RBC (Auto) 07/22/19 07/22/19 07/23/19 17:33 18:35 04:33 WBC 21.4 H RBC 4.12 Hgb 11.7 L Hct 35.7 L MCV 87 MCH 28.4 MCHC 32.8 RDW 13.7 Plt Count 395 Seg Neutrophils % Not Reportable VBG pH 7.37 VBG pCO2 36.9 VBG HCO3 20.7 VBG Base Excess -4.0 Sodium Potassium Chloride Carbon Dioxide Anion Gap BUN Creatinine Est GFR ( Amer) Glucose Calcium Magnesium Total Bilirubin AST Alkaline Phosphatase Total Protein Albumin TSH Urine Color [place] Urine Appearance CLOUDY Urine pH 5.0 Ur Specific [place] 1.017 Urine Protein 30 H Urine Glucose (UA) NEGATIVE Urine Ketones TRACE H Urine Blood LARGE H Urine RBC (Auto) 33 07/23/19 04:33 WBC RBC Hgb Hct MCV MCH MCHC RDW Plt Count Seg Neutrophils % VBG pH VBG pCO2 VBG HCO3 VBG Base Excess Sodium 131.6 L Potassium 5.0 Chloride 101 Carbon Dioxide 17 L Anion Gap 14 BUN 68 H Creatinine 1.43 H Est GFR ( Amer) 44 L Glucose 93 Calcium 7.6 L Magnesium 2.4 H Total Bilirubin AST Alkaline Phosphatase Total Protein Albumin TSH Urine Color Urine Appearance Urine pH Ur Specific [place] Urine Protein Urine Glucose (UA) Urine Ketones Urine Blood Urine RBC (Auto) 07/22/19 07/22/19 07/22/19 16:22 17:12 22:50 Creatine Kinase 66 Troponin I 0.041 0.051 NT-Pro-B Natriuret Pep 2880 H 07/23/19 04:33 Creatine Kinase Troponin I 0.043 NT-Pro-B Natriuret Pep Impressions: Chest X-Ray 07/22/19 16:01 IMPRESSION: NO ACUTE RADIOGRAPHIC FINDING IN THE CHEST. Abdomen/Pelvis CT 07/22/19 18:44 IMPRESSION: Interval development of hepatic metastases and retroperitoneal lymphadenopathy consistent with malignancy. No evidence for bowel obstruction. Assessment and Plan - Diagnosis (1) UTI (urinary tract infection) Qualifiers: Urinary tract infection type: site unspecified Hematuria presence: with hematuria Qualified Code(s): N39.0 - Urinary tract infection, site not specif ied; R31.9 - Hematuria, unspecified Is this a current diagnosis for this admission?: Yes Plan: Complicated by sepsis. Negative for obstruction, abscess or stone. Empiric antibiotics initiated, follow-up blood and urine culture. (2) Sepsis Is this a current diagnosis for this admission?: Yes Plan: Secondary to UTI, IV fluid challenge, follow-up lactic acid, blood and urine culture. (3) JUD (acute kidney injury) Is this a current diagnosis for this admission?: Yes Plan: Secondary to #1 with sepsis, IV fluid challenge, avoid nephrotoxic meds and doses, follow-up chemistry (4) Liver metastases Is this a current diagnosis for this admission?: Yes Plan: Oncology consult - Time Time Spent with patient: 25-34 minutes - Inpatient Certification Medical Necessity: Need Close Monitoring Due to Risk of Patient Decompensation
[2019-07-23] MEDS: NORMAL SALINE 1000 ML 1,000 ML IV PRN (07:11)
[2019-07-23] MEDS: IPRATROPIUM/ALBUTEROL 0.5-2.5 MG/3 ML AMPUL NEB SCH ×2 (07:54→20:17)
[2019-07-23] MEDS: DOCUSATE SODIUM 100 MG CAPSULE PO SCH ×2 (09:14→17:12)
[2019-07-23] MEDS: GABAPENTIN 300 MG CAPSULE PO SCH ×2 (09:14→17:17)
[2019-07-23] MEDS: METOPROLOL SUCCINATE 25 MG TAB.SR.24H PO SCH ×2 (09:14→17:17)
--- NOTE | 2019-07-23 09:40 | PDOC CONSULTATION ---
Consultation Consult Date: 07/23/19 Provider Consulted: MARYLIN RYAN Consult reason:: Hematology/Oncologu consultation was requested for patient with known history of Lung and bladder cancer with new abnormal CT scans. History of Present Illness Admission Date/PCP: 07/22/19 22:16 LILIANA NORIEGA MD History of Present Illness: CURT MONTERO is a 68 year old female with an extensive medical history of left-sided pneumonectomy for lung cancer, nephrectomy for renal cancer, coronary artery disease and hypertension. She presents with nausea vomiting and diarrhea for approximately 1 week associated with weight loss she was referred to the emergency department by primary care Dr. Noriega. In the emergency room she was found to have hypothermia, leukocytosis, pyuria, and acute renal failure. CT is negative for hydronephrosis or abscess but significant for metastatic liver disease and lymphadenopathy. She started on empiric antibiotics, IV fluids, bear hugger and referred to the hospitalist for admission. She has been followed by Dr. Harrington with oncology in [place] and most recently saw him in January of this year. At that time, recent CT from [facility] showed no evidence of recurrence. She has not been on any active treatment since she underwent surgery at [facility] in Aug 2017. Today, she tells me that she lives by herself and tried to avoid coming to the hospital, but a neighbor brought her in when she "almost passed out." She states that her vomiting has stopped but she has no appetite. She denies any dyspnea or chest pain. Past Medical History Cardiac Medical History: Reports: Congestive Heart Failure Denies: Coronary Artery Disease, Myocardial Infarction, Hypertension Pulmonary Medical History: Reports: Chronic Obstructive Pulmonary Disease (COPD) - LEFT LUNG REMOVED, Pneumonia Denies: Asthma, Bronchitis Neurological Medical History: Denies: Seizures Malignancy Medical History: Reports: Lung Cancer - treated with pneumonectomy some years ago, Renal (Kidney) Cancer - Kidney and bladder cancer s/p right nephrectomy as well as omentectomy 09/04 Musculoskeltal Medical History: Denies: Arthritis Psychiatric Medical History: Denies: Depression Hematology: Reports: Anemia Past Surgical History Past Surgical History: Reports: Internal Defibrillator, Pacemaker, Other - Left pneumonectomy 2002. Right nephrectomy Denies: Hysterectomy Social History Information Source: Patient Lives with: Alone Smoking Status: Former Smoker Electronic Cigarette use?: No Frequency of Alcohol Use: None Hx Recreational Drug Use: No Drugs: None Hx Prescription Drug Abuse: No Past Social History Note: Daughter lives in [place]. 2 grandchildren. She has been for 10 years. Family History Family History: COPD Parental Family History Reviewed: No Children Family History Reviewed: Yes Sibling(s) Family History Reviewed.: Yes Medication/Allergy Home Medications: Albuterol Sulfate [Ventolin Hfa] 1 - 2 puff IH Q4 PRN #1 [id number].[email or web address] 03/08/17 Gabapentin [Neurontin 300 mg Capsule] 300 mg PO BID 07/23/19 Metoprolol Succinate [Toprol Xl 25 mg Tab.sr] 25 mg PO BID 07/23/19 Oxycodone HCl [Oxy-Ir 5 mg Tablet] 5 mg PO Q6HP PRN 07/23/19 Allergies/Adverse Reactions: No Known Allergies Allergy (Verified 07/22/19 15:52) Review of Systems Constitutional: PRESENT: weakness. ABSENT: fever(s), headache(s) Eyes: ABSENT: visual disturbances Ears: ABSENT: hearing changes Nose, Mouth, and Throat: ABSENT: sore throat Cardiovascular: ABSENT: chest pain Respiratory: ABSENT: cough Gastrointestinal: PRESENT: nausea, vomiting. ABSENT: diarrhea Genitourinary: ABSENT: dysuria Integumentary: ABSENT: rash Neurological: PRESENT: weakness Hematologic/Lymphatic: ABSENT: easy bleeding Physical Exam Vital Signs: Temp Pulse Resp BP Pulse Ox 95.7 F L 105 H 20 113/63 96 07/23/19 03:42 07/23/19 07:54 07/23/19 07:54 07/23/19 03:42 07/23/19 07:54 Intake & Output 07/22/19 07/23/19 07/24/19 06:59 06:59 06:59 Intake Total 3300 Output Total 0 Balance 3300 Weight 97.8 kg General appearance: PRESENT: no acute distress, thin Exam: 68 year old [place] female. Head exam: PRESENT: normocephalic Eye exam: PRESENT: EOMI Mouth exam: PRESENT: tongue midline Neck exam: ABSENT: lymphadenopathy, tenderness Respiratory exam: PRESENT: clear to auscultation genaro, unlabored Cardiovascular exam: PRESENT: RRR GI/Abdominal exam: PRESENT: hyperactive bowel sounds, soft. ABSENT: tenderness Extremities exam: ABSENT: pedal edema Musculoskeletal exam: PRESENT: normal inspection Neurological exam: PRESENT: alert, awake Psychiatric exam: PRESENT: appropriate affect Skin exam: PRESENT: normal color Results Laboratory Results: 07/23/19 04:33 07/23/19 04:33 07/22/19 07/22/19 07/22/19 16:22 16:22 17:12 WBC 20.6 H RBC 4.25 Hgb 12.1 Hct 36.7 MCV 86 MCH 28.5 MCHC 33.0 RDW 13.8 Plt Count 437 Seg Neutrophils % Not Reportable VBG pH VBG pCO2 VBG HCO3 VBG Base Excess Sodium 131.0 L Potassium 5.9 H Chloride 96 L Carbon Dioxide 21 L Anion Gap 14 BUN 86 H Creatinine 1.66 H Est GFR ( Amer) 37 L Glucose 112 H Calcium 8.1 L Magnesium 2.7 H Total Bilirubin 1.0 AST 223 H Alkaline Phosphatase 541 H Total Protein 6.3 Albumin 2.9 L TSH 2.30 Urine Color Urine Appearance Urine pH Ur Specific [place] Urine Protein Urine Glucose (UA) Urine Ketones Urine Blood Urine RBC (Auto) 07/22/19 07/22/19 07/23/19 17:33 18:35 04:33 WBC 21.4 H RBC 4.12 Hgb 11.7 L Hct 35.7 L MCV 87 MCH 28.4 MCHC 32.8 RDW 13.7 Plt Count 395 Seg Neutrophils % Not Reportable VBG pH 7.37 VBG pCO2 36.9 VBG HCO3 20.7 VBG Base Excess -4.0 Sodium Potassium Chloride Carbon Dioxide Anion Gap BUN Creatinine Est GFR ( Amer) Glucose Calcium Magnesium Total Bilirubin AST Alkaline Phosphatase Total Protein Albumin TSH Urine Color [place] Urine Appearance CLOUDY Urine pH 5.0 Ur Specific [place] 1.017 Urine Protein 30 H Urine Glucose (UA) NEGATIVE Urine Ketones TRACE H Urine Blood LARGE H Urine RBC (Auto) 33 07/23/19 04:33 WBC RBC Hgb Hct MCV MCH MCHC RDW Plt Count Seg Neutrophils % VBG pH VBG pCO2 VBG HCO3 VBG Base Excess Sodium 131.6 L Potassium 5.0 Chloride 101 Carbon Dioxide 17 L Anion Gap 14 BUN 68 H Creatinine 1.43 H Est GFR ( Amer) 44 L Glucose 93 Calcium 7.6 L Magnesium 2.4 H Total Bilirubin AST Alkaline Phosphatase Total Protein Albumin TSH Urine Color Urine Appearance Urine pH Ur Specific [place] Urine Protein Urine Glucose (UA) Urine Ketones Urine Blood Urine RBC (Auto) 07/22/19 07/22/19 07/22/19 16:22 17:12 22:50 Creatine Kinase 66 Troponin I 0.041 0.051 NT-Pro-B Natriuret Pep 2880 H 07/23/19 04:33 Creatine Kinase Troponin I 0.043 NT-Pro-B Natriuret Pep Impressions: Chest X-Ray 07/22/19 16:01 IMPRESSION: NO ACUTE RADIOGRAPHIC FINDING IN THE CHEST. Abdomen/Pelvis CT 07/22/19 18:44 IMPRESSION: Interval development of hepatic metastases and retroperitoneal lymphadenopathy consistent with malignancy. No evidence for bowel obstruction. Status: Image reviewed by me Assessment & Plan - Diagnosis (1) UTI (urinary tract infection) Qualifiers: Urinary tract infection type: site unspecified Hematuria presence: with hematuria Qualified Code(s): N39.0 - Urinary tract infection, site not specified; R31.9 - Hematuria, unspecified Is this a current diagnosis for this admission?: Yes Plan: On appropriate antibiotics. (2) Hypotension Is this a current diagnosis for this admission?: Yes Plan: with hyponatremia. Receiving IV fluids. (3) Malnutrition Is this a current diagnosis for this admission?: Yes - Plan Summary Plan Summary: I was able to speak with Dr. Harrington. He confirmed patient's history and has recommended Hospice/palliative care. New Liver lesions are highly suspicious for liver mets. However, patient is not currently strong enough to undergo any therapy if this did prove to be cancer. I spoke with her daughter, Reynaldo. She is planning to arrive here on Friday. She would like for patient to get stronger and then would still like to discuss treatment options, other than Hospice. We discussed MRI brain to rule out brain mets as possible cause of her vomiting as well. I will arrange. Further recommendations based on these results.
--- NOTE | 2019-07-23 13:10 | EKG REPORT ---
SEVERITY:- OTHERWISE NORMAL ECG - SINUS TACHYCARDIA : Confirmed by: Luci Ann MD 23-Jul-2019 13:10:09
[2019-07-23] MEDS: CEFTRIAXONE 1 GM/D5W RTU 1 GM/50 ML RTUPB IV SCH (17:16)
--- NOTE | 2019-07-23 17:42 | PDOC PROGRESS REPORT ---
Subjective Progress Note for:: 07/23/19 Subjective:: No adverse events overnight. No new complaints. She says she is not feeling nauseated now. She still has no appetite. Reason For Visit: SEPSIS ADRENAL INSUF, ARF, LUNG CA W HEPATIC METS Physical Exam Vital Signs: Temp Pulse Resp BP Pulse Ox 97.4 F 100 16 117/71 100 07/23/19 15:33 07/23/19 15:33 07/23/19 15:33 07/23/19 15:33 07/23/19 15:33 Intake & Output 07/22/19 07/23/19 07/24/19 06:59 06:59 06:59 Intake Total 3300 1000 Output Total 0 Balance 3300 1000 Weight 97.8 kg 37 kg General appearance: PRESENT: cooperative, disheveled, mild distress, thin Teeth exam: PRESENT: poor dentation Respiratory exam: PRESENT: clear to auscultation genaro, symmetrical, unlabored. ABSENT: accessory muscle use, chest wall tenderness, crackles, prolonged expira tory phas, rhonchi, tachypnea, wheezes Cardiovascular exam: PRESENT: RRR Pulses: PRESENT: normal carotid pulses Vascular exam: PRESENT: normal capillary refill GI/Abdominal exam: PRESENT: hypoactive bowel sounds, soft. ABSENT: distended, guarding, rebound, tenderness Extremities exam: ABSENT: clubbing, pedal edema Musculoskeletal exam: PRESENT: other - Diffuse muscle wasting. ABSENT: deformity Neurological exam: PRESENT: alert, awake, oriented to person, oriented to place, oriented to situation Psychiatric exam: PRESENT: flat affect Skin exam: PRESENT: dry, mottled, warm Results Laboratory Results: 07/23/19 04:33 07/23/19 04:33 07/22/19 07/22/19 07/22/19 16:22 16:22 17:12 WBC 20.6 H RBC 4.25 Hgb 12.1 Hct 36.7 MCV 86 MCH 28.5 MCHC 33.0 RDW 13.8 Plt Count 437 Seg Neutrophils % Not Reportable VBG pH VBG pCO2 VBG HCO3 VBG Base Excess Sodium 131.0 L Potassium 5.9 H Chloride 96 L Carbon Dioxide 21 L Anion Gap 14 BUN 86 H Creatinine 1.66 H Est GFR ( Amer) 37 L Glucose 112 H Calcium 8.1 L Magnesium 2.7 H Total Bilirubin 1.0 AST 223 H Alkaline Phosphatase 541 H Total Protein 6.3 Albumin 2.9 L TSH 2.30 Urine Color Urine Appearance Urine pH Ur Specific [place] Urine Protein Urine Glucose (UA) Urine Ketones Urine Blood Urine RBC (Auto) 07/22/19 07/22/19 07/23/19 17:33 18:35 04:33 WBC 21.4 H RBC 4.12 Hgb 11.7 L Hct 35.7 L MCV 87 MCH 28.4 MCHC 32.8 RDW 13.7 Plt Count 395 Seg Neutrophils % Not Reportable VBG pH 7.37 VBG pCO2 36.9 VBG HCO3 20.7 VBG Base Excess -4.0 Sodium Potassium Chloride Carbon Dioxide Anion Gap BUN Creatinine Est GFR ( Amer) Glucose Calcium Magnesium Total Bilirubin AST Alkaline Phosphatase Total Protein Albumin TSH Urine Color [place] Urine Appearance CLOUDY Urine pH 5.0 Ur Specific [place] 1.017 Urine Protein 30 H Urine Glucose (UA) NEGATIVE Urine Ketones TRACE H Urine Blood LARGE H Urine RBC (Auto) 33 07/23/19 04:33 WBC RBC Hgb Hct MCV MCH MCHC RDW Plt Count Seg Neutrophils % VBG pH VBG pCO2 VBG HCO3 VBG Base Excess Sodium 131.6 L Potassium 5.0 Chloride 101 Carbon Dioxide 17 L Anion Gap 14 BUN 68 H Creatinine 1.43 H Est GFR ( Amer) 44 L Glucose 93 Calcium 7.6 L Magnesium 2.4 H Total Bilirubin AST Alkaline Phosphatase Total Protein Albumin TSH Urine Color Urine Appearance Urine pH Ur Specific [place] Urine Protein Urine Glucose (UA) Urine Ketones Urine Blood Urine RBC (Auto) 07/22/19 07/22/19 07/22/19 16:22 17:12 22:50 Creatine Kinase 66 Troponin I 0.041 0.051 NT-Pro-B Natriuret Pep 2880 H 07/23/19 07/23/19 04:33 10:38 Creatine Kinase Troponin I 0.043 0.027 NT-Pro-B Natriuret Pep Impressions: Chest X-Ray 07/22/19 16:01 IMPRESSION: NO ACUTE RADIOGRAPHIC FINDING IN THE CHEST. Abdomen/Pelvis CT 07/22/19 18:44 IMPRESSION: Interval development of hepatic metastases and retroperitoneal lymphadenopathy consistent with malignancy. No evidence for bowel obstruction. Assessment and Plan - Diagnosis (1) JUD (acute kidney injury) Is this a current diagnosis for this admission?: Yes Plan: BUN and creatinine are improving on IV fluids (2) Dehydration Is this a current diagnosis for this admission?: Yes Plan: Improving on maintenance IV fluids (3) Liver metastases Is this a current diagnosis for this admission?: Yes Plan: Oncology has been consulted. Dr. Rivas has been in contact with the patient's oncologist in [place] Dr. Harrington who apparently recommended hospice. The patient's daughter is on her way here from out of state and wants to explore treatment options. - Time Time Spent with patient: 25-34 minutes
[2019-07-23] MEDS: ZOLPIDEM TARTRATE 5 MG TABLET PO PRN (22:53)
[2019-07-23] MEDS: VANCOMYCIN HCL 750 MG in DEXTROSE 5%-WATER 250 ML IV SCH (22:54)
[2019-07-24] MEDS: HEPARIN SOD (PORCINE) 5,000 UNIT/ML 1 ML VIAL SUBCUT SCH ×3 (07:15→21:42)
[2019-07-24] MEDS: DOCUSATE SODIUM 100 MG CAPSULE PO SCH ×2 (09:24→17:26)
[2019-07-24 09:28] LABS: HEMATOCRIT 35.5 % (36.0-47.0); HEMOGLOBIN 11.5 g/dL (12.0-15.5); MEAN CORPUSCULAR HEMOGLOBIN 28.4 pg (27.0-33.4); MEAN CORPUSCULAR HGB CONC 32.5 g/dL (32.0-36.0); MEAN CORPUSCULAR VOLUME 87 fl (80-97); PLATELET COUNT 399 10^3/uL (150-450); RED BLOOD COUNT 4.07 10^6/uL (3.72-5.28); RED CELL DISTRIBUTION WIDTH 13.8 % (11.5-14.0); WHITE BLOOD COUNT 24.5 10^3/uL (4.0-10.5)
[2019-07-24] MEDS: GABAPENTIN 300 MG CAPSULE PO SCH ×2 (09:39→17:28)
[2019-07-24] MEDS: METOPROLOL SUCCINATE 25 MG TAB.SR.24H PO SCH ×2 (09:39→17:28)
[2019-07-24] MEDS: IPRATROPIUM/ALBUTEROL 0.5-2.5 MG/3 ML AMPUL NEB SCH ×2 (09:43→20:26)
[2019-07-24 10:06] LABS: ALBUMIN 2.5 g/dL (3.5-5.0); ALKALINE PHOSPHATASE 584 U/L (38-126); ANION GAP 12 (5-19); ASPARTATE AMINO TRANSFERASE 197 U/L (14-36); BILIRUBIN,DIRECT 0.3 mg/dL (0.0-0.4); BILIRUBIN,TOTAL 0.4 mg/dL (0.2-1.3); BLOOD UREA NITROGEN 62 mg/dL (7-20); CALCIUM 7.8 mg/dL (8.4-10.2); CARBON DIOXIDE 17 mmol/L (22-30); CHLORIDE 105 mmol/L (98-107); GLUCOSE 135 mg/dL (75-110); POTASSIUM 4.6 mmol/L (3.6-5.0); TOTAL PROTEIN 5.5 g/dL (6.3-8.2)
[2019-07-24] MEDS: NORMAL SALINE 1000 ML 1,000 ML IV PRN (10:44)
[2019-07-24] MEDS: ZOLPIDEM TARTRATE 5 MG TABLET PO PRN ×2 (11:39→21:41)
--- NOTE | 2019-07-24 15:08 | PDOC PROGRESS REPORT ---
Subjective Progress Note for:: 07/24/19 Subjective:: No adverse events overnight. Vital signs been stable. Urine output is been good. She still has no appetite. She denies any nausea or vomiting. No abdominal pain. She had some company come to see her earlier but they did not stay very long because the patient was not feeling up to having company. Reason For Visit: SEPSIS ADRENAL INSUF, ARF, LUNG CA W HEPATIC METS Physical Exam Vital Signs: Temp Pulse Resp BP Pulse Ox 97.3 F 100 16 100/53 L 99 07/24/19 11:28 07/24/19 14:00 07/24/19 11:28 07/24/19 11:28 07/24/19 11:28 Intake & Output 07/23/19 07/24/19 07/25/19 06:59 06:59 06:59 Intake Total 3300 1550 Output Total 0 200 Balance 3300 1350 Weight 97.8 kg 45.4 kg General appearance: PRESENT: cooperative, disheveled, mild distress, thin Teeth exam: PRESENT: poor dentation Respiratory exam: PRESENT: clear to auscultation genaro, symmetrical, unlabored. ABSENT: accessory muscle use, chest wall tenderness, crackles, prolonged expiratory phas, rhonchi, tachypnea, wheezes Cardiovascular exam: PRESENT: RRR Pulses: PRESENT: normal carotid pulses Vascular exam: PRESENT: normal capillary refill GI/Abdominal exam: PRESENT: hypoactive bowel sounds, soft. ABSENT: distended, guarding, rebound, tenderness Extremities exam: ABSENT: clubbing, pedal edema Musculoskeletal exam: PRESENT: other - Diffuse muscle wasting. ABSENT: deformity Neurological exam: PRESENT: alert, awake, oriented to person, oriented to place, oriented to situation Psychiatric exam: PRESENT: flat affect Skin exam: PRESENT: dry, mottled, warm Results Laboratory Results: 07/24/19 09:15 07/24/19 09:15 07/24/19 07/24/19 09:15 09:15 WBC 24.5 H RBC 4.07 Hgb 11.5 L Hct 35.5 L MCV 87 MCH 28.4 MCHC 32.5 RDW 13.8 Plt Count 399 Sodium 133.7 L Potassium 4.6 Chloride 105 Carbon Dioxide 17 L Anion Gap 12 BUN 62 H Creatinine 1.16 Est GFR ( Amer) 56 L Glucose 135 H Calcium 7.8 L Total Bilirubin 0.4 AST 197 H Alkaline Phosphatase 584 H Total Protein 5.5 L Albumin 2.5 L 07/22/19 07/22/19 07/22/19 16:22 17:12 22:50 Creatine Kinase 66 Troponin I 0.041 0.051 NT-Pro-B Natriuret Pep 2880 H 07/23/19 07/23/19 04:33 10:38 Creatine Kinase Troponin I 0.043 0.027 NT-Pro-B Natriuret Pep Impressions: Chest X-Ray 07/22/19 16:01 IMPRESSION: NO ACUTE RADIOGRAPHIC FINDING IN THE CHEST. Abdomen/Pelvis CT 07/22/19 18:44 IMPRESSION: Interval development of hepatic metastases and retroperitoneal lymphadenopathy consistent with malignancy. No evidence for bowel obstruction. Assessment and Plan - Diagnosis (1) JUD (acute kidney injury) Is this a current diagnosis for this admission?: Yes Plan: BUN and creatinine are improving on IV fluids. Creatinine was normal today but BUN is still elevated, however it is coming down. (2) Dehydration Is this a current diagnosis for this admission?: Yes Plan: Improving on maintenance IV fluids (3) Liver metastases Is this a current diagnosis for this admission?: Yes Plan: Oncology has been consulted. Dr. Rivas has been in contact with the patient's oncologist in [place] Dr. Harrington who apparently recommended hospice. The patient's daughter is on her way here from out of state and wants to explore treatment options. - Time Time Spent with patient: 15-24 minutes
[2019-07-24] MEDS: CEFTRIAXONE 1 GM/D5W RTU 1 GM/50 ML RTUPB IV SCH (17:28)
--- NOTE | 2019-07-24 19:06 | RADIOLOGY REPORT (SQ) ---
EXAM DESCRIPTION: CT HEAD COMBO COMPLETED DATE/TIME: 07/24/2019 5:40 pm REASON FOR STUDY: cancer with mets COMPARISON: 05/11/2014 TECHNIQUE: Axial images acquired through the brain without and with intravenous contrast. Images re viewed with bone, brain and subdural windows. Images stored on PACS. All CT scanners at this facility use dose modulation, iterative reconstruction, and/or weight based d osing when appropriate to reduce radiation dose to as low as reasonably achievable (ALARA). [facility]: Dose Right [facility]: CareDose [facility]: Dose Right [facility]: Teradose 4D [facility]: OurCrowd CONTRAST TYPE AND DOSE: contrast/concentration: Isovue 350.00 mg/ml; Total Contrast Delivered: 50.0 ml; Total Saline Delivered: 50.0 ml RENAL FUNCTION: GFR > 60. RADIATION DOSE: CT Rad equipment meets quality standard of care and radiation dose reduction techniq ues were employed. CTDIvol: 53.2 mGy. DLP: 2354 mGy-cm.. LIMITATIONS: None. FINDINGS: VENTRICLES: Normal size and contour. CEREBRUM: No masses. No hemorrhage. No midline shift. Normal cam/white matter differentiation. No ev idence for acute infarction. No enhancing lesions. CEREBELLUM: No masses. No hemorrhage. No alteration of density. No evidence for acute infarction. No enhancing lesions. EXTRA-AXIAL SPACES: No fluid collections. No enhancing lesions. ORBITS AND GLOBE: No intra- or extraconal masses. Normal contour of globe without masses. CALVARIUM: No fracture. PARANASAL SINUSES: No fluid or mucosal thickening. SOFT TISSUES: No mass or hematoma. OTHER: No other significant finding. IMPRESSION: No acute findings. No enhancing lesions. EVIDENCE OF ACUTE STROKE: NO. TECHNICAL DOCUMENTATION: JOB ID: [id number] Quality ID # [id number]: Final reports with documentation of one or more dose reduction techniques (e.g., Au tomated exposure control, adjustment of the mA and/or kV according to patient size, use of iterative reconstruction technique) 2010 [employer]- All Rights Reserved Reading location - IP/workstation name: [employer]
[2019-07-24] MEDS: VANCOMYCIN HCL 750 MG in DEXTROSE 5%-WATER 250 ML IV SCH (21:41)
[2019-07-25] MEDS: HEPARIN SOD (PORCINE) 5,000 UNIT/ML 1 ML VIAL SUBCUT SCH ×3 (05:49→21:09)
[2019-07-25] MEDS: IPRATROPIUM/ALBUTEROL 0.5-2.5 MG/3 ML AMPUL NEB SCH ×2 (08:51→20:50)
[2019-07-25] MEDS: GABAPENTIN 300 MG CAPSULE PO SCH ×2 (09:01→17:51)
[2019-07-25] MEDS: DOCUSATE SODIUM 100 MG CAPSULE PO SCH ×2 (09:01→17:51)
[2019-07-25] MEDS: METOPROLOL SUCCINATE 25 MG TAB.SR.24H PO SCH ×2 (09:03→17:52)
--- NOTE | 2019-07-25 16:19 | PDOC PROGRESS REPORT ---
Subjective Progress Note for:: 07/25/19 Subjective:: No adverse events overnight. Clinical condition remains unchanged. She still does not want to eat. She denies any nausea or vomiting. She just says that she has no appetite. Reason For Visit: SEPSIS ADRENAL INSUF, ARF, LUNG CA W HEPATIC METS Physical Exam Vital Signs: Temp Pulse Resp BP Pulse Ox 98.1 F 109 H 16 105/63 98 07/25/19 12:05 07/25/19 14:00 07/25/19 12:05 07/25/19 12:05 07/25/19 12:05 Intake & Output 07/24/19 07/25/19 07/26/19 06:59 06:59 06:59 Intake Total 1550 650 Output Total 200 700 Balance 1350 -50 Weight 45.4 kg 44.6 kg General appearance: PRESENT: cooperative, disheveled, mild distress, thin Teeth exam: PRESENT: poor dentation Respiratory exam: PRESENT: clear to auscultation genaro, symmetrical, unlabored. ABSENT: accessory muscle use, chest wall tenderness, crackles, prolonged expiratory phas, rhonchi, tachypnea, wheezes Cardiovascular exam: PRESENT: RRR Pulses: PRESENT: normal carotid pulses Vascular exam: PRESENT: normal capillary refill GI/Abdominal exam: PRESENT: hypoactive bowel sounds, soft. ABSENT: distended, guarding, rebound, tenderness Extremities exam: ABSENT: clubbing, pedal edema Musculoskeletal exam: PRESENT: other - Diffuse muscle wasting. ABSENT: deformity Neurological exam: PRESENT: alert, awake, oriented to person, oriented to place, oriented to situation Psychiatric exam: PRESENT: flat affect Skin exam: PRESENT: dry, mottled, warm Results Laboratory Results: 07/24/19 09:15 07/24/19 09:15 07/22/19 07/22/19 07/22/19 16:22 17:12 22:50 Creatine Kinase 66 Troponin I 0.041 0.051 NT-Pro-B Natriuret Pep 2880 H 07/23/19 07/23/19 04:33 10:38 Creatine Kinase Troponin I 0.043 0.027 NT-Pro-B Natriuret Pep Impressions: Chest X-Ray 07/22/19 16:01 IMPRESSION: NO ACUTE RADIOGRAPHIC FINDING IN THE CHEST. Abdomen/Pelvis CT 07/22/19 18:44 IMPRESSION: Interval development of hepatic metastases and retroperitoneal lymphadenopathy consistent with malignancy. No evidence for bowel obstruction. Head CT 07/24/19 00:00 IMPRESSION: No acute findings. No enhancing lesions. EVIDENCE OF ACUTE STROKE: NO. Assessment and Plan - Diagnosis (1) JUD (acute kidney injury) Is this a current diagnosis for this admission?: Yes Plan: BUN and creatinine are improving on IV fluids. Creatinine was normal but BUN was still high so she still needs some fluid, plus her oral intake is low, actually nonexistent. (2) Dehydration Is this a current diagnosis for this admission?: Yes Plan: Improving on maintenance IV fluids (3) Liver metastases Is this a current diagnosis for this admission?: Yes Plan: Oncology has been consulted. Dr. Rivas has been in contact with the patient's oncologist in [place] Dr. Harrington who apparently recommended hospice. The patient's daughter is on her way here from out of state and wants to explore treatment options. - Time Time Spent with patient: 15-24 minutes
[2019-07-25] MEDS: CEFTRIAXONE 1 GM/D5W RTU 1 GM/50 ML RTUPB IV SCH (17:52)
[2019-07-25] MEDS: ONDANSETRON HCL INJ/PF 4 MG/2 ML SDV IV PRN (20:06)
[2019-07-25] MEDS: ZOLPIDEM TARTRATE 5 MG TABLET PO PRN (21:08)
[2019-07-25] MEDS: VANCOMYCIN HCL 750 MG in DEXTROSE 5%-WATER 250 ML IV SCH (21:11)
[2019-07-25 21:42] LABS: VANCOMYCIN,TROUGH 14.6 ug/mL (5.0-20.0)
[2019-07-26] MEDS: HEPARIN SOD (PORCINE) 5,000 UNIT/ML 1 ML VIAL SUBCUT SCH ×4 (06:09→22:03)
--- NOTE | 2019-07-26 07:49 | PDOC PROGRESS REPORT ---
Subjective Progress Note for:: 07/26/19 Subjective:: Patient denies any complaints. She states that she is breathing well. Denies any pain. Still no appetite. Only eating "a little." Reason For Visit: SEPSIS ADRENAL INSUF, ARF, LUNG CA W HEPATIC METS Physical Exam Vital Signs: Temp Pulse Resp BP Pulse Ox 97.6 F 94 14 114/68 100 07/26/19 03:11 07/26/19 03:11 07/26/19 03:11 07/26/19 03:11 07/26/19 03:11 Intake & Output 07/25/19 07/26/19 07/27/19 06:59 06:59 06:59 Intake Total 650 1965 Output Total 700 650 Balance -50 1315 Weight 44.6 kg 47.4 kg General appearance: PRESENT: no acute distress, thin Head exam: PRESENT: normocephalic Eye exam: PRESENT: EOMI Respiratory exam: PRESENT: crackles - RIght side., unlabored Cardiovascular exam: PRESENT: RRR GI/Abdominal exam: PRESENT: soft, tenderness Extremities exam: ABSENT: pedal edema Neurological exam: PRESENT: alert, awake Psychiatric exam: PRESENT: appropriate affect Skin exam: PRESENT: normal color Results Laboratory Results: 07/24/19 09:15 07/25/19 21:10 07/25/19 21:10 Creatinine 1.11 Est GFR ( Amer) 59 L 07/22/19 07/22/19 07/22/19 16:22 17:12 22:50 Creatine Kinase 66 Troponin I 0.041 0.051 NT-Pro-B Natriuret Pep 2880 H 07/23/19 07/23/19 04:33 10:38 Creatine Kinase Troponin I 0.043 0.027 NT-Pro-B Natriuret Pep Impressions: Chest X-Ray 07/22/19 16:01 IMPRESSION: NO ACUTE RADIOGRAPHIC FINDING IN THE CHEST. Abdomen/Pelvis CT 07/22/19 18:44 IMPRESSION: Interval development of hepatic metastases and retroperitoneal lymphadenopathy consistent with malignancy. No evidence for bowel obstruction. Head CT 07/24/19 00:00 IMPRESSION: No acute findings. No enhancing lesions. EVIDENCE OF ACUTE STROKE: NO. Assessment & Plan - Diagnosis (1) UTI (urinary tract infection) Qualifiers: Urinary tract infection type: site unspecified Hematuria presence: with hematuria Qualified Code(s): N39.0 - Urinary tract infection, site not specified; R31.9 - Hematuria, unspecified Is this a current diagnosis for this admission?: Yes Plan: On appropriate antibiotics. However, UTIs have been recurrent. (2) Hypotension Is this a current diagnosis for this admission?: Yes (3) Malnutrition Is this a current diagnosis for this admission?: Yes Plan: May consider adding Dorabinol or megace. However, with recurrent infections, megace may be contraindicated and dorabinol may prove to be too expensive. (4) Liver metastases Is this a current diagnosis for this admission?: Yes Plan: Her CT brain with contrast did not show any evidence of brain mets. MRI not possible due to pacemaker. Most likely, the cancer is causing her decreased appetite, but she is not strong enough for any aggressive therapy and no chemo is safe to be given while she has any infections. She is a great candidate for Hospice. Her daughter is due to arrive today or tomorrow. Hopefully, patient can be discharged home with daughter for further cancer treatment discussions as outpatient. - Time Time Spent with patient: Less than 15 minutes
[2019-07-26] MEDS: IPRATROPIUM/ALBUTEROL 0.5-2.5 MG/3 ML AMPUL NEB SCH ×2 (07:57→21:16)
--- NOTE | 2019-07-26 08:43 | RADIOLOGY REPORT (SQ) ---
EXAM DESCRIPTION: CT HEAD WITHOUT COMPLETED DATE/TIME: 07/26/2019 8:29 am REASON FOR STUDY: patient fall COMPARISON: 07/24/2019 TECHNIQUE: Axial images acquired through the brain without intravenous contrast. Images reviewed wi th bone, brain and subdural windows. Additional sagittal and coronal reconstructions were generated. Images stored on PACS. All CT scanners at this facility use dose modulation, iterative reconstruction, and/or weight based d osing when appropriate to reduce radiation dose to as low as reasonably achievable (ALARA). [facility]: Dose Right [facility]: CareDose [facility]: Dose Right [facility]: Teradose 4D [facility]: [employer] RADIATION DOSE: CT Rad equipment meets quality standard of care and radiation dose reduction techniq ues were employed. CTDIvol: 48.6 mGy. DLP: 881 mGy-cm. mGy. LIMITATIONS: None. FINDINGS: VENTRICLES: Prominent. CEREBRUM: No masses. No hemorrhage. No midline shift. Areas of low density in the white matter mos t likely due to chronic micro-vascular ischemic change. No evidence for acute infarction. CEREBELLUM: No masses. No hemorrhage. No alteration of density. No evidence for acute infarction. EXTRAAXIAL SPACES: Mild age-related involutional change. No fluid collections. No masses. ORBITS AND GLOBE: No intra- or extraconal masses. Normal contour of globe without masses. CALVARIUM: No fracture. PARANASAL SINUSES: Small amount of fluid left maxillary sinus. SOFT TISSUES: No mass or hematoma. OTHER: No other significant finding. IMPRESSION: MILD CHRONIC CHANGES OF ATROPHY AND MICROVASCULAR ISCHEMIA. NO ACUTE PROCESS. EVIDENCE OF ACUTE STROKE: NO. TECHNICAL DOCUMENTATION: JOB ID: [id number] Quality ID # [id number]: Final reports with documentation of one or more dose reduction techniques (e.g., Au tomated exposure control, adjustment of the mA and/or kV according to patient size, use of iterative reconstruction technique) 2010 [employer]- All Rights Reserved Reading location - IP/workstation name: [email or web address]
--- NOTE | 2019-07-26 08:44 | RADIOLOGY REPORT (SQ) ---
EXAM DESCRIPTION: CT CERVICAL SPINE WITHOUT COMPLETED DATE/TIME: 07/26/2019 8:29 am REASON FOR STUDY: patient fall COMPARISON: None. TECHNIQUE: Axial images acquired through the cervical spine without intravenous contrast. Images re viewed with lung, soft tissue and bone windows. Reconstructed coronal and sagittal MPR images review ed. Images stored on PACS. All CT scanners at this facility use dose modulation, iterative reconstruction, and/or weight based d osing when appropriate to reduce radiation dose to as low as reasonably achievable (ALARA). [facility]: Dose Right [facility]: CareDose [facility]: Dose Right [facility]: Teradose 4D [facility]: [employer] RADIATION DOSE: CT Rad equipment meets quality standard of care and radiation dose reduction techniq ues were employed. CTDIvol: 10.1 mGy. DLP: 252 mGy-cm. mGy. LIMITATIONS: None. FINDINGS: ALIGNMENT: Anatomic. MINERALIZATION: Osteopenia. VERTEBRAL BODIES: No fractures or dislocation. DISCS: No significant disc disease. FACETS, LATERAL MASSES, POSTERIOR ELEMENTS: No fractures. No dislocation. No acute findings. HARDWARE: None in the spine. VISUALIZED RIBS: No fractures. LUNG APICES AND SOFT TISSUES: Postoperative findings of left pneumonectomy in the partially included left hemithorax. OTHER: No other significant finding. IMPRESSION: No fracture or static subluxation of the cervical spine. TECHNICAL DOCUMENTATION: JOB ID: [id number] Quality ID # [id number]: Final reports with documentation of one or more dose reduction techniques (e.g., Au tomated exposure control, adjustment of the mA and/or kV according to patient size, use of iterative reconstruction technique) 2010 [employer]- All Rights Reserved Reading location - IP/workstation name: [email or web address]
[2019-07-26] MEDS: GABAPENTIN 300 MG CAPSULE PO SCH ×2 (10:01→17:33)
[2019-07-26] MEDS: METOPROLOL SUCCINATE 25 MG TAB.SR.24H PO SCH ×2 (10:01→17:20)
[2019-07-26] MEDS: DOCUSATE SODIUM 100 MG CAPSULE PO SCH ×2 (10:01→17:33)
--- NOTE | 2019-07-26 17:25 | PDOC PROGRESS REPORT ---
Subjective Progress Note for:: 07/26/19 Subjective:: No adverse events overnight. Clinical condition remains unchanged. She still does not want to eat. She denies any nausea or vomiting. She just says that she has no appetite. She asked that the IV fluids be stopped today because she was tired of having to get up to go urinate. Reason For Visit: SEPSIS ADRENAL INSUF, ARF, LUNG CA W HEPATIC METS Physical Exam Vital Signs: Temp Pulse Resp BP Pulse Ox 97.9 F 105 H 16 106/70 98 07/26/19 11:56 07/26/19 14:00 07/26/19 11:56 07/26/19 11:56 07/26/19 11:56 Intake & Output 07/25/19 07/26/19 07/27/19 06:59 06:59 06:59 Intake Total 650 1965 Output Total 700 650 Balance -50 1315 Weight 44.6 kg 47.4 kg General appearance: PRESENT: cooperative, disheveled, mild distress, thin Teeth exam: PRESENT: poor dentation Respiratory exam: PRESENT: clear to auscultation genaro, symmetrical, unlabored. ABSENT: accessory muscle use, chest wall tenderness, crackles, prolonged expiratory phas, rhonchi, tachypnea, wheezes Cardiovascular exam: PRESENT: RRR Pulses: PRESENT: normal carotid pulses Vascular exam: PRESENT: normal capillary refill GI/Abdominal exam: PRESENT: hypoactive bowel sounds, soft. ABSENT: distended, guarding, rebound, tenderness Extremities exam: ABSENT: clubbing, pedal edema Musculoskeletal exam: PRESENT: other - Diffuse muscle wasting. ABSENT: deformity Neurological exam: PRESENT: alert, awake, oriented to person, oriented to place, oriented to situation Psychiatric exam: PRESENT: flat affect Skin exam: PRESENT: dry, mottled, warm Results Laboratory Results: 07/24/19 09:15 07/25/19 21:10 07/25/19 21:10 Creatinine 1.11 Est GFR ( Amer) 59 L 07/22/19 07/22/19 07/22/19 16:22 17:12 22:50 Creatine Kinase 66 Troponin I 0.041 0.051 NT-Pro-B Natriuret Pep 2880 H 07/23/19 07/23/19 04:33 10:38 Creatine Kinase Troponin I 0.043 0.027 NT-Pro-B Natriuret Pep Impressions: Chest X-Ray 07/22/19 16:01 IMPRESSION: NO ACUTE RADIOGRAPHIC FINDING IN THE CHEST. Abdomen/Pelvis CT 07/22/19 18:44 IMPRESSION: Interval development of hepatic metastases and retroperitoneal lymphadenopathy consistent with malignancy. No evidence for bowel obstruction. Cervical Spine CT 07/26/19 00:00 IMPRESSION: No fracture or static subluxation of the cervical spine. Head CT 07/26/19 00:00 IMPRESSION: MILD CHRONIC CHANGES OF ATROPHY AND MICROVASCULAR ISCHEMIA. NO ACUTE PROCESS. EVIDENCE OF ACUTE STROKE: NO. Assessment and Plan - Diagnosis (1) JUD (acute kidney injury) Is this a current diagnosis for this admission?: Yes Plan: Resolved (2) Dehydration Is this a current diagnosis for this admission?: Yes Plan: She probably could have used a little bit more IV fluids, but her BUN has come down and she was tired of having to get up to go urinate. (3) Liver metastases Is this a current diagnosis for this admission?: Yes Plan: Her daughter is coming in tomorrow to discuss treatment options. She is now had 2 oncologist recommend hospice, but her daughter apparently wants to discuss other treatment options. Most likely the patient will be discharged home and then follow-up with oncology as an outpatient to discuss further treatment. - Time Time Spent with patient: 15-24 minutes
[2019-07-26] MEDS: CEFTRIAXONE 1 GM/D5W RTU 1 GM/50 ML RTUPB IV SCH (17:33)
[2019-07-26] MEDS: OXYCODONE HCL IR 5 MG TABLET PO PRN (21:58)
[2019-07-26] MEDS: ZOLPIDEM TARTRATE 5 MG TABLET PO PRN (21:58)
[2019-07-26] MEDS: VANCOMYCIN HCL 750 MG in DEXTROSE 5%-WATER 250 ML IV SCH (22:02)
[2019-07-27] MEDS: HEPARIN SOD (PORCINE) 5,000 UNIT/ML 1 ML VIAL SUBCUT SCH ×3 (05:00→21:29)
[2019-07-27] MEDS: IPRATROPIUM/ALBUTEROL 0.5-2.5 MG/3 ML AMPUL NEB SCH (08:40)
--- NOTE | 2019-07-27 08:54 | PDOC PROGRESS REPORT ---
Subjective Progress Note for:: 07/27/19 Subjective:: Patient is very sleepy and does not speak today. She is able to take a sip of water, but then falls back to sleep. Daughter is present at bedside this morning. She states that patient is still not eating anything, but took a few sips of ensure, then acted as though it was going to come back up. Reason For Visit: SEPSIS ADRENAL INSUF, ARF, LUNG CA W HEPATIC METS Physical Exam Vital Signs: Temp Pulse Resp BP Pulse Ox 97.7 F 108 H 12 122/74 99 07/26/19 23:40 07/27/19 02:00 07/26/19 23:40 07/26/19 23:40 07/26/19 23:40 Intake & Output 07/26/19 07/27/19 07/28/19 06:59 06:59 06:59 Intake Total 1965 675 Output Total 650 Balance 1315 675 Weight 47.4 kg 47.1 kg General appearance: PRESENT: thin Head exam: PRESENT: normocephalic Respiratory exam: PRESENT: unlabored Neurological exam: PRESENT: other - peacefully sleeping Skin exam: PRESENT: normal color Results Laboratory Results: 07/24/19 09:15 07/25/19 21:10 07/22/19 07/22/19 07/22/19 16:22 17:12 22:50 Creatine Kinase 66 Troponin I 0.041 0.051 NT-Pro-B Natriuret Pep 2880 H 07/23/19 07/23/19 04:33 10:38 Creatine Kinase Troponin I 0.043 0.027 NT-Pro-B Natriuret Pep Impressions: Chest X-Ray 07/22/19 16:01 IMPRESSION: NO ACUTE RADIOGRAPHIC FINDING IN THE CHEST. Abdomen/Pelvis CT 07/22/19 18:44 IMPRESSION: Interval development of hepatic metastases and retroperitoneal lymphadenopathy consistent with malignancy. No evidence for bowel obstruction. Cervical Spine CT 07/26/19 00:00 IMPRESSION: No fracture or static subluxation of the cervical spine. Head CT 07/26/19 00:00 IMPRESSION: MILD CHRONIC CHANGES OF ATROPHY AND MICROVASCULAR ISCHEMIA. NO ACUTE PROCESS. EVIDENCE OF ACUTE STROKE: NO. Assessment & Plan - Diagnosis (1) UTI (urinary tract infection) Qualifiers: Urinary tract infection type: site unspecified Hematuria presence: with hematuria Qualified Code(s): N39.0 - Urinary tract infection, site not specified; R31.9 - Hematuria, unspecified Is this a current diagnosis for this admission?: Yes (2) Hypotension Is this a current diagnosis for this admission?: Yes (3) Malnutrition Is this a current diagnosis for this admission?: Yes (4) Liver metastases Is this a current diagnosis for this admission?: Yes - Time Time Spent with patient: 35 or more minutes - Plan Summary Plan Summary: I have a long discussion with the patient and daughter. Daughter had hoped to take patient back to [place] just after [place]. However, she spoke with Dr. Harrington last night who did not recommend this and was told that no further treatment was possible. I explained to the daughter that with the infection, and patient not eating, chemotherapy was not an option. We discussed other options that daughter has read about, including ablation of liver lesions, and I explained why I did not believe these would help at this point. We discussed feeding, and that when the body shuts down, it is no longer able to process food, no matter what we do. We discussed appetite stimulants to see if this would help. I suggested megace, but I have explained that this is a steroids, and may make her more prone to further infections. We also discussed dorabinol, but in my experience, insurance usually will not pay for this and it may be quite expensive. Daughter would like to try Megace for a few days to see if this helps. We also discussed Hospice services and DNR. Daughter states that patient's home is not adequate, but daughter has a [place] home on [place] that would be suitable. She is agreeable to discharge with Hospice services over the next week to see if patient will gain strength and be able to make the trip to [place] or not. I have suggested that she have her and children come here sooner than [place] to spend time with the patient. All questions were answered. I also spoke with Hospitalist and they are in agreement of changing antibiotics to PO and Discharge tomorrow with Hospice.
[2019-07-27] MEDS: OXYCODONE HCL IR 5 MG TABLET PO PRN ×2 (09:19→15:35)
[2019-07-27] MEDS: METOPROLOL SUCCINATE 25 MG TAB.SR.24H PO SCH (09:19)
[2019-07-27] MEDS: DOCUSATE SODIUM 100 MG CAPSULE PO SCH ×2 (09:20→17:03)
[2019-07-27] MEDS: GABAPENTIN 300 MG CAPSULE PO SCH ×2 (09:20→17:03)
[2019-07-27] MEDS: ONDANSETRON HCL INJ/PF 4 MG/2 ML SDV IV PRN (09:34)
[2019-07-27] MEDS ORDERED: MEGESTROL ACETATE SUSP 400 MG/10 ML UDCUP PO SCH (10:00)
--- NOTE | 2019-07-27 10:56 | PDOC PROGRESS REPORT ---
Subjective Progress Note for:: 07/27/19 Reason For Visit: SEPSIS ADRENAL INSUF, ARF, LUNG CA W HEPATIC METS 07/27/2019 Patient admitted for multiple medical problems, Manju is liver cancer with metastases. Patient was also thought to be septic with possible UTI Physical Exam Vital Signs: Temp Pulse Resp BP Pulse Ox 97.9 F 108 H 20 126/98 H 100 07/27/19 08:40 07/27/19 08:40 07/27/19 08:40 07/27/19 08:40 07/27/19 08:40 Intake & Output 07/26/19 07/27/19 07/28/19 06:59 06:59 06:59 Intake Total 1965 675 Output Total 650 Balance 1315 675 Weight 47.4 kg 47.1 kg General appearance: PRESENT: no acute distress Respiratory exam: PRESENT: clear to auscultation genaro. ABSENT: rales, rhonchi, wheezes Cardiovascular exam: PRESENT: RRR. ABSENT: diastolic murmur, rubs, systolic murmur Neurological exam: PRESENT: alert, awake, oriented to person, oriented to place, oriented to time, oriented to situation, CN II-XII grossly intact. ABSENT: motor sensory deficit Psychiatric exam: PRESENT: anxious Results Laboratory Results: 07/24/19 09:15 07/25/19 21:10 07/22/19 07/22/19 07/22/19 16:22 17:12 22:50 Creatine Kinase 66 Troponin I 0.041 0.051 NT-Pro-B Natriuret Pep 2880 H 07/23/19 07/23/19 04:33 10:38 Creatine Kinase Troponin I 0.043 0.027 NT-Pro-B Natriuret Pep Impressions: Chest X-Ray 07/22/19 16:01 IMPRESSION: NO ACUTE RADIOGRAPHIC FINDING IN THE CHEST. Abdomen/Pelvis CT 07/22/19 18:44 IMPRESSION: Interval development of hepatic metastases and retroperitoneal lymphadenopathy consistent with malignancy. No evidence for bowel obstruction. Cervical Spine CT 07/26/19 00:00 IMPRESSION: No fracture or static subluxation of the cervical spine. Head CT 07/26/19 00:00 IMPRESSION: MILD CHRONIC CHANGES OF ATROPHY AND MICROVASCULAR ISCHEMIA. NO ACUTE PROCESS. EVIDENCE OF ACUTE STROKE: NO. Assessment and Plan - Diagnosis (1) JUD (acute kidney injury) Is this a current diagnosis for this admission?: Yes (2) Dehydration Is this a current diagnosis for this admission?: Yes (4) Liver metastases Is this a current diagnosis for this admission?: Yes (5) Sepsis Is this a current diagnosis for this admission?: Yes (6) UTI (urinary tract infection) Qualifiers: Urinary tract infection type: site unspecified Hematuria presence: with hematuria Qualified Code(s): N39.0 - Urinary tract infection, site not specified; R31.9 - Hematuria, unspecified Is this a current diagnosis for this admission?: Yes - Plan Summary Summary: 07/27/2019 Oncology has been a great deal of time talking to the family, starting plan for discharge potentially tomorrow Patient has been on IV Rocephin and vancomycin for 5 days for a UTI. Fortunately no urine culture was done at the time. today a repeat urine with reflex culture is pending Patient will probably need to go home on a few more days of p.o. antibiotics. Switch her today to Keflex. She is also being started on Megace today by oncology Blood cultures have been negative recent CT head scan was negative. Patient will probably be discharged to family's home with hospice - Time Time Spent with patient: 35 or more minutes
[2019-07-27 13:31] LABS: HEMATOCRIT 39.4 % (36.0-47.0); HEMOGLOBIN 12.7 g/dL (12.0-15.5); MEAN CORPUSCULAR HEMOGLOBIN 28.8 pg (27.0-33.4); MEAN CORPUSCULAR HGB CONC 32.2 g/dL (32.0-36.0); MEAN CORPUSCULAR VOLUME 89 fl (80-97); PLATELET COUNT 331 10^3/uL (150-450); WHITE BLOOD COUNT 24.8 10^3/uL (4.0-10.5)
[2019-07-27 13:54] LABS: ANION GAP 16 (5-19); BLOOD UREA NITROGEN 83 mg/dL (7-20); CALCIUM 8.6 mg/dL (8.4-10.2); CARBON DIOXIDE 14 mmol/L (22-30); CHLORIDE 101 mmol/L (98-107); GLUCOSE 100 mg/dL (75-110)
[2019-07-27 13:55] LABS: ABSOLUTE LYMPHOCYTES# (MANUAL) 0.7 10^3/uL (0.5-4.7); ABSOLUTE MONOCYTES # (MANUAL) 0.2 10^3/uL (0.1-1.4); BAND NEUTROPHILS % (MANUAL) 1 % (3-5); BASOPHILS % (MANUAL) 0 % (0-2); EOSINOPHILS % (MANUAL) 0 % (0-6); LYMPHOCYTES % (MANUAL) 3 % (13-45); MONOCYTES % (MANUAL) 1 % (3-13); NUCLEATED RED BLOOD CELLS 1 /100 WBC (0); SEGMENTED NEUTROPHILS % (MAN) 95 % (42-78); TOTAL CELLS COUNTED 100
[2019-07-27 13:56] LABS: ANISOCYTOSIS SLIGHT
[2019-07-27 13:57] LABS: PLATELET COMMENT ADEQUATE
[2019-07-27 14:16] LABS: POTASSIUM 7.7 mmol/L (3.6-5.0)
[2019-07-27] MEDS: CEPHALEXIN 250 MG CAPSULE PO SCH ×2 (15:23→21:30)
[2019-07-27] MEDS ORDERED: NORMAL SALINE 1000 ML 1,000 ML IV PRN (16:39)
[2019-07-27] MEDS ORDERED: LORAZEPAM INJ 2 MG/1 ML VIAL IV PRN (18:28)
[2019-07-27] MEDS ORDERED: METOPROLOL SUCCINATE 25 MG TAB.SR.24H PO SCH (22:00)
[2019-07-27] MEDS ORDERED: MORPHINE SULFATE 10 MG/ML INJ IV PRN (22:55)
[2019-07-28 01:48] VITALS: BP 56/36
--- NOTE | 2019-07-28 15:55 | Death Summary ---
Summary Date : 07/28/19 Time of :: 01:25 Autopsy: No Resuscitation Status: Do Not Resuscitate Primary Care Provider: DASHA Consulting Provider: Day - Final Diagnosis (1) JUD (acute kidney injury) Is this a current diagnosis for this admission?: Yes (2) Dehydration Is this a current diagnosis for this admission?: Yes (4) Liver metastases Is this a current diagnosis for this admission?: Yes (5) Sepsis Is this a current diagnosis for this admission?: Yes (6) UTI (urinary tract infection) Is this a current diagnosis for this admission?: Yes Hospital Course:: Patient was admitted to the hospital on 07/22/2019 for nausea vomiting diarrhea. Has a long and complicated medical history involving left-sided pneumonectomy for lung cancer, nephrectomy for renal cancer, coronary artery disease and hypertension.. She has had nausea vomiting diarrhea for approximately 1 week with weight loss. Patient unfortunately has metastatic liver disease and lymphadenopathy. She was admitted to the hospital for IV fluids, empiric antibiotics, and further conservative measures Complicate matters patient appeared to be septic secondary to urinary tract infection. Patient was seen on the following day by hematology/oncology. They actually spoke with Dr. Harrington who is the oncologist in [place] following the patient. Patient does not appear to be strong enough to undergo any further treatment at this time. The day prior to the patient's her daughter made her a DNR due to the patient's poor prognosis, failure to improve. On the day of patient's respirations became more labored, her level of consciousness became more obtunded. Spoke to the daughter for a long time telling her that I thought that within the next 24 hours patient would . Was pronounced at approximately 0126 hrs.
== END 2019-07-28 03:26 | DRG 872 ==
LOC: ER 15:15 → EH 22:16 → 3S 07-23 02:00
PROVIDERS: ADMIT Internal Medicine; ATTEND Internal Medicine
DX: A41.9 Sepsis, unspecified organism (principal); N17.9 Acute kidney failure, unspecified; N39.0 Urinary tract infection, site not specified; C78.7 Secondary malignant neoplasm of liver and intrahepatic bile duct; C34.92 Malignant neoplasm of unspecified part of left bronchus or lung; C64.9 Malignant neoplasm of unspecified kidney, except renal pelvis; E87.2 Acidosis; E87.1 Hypo-osmolality and hyponatremia; E46 Unspecified protein-calorie malnutrition; Z68.1 Body mass index [BMI] 19.9 or less, adult; R31.9 Hematuria, unspecified; E86.0 Dehydration; I50.9 Heart failure, unspecified; J44.9 Chronic obstructive pulmonary disease, unspecified; E87.5 Hyperkalemia; Z90.2 Acquired absence of lung [part of]; Z90.5 Acquired absence of kidney; Z95.810 Presence of automatic (implantable) cardiac defibrillator
CPT/HCPCS: 36415; 70450; 70470; 71045; 72125; 74176; 80048; 80053; 80202; 81001; 82533; 82550; 82565; 82803; 82962; 83605; 83735; 83880; 84443; 84484; 85025; 85027; 85610; 85730; 87040; 93005; 93010; 96361; 96374; 99285; J0696; J1644; J1720; J2060; J2270; J2405; J3370; J7030; J7060; J7620